=== PATIENT | female | born 1955 | race Caucasian/White ===

== ENCOUNTER 2017-02-24 13:19 | Outpatient (CLI) | payer BC | END 2017-02-24 13:20 | disposition home or self-care (01) | DX: Z12.31 Encounter for screening mammogram for malignant neoplasm of breast (principal); Z85.3 Personal history of malignant neoplasm of breast ==

== ENCOUNTER 2017-06-13 11:44 | Outpatient (CLI) | payer BC ==
--- NOTE | 2017-06-14 08:04 | XRAY Report ---
CHEST, PA AND LATERAL: 06/13/2017 CLINICAL HISTORY: Chronic cough with history of smoking. FINDINGS: Bony thorax shows absence of a small section of the left posterolateral 7th rib. Heart and great vessels are normal. Mediastinum is not widened. Pulmonary parenchyma demonstrates s ignificant elevation of the left hemidiaphragm. This suggests left diaphragmatic paralysis or old pa rtial resection of the left lung. Recommend clinical correlation. Mild atelectasis is noted in the left lower lung field. This most likely is secondary to the elevated left hemidiaphragm. Right lung shows a very slight increased parenchymal disease in the right lower lobe. Findings in th e right lower lobe are minimally progressive since preceding exam dated 05/27/2016. They are nonspec ific. The findings may be a result of mild atelectasis versus minimal pneumonia. Surgical clips are seen superimposed over the right hemithorax. These surgical clips reside in patie nt's right breast. IMPRESSION: 1. PARTIAL RESECTION OF THE POSTEROLATERAL ASPECT OF THE LEFT 7TH RIB. THIS IS EITHER RESULT OF A P RIOR THORACOTOMY OR OLD TRAUMA. 2. ELEVATED LEFT HEMIDIAPHRAGM IS NOTED. THIS MAY BE RESULT OF LEFT DIAPHRAGMATIC PARALYSIS VERSUS A PAST HISTORY OF A THORACOTOMY WITH PARTIAL LEFT LUNG RESECTION. RECOMMEND CLINICAL CORRELATION. 3. MILD INTERSTITIAL PARENCHYMAL DISEASE IS SEEN IN THE RIGHT LOWER LOBE. FINDINGS ARE MILDLY PROGR ESSIVE COMPARED TO 05/27/2016. THEY ARE NONSPECIFIC. ETIOLOGICAL CONSIDERATIONS INCLUDE A MILD P NEUMONIA VERSUS ATELECTASIS. JOB #: [id number] EXT JOB #:[id number]
== END 2017-06-13 11:45 | disposition home or self-care (01) ==
LOC: DI 11:44
PROVIDERS: ATTEND Internal Medicine
DX: J98.4 Other disorders of lung (principal); J98.6 Disorders of diaphragm
CPT/HCPCS: 71020

== ENCOUNTER 2017-07-14 13:04 | Outpatient (CLI) | payer BC ==
--- NOTE | 2017-07-14 16:59 | XRAY Report ---
TWO VIEW CHEST: 07/14/2017 CLINICAL INDICATION: Followup abnormal chest x-ray. COMPARISON: 06/13/2017 Frontal and lateral views of the chest demonstrate stable postoperative changes in the left chest. R ight basilar opacity has improved. No effusion or pneumothorax is seen. IMPRESSION: STABLE POSTOPERATIVE CHANGES IN THE LEFT CHEST. JOB #: [id number] EXT JOB #:[id number]
== END 2017-07-14 13:05 | disposition home or self-care (01) ==
LOC: DI 13:04
PROVIDERS: ATTEND Internal Medicine
DX: R91.8 Other nonspecific abnormal finding of lung field (principal)
CPT/HCPCS: 71020

== ENCOUNTER 2017-08-26 10:51 | Outpatient (CLI) | payer BC ==
--- NOTE | 2017-08-30 11:54 | DEXA Report ---
DEXA SCAN: 08/26/2017 CLINICAL INDICATION: Postmenopausal screening. TECHNIQUE: Dual energy x-ray absorptiometry (DXA) was performed on a Exabre system. Regions measured are the AP spine, femoral neck, and, if needed, forearm. COMPARISON: None. In accordance with the International Society for Clinical Densitometry (ISCD) guidelines, data from previous exams may be reanalyzed using current recommendations and techniques. This is done to allow a more accurate basis for comparison with the current study. FINDINGS The data for the lumbar spine is as follows: REGION BMD (g/cm/cm) T-SCORE Z-SCORE L1 1.166 0.3 1.4 L2 1.507 2.6 3.7 L3 1.568 3.1 4.2 L4 1.577 3.1 4.3 TOTAL 1.468 2.4 3.5 NOTE: All evaluable vertebrae are used for classification. The data for the hip is as follows: REGION BMD (g/cm/cm) T-SCORE Z-SCORE Neck 0.918 -0.9 0.3 TOTAL 0.941 -0.5 0.4 NOTE: The femoral neck or total proximal femur, whichever is lowest, is used for classification. IMPRESSION: THE WHO CLASSIFICATION BASED ON THE INTERNATIONAL REFERENCE STANDARD IS NORMAL. THE FRACTURE RISK IS NOT INCREASED. RECOMMENDATION: Patients with diagnosis of osteoporosis or osteopenia should have regular bone mineral density assessment. For those eligible for Medicare, routine testing is allowed once every 2 years. Testing frequency can be increased for patients who have rapidly progressing disease or for those who are receiving medical therapy to restore bone mass. COMMENT: World Health Organization (WHO) definitions for osteoporosis and osteopenia: NORMAL BMD: T-score at -1.0 or higher, fracture risk is low. OSTEOPENIA BMD: T-score between -1.0 and -2.5, fracture risk is increased. OSTEOPOROSIS BMD: T-score at -2.5 or lower, fracture risk high. National Osteoporosis Foundation recommends: 1. Obtain adequate dietary calcium (at least 1200 mg per day) and vitamin D (400 -800 international units per day). 2. Participate, as appropriate, in regular weightbearing and muscle- strengthening exercise. 3. Avoid tobacco use and reduce alcohol and caffeine intake. 4. For more detailed information see the website at www.NOF.org. MTDD
== END 2017-08-26 10:52 | disposition home or self-care (01) ==
LOC: DI 10:51
PROVIDERS: ATTEND Internal Medicine
DX: Z13.820 Encounter for screening for osteoporosis (principal)
CPT/HCPCS: 77080

== ENCOUNTER 2018-01-31 10:52 | Outpatient (CLI) | payer BC ==
--- NOTE | 2018-01-31 16:45 | CT Report ---
CT OF CHEST WITHOUT CONTRAST FOR LUNG CANCER SCREENIN01/31/2018 INDICATION: A 62-year-old asymptomatic patient with [id number] history of smoking, quit within the last 15 years. TECHNIQUE: Axial CT images of the chest were obtained without intravenous contrast, using low dose screening technique. COMPARISON: Previous chest CT 05/27/2016, previous chest x-ray 07/14/2017. FINDINGS: The heart and great vessels demonstrate mild atherosclerotic calcifications. No hilar or mediastinal lymphadenopathy is present. There are infiltrates in the right middle lobe, lingula, and left lower lobe. Previously seen loculated left pleural effusion has resolved. No suspicious pulmonary nodule or mass lesion is appreciated in the aerated portions of the lungs. No effusion or pneumothorax is present. Limited evaluation of upper abdominal structures demonstrates normal adrenal glands. Osseous structures demonstrate degenerative and postsurgical changes. IMPRESSION: 1. NO SUSPICIOUS PULMONARY NODULE OR MASS LESION IN THE AERATED PORTIONS OF THE LUNGS. 2. RIGHT MIDDLE LOBE, LINGULA, AND LEFT LOWER LOBE INFILTRATES. IF THE PATIENT 'S PRESENTATION IS COMPATIBLE WITH PNEUMONIA, CONSIDER REPEAT SCANNING FOLLOWING APPROPRIATE ANTIBIOTIC THERAPY. IF THE PATIENT IS TRULY ASYMPTOMATIC, BRONCHOSCOPY WOULD BE RECOMMENDED FOR FURTHER EVALUATION. LUNG RADS category 5, potentially clinically significant findings likely not representing lung cancer. Please see above recommendations. cc: Richard Grullon MD TD: 01/31/2018 15:50 cc: Richard Grullon MD MTDD
== END 2018-01-31 10:53 | disposition home or self-care (01) ==
LOC: DI 10:52
PROVIDERS: ATTEND Internal Medicine
DX: Z12.2 Encounter for screening for malignant neoplasm of respiratory organs (principal); R91.8 Other nonspecific abnormal finding of lung field; Z87.891 Personal history of nicotine dependence

== ENCOUNTER 2018-03-06 12:55 | Outpatient (CLI) | payer BC ==
--- NOTE | 2018-03-07 10:42 | Mammography Report ---
DIGITAL SCREENING MAMMOGRAM: 03/06/2018 CLINICAL INDICATION: A 62-year-old with personal history of right breast cancer, status post lumpectomy and radiation therapy, history of late childbearing for screening. COMPARISON: 01/2017, 01/2016, 03/2015, 03/2014, 09/2013, 12/2012, 06/2012, 12/2011, 12/2010, 06/2010. TECHNIQUE: Routine CC and MLO projections were obtained of the breasts. FINDINGS: The breasts again demonstrate heterogeneously dense fibroglandular parenchyma bilaterally. Postoperative and post-treatment changes in the right breast are stable. Coarse, typically benign calcifications are present. No suspicious masses, clustered microcalcifications, or regions of architectural distortion are identified. IMPRESSION: BENIGN FINDINGS. RECOMMENDATION: Routine annual screening unless otherwise clinically indicated. BIRADS CATEGORY 2 - BENIGN FINDINGS. STANDARD QUALIFYING STATEMENTS: 1. This examination was reviewed with the aid of Computer-Aided Detection (CAD). 2. A negative or benign imaging report should not delay biopsy if clinically suspicious findings are present. Consider surgical consultation if warranted. More than 5% of cancers are not identified by imaging. 3. Dense breasts may obscure an underlying neoplasm. TD: 03/07/2018 10:41
== END 2018-03-06 12:56 | disposition home or self-care (01) ==
LOC: DI 12:55
PROVIDERS: ATTEND Internal Medicine
DX: Z12.31 Encounter for screening mammogram for malignant neoplasm of breast (principal); Z85.3 Personal history of malignant neoplasm of breast
CPT/HCPCS: 77067

== ENCOUNTER 2018-07-04 08:00 | Outpatient (CLI) | payer BC | END 2018-07-04 08:01 | LOC: LAB.R 08:00 | PROVIDERS: ATTEND Podiatrist | DX: L03.031 Cellulitis of right toe (principal) | CPT/HCPCS: 87070; 87181; 87205 ==

== ENCOUNTER 2019-03-07 13:14 | Outpatient (CLI) | payer BC ==
--- NOTE | 2019-03-08 08:25 | Mammography Report ---
Reason: ANNUAL SCREENING Procedure Date: 03/07/2019 Accession Number: [id number] / [id number] Procedure: [facility] - Screening Mammo Dig Bilat CPT Code: FULL RESULT: EXAM: Screening Mammo Dig Bilat DATE: 03/07/2019 2:15 PM CLINICAL HISTORY: Screening encounter. Personal history of right breast cancer and late childbearing. TECHNIQUE: (B) - Bilateral CC, laterally exaggerated CC, MLO views were obtained. COMPARISON: 03/06/2018 through 10/08/2013. PARENCHYMAL PATTERN: (D) - The breast(s) demonstrate(s) heterogeneously dense fibroglandular parenchyma. FINDINGS: Postsurgical changes in the right breast are stable. Typically benign coarse calcifications are noted. There are no suspicious masses, calcifications, or areas of distortion. IMPRESSION: Benign findings. BI-RADS category 2. RECOMMENDATION: (ANNUAL) - Recommend routine annual screening mammography. BI-RADS CATEGORY: (2) - Benign Findings. STANDARD QUALIFYING STATEMENTS: 1. This examination was not reviewed with the aid of Computer-Aided Detection (CAD). 2. A negative or benign imaging report should not preclude biopsy if clinically suspicious findings are present. 3. Dense breasts may obscure an underlying neoplasm. 4. This examination was reviewed without the aid of 3D breast imaging (tomosynthesis).
== END 2019-03-07 13:15 | disposition home or self-care (01) ==
LOC: DI 13:14
PROVIDERS: ATTEND Internal Medicine
DX: Z12.31 Encounter for screening mammogram for malignant neoplasm of breast (principal); Z85.3 Personal history of malignant neoplasm of breast
CPT/HCPCS: 77067

== ENCOUNTER 2019-10-04 10:52 | Outpatient (CLI) | payer BC ==
--- NOTE | 2019-10-05 08:19 | XRAY Report ---
Reason: CHRONIC OBSTRUCTIVE LUNG DISEASE Procedure Date: 10/04/2019 Accession Number: [id number] / [id number] Procedure: XRS - Chest 2 View X-Ray CPT Code: 16206 Final Report FULL RESULT: EXAM: CHEST RADIOGRAPHY VIEWS EXAM DATE: 10/04/2019. CLINICAL HISTORY: Chronic obstructive lung disease. Cough and wheezing for 1 month. COMPARISON: PA and lateral chest done 07/14/2017. TECHNIQUE: PA and lateral views. FINDINGS: Lungs/Pleura: Normal vasculature. Left lower lung consolidation and volume loss similar to the prior examination. Right lower lung scarring is unchanged. Chronic left diaphragmatic elevation. No pleural effusion visible. No pneumothorax. Mediastinum: Normal cardiac and mediastinal contours. Bones: Part of the lateral left seventh rib has been resected. Other: Multiple surgical clips in the right breast. IMPRESSION: Consolidation and volume loss of the left lower lung, appears unchanged from 07/14/2017. Findings could be secondary to recurrent pneumonia, or chronic consolidation and volume loss from previous inflammatory disease, or endobronchial obstruction. Further evaluation could be obtained with chest CT. Other findings as described above. RADIA
== END 2019-10-04 10:53 | disposition home or self-care (01) ==
LOC: DI.S 10:52
PROVIDERS: ATTEND Internal Medicine
DX: J44.9 Chronic obstructive pulmonary disease, unspecified (principal); R91.8 Other nonspecific abnormal finding of lung field
CPT/HCPCS: 71046

== ENCOUNTER 2019-11-08 13:11 | Outpatient (CLI) | payer BC | END 2019-11-08 13:12 | disposition short-term general hospital (02) | LOC: EMS 13:11 | PROVIDERS: ATTEND Surgery | DX: R53.1 Weakness (principal); R06.02 Shortness of breath; R53.83 Other fatigue; R09.89 Other specified symptoms and signs involving the circulatory and respiratory systems; R05 Cough; R26.2 Difficulty in walking, not elsewhere classified | CPT/HCPCS: A0425; A0427 ==

== ENCOUNTER 2020-07-15 10:50 | Outpatient (CLI) | payer BC ==
--- NOTE | 2020-07-16 08:18 | Mammography Report ---
BILATERAL DIGITAL SCREENING MAMMOGRAM: 07/15/2020 CLINICAL: Routine screening. Personal history of right breast cancer. Comparison is made to exams dated: 03/07/2019 mammogram, 03/06/2018 mammogram, 02/24/2017 mammogram, 01/28 mammogram, and 04/04/2015 mammogram - [facility]. The tissue of both breasts is heterogeneously dense. This may lower the sensitivity of mammography. There are benign post operative findings in the right breast. No significant masses, calcifications, or other findings are seen in either breast. There has been no significant interval change. IMPRESSION: BENIGN There is no mammographic evidence of malignancy. A 1 year screening mammogram is recommended. This exam was interpreted at Station ID: [id number]. NOTE: For mammograms, a report in lay terms will be sent to the patient. Approximately 15% of breast malignancies will not be visualized mammographically. In the management of a palpable breast mass, a negative mammogram must not discourage biopsy of a clinically suspicious lesion. Electronically Signed By: Thom vasquez/johnny:07/15/2020 15:45:19 ACR BI-RADS Category 2: Benign Finding(s) 3342F PARENCHYMAL PATTERN: (D) - The breast(s) demonstrate(s) heterogeneously dense fibroglandular chris blackburn. BI-RADS CATEGORY: (2) - 2 RECOMMENDATION: (ANNUAL) - Recommend routine annual screening mammography. [id number] 1 year screening LATERALITY: (B)
== END 2020-07-15 10:51 | disposition home or self-care (01) ==
LOC: DI 10:50
PROVIDERS: ATTEND Internal Medicine
DX: Z12.31 Encounter for screening mammogram for malignant neoplasm of breast (principal)
CPT/HCPCS: 77067

== ENCOUNTER 2020-11-15 17:54 | Outpatient (CLI) | payer BC | END 2020-11-15 17:55 | disposition short-term general hospital (02) | LOC: EMS 17:54 | PROVIDERS: ATTEND Surgery | DX: R06.02 Shortness of breath (principal); R11.2 Nausea with vomiting, unspecified; R53.1 Weakness; R68.83 Chills (without fever) | CPT/HCPCS: A0425; A0427 ==

== ENCOUNTER 2020-12-20 14:27 | Outpatient (CLI) | payer BC ==
--- NOTE | 2020-12-20 17:12 | XRAY Report ---
PROCEDURE: Chest 2 View X-Ray INDICATIONS: pneumonia TECHNIQUE: 2 view(s) of the chest. COMPARISON: 07/14/2017 and 10/05/2019 FINDINGS: Exam is limited given patient positioning. Surgical changes and devices: Surgical changes overlying the right chest wall. Lungs and pleura: Stable elevation of the right hemidiaphragm. Left basilar opacities are also nonspe cific and unchanged from prior exam. Mediastinum: Mediastinal contours are unchanged. Bones and chest wall: No suspicious bony abnormalities. Soft tissues appear unremarkable. IMPRESSION: Stable elevation of the left hemidiaphragm and left basilar opacity. Reviewed by: Julio Cesar Saavedra DO on 12/20/2020 4:11 PM [facility] Approved by: Julio Cesar Saavedra DO on 12/20/2020 4:11 PM [facility] Station ID: [id number]
[2020-12-20 18:43] LABS: ALBUMIN 3.4 g/dL (3.2-5.5); ALBUMIN/GLOBULIN RATIO 0.9 (1.0-2.2); BILIRUBIN,TOTAL 0.8 mg/dL (0.2-1.0); CREATININE 0.8 mg/dL (0.4-1.0); TOTAL PROTEIN 7.2 g/dL (6.7-8.2)
== END 2020-12-20 14:28 | disposition home or self-care (01) ==
LOC: DI.S 14:27
PROVIDERS: ATTEND Nurse Practitioner Family
DX: J69.0 Pneumonitis due to inhalation of food and vomit (principal); E87.6 Hypokalemia
CPT/HCPCS: 36415; 80053

== ENCOUNTER 2020-12-20 19:18 | Outpatient (CLI) | payer BC | END 2020-12-20 19:19 | disposition critical access hospital (66) | LOC: EMS 19:18 | PROVIDERS: ATTEND Surgery | DX: R56.9 Unspecified convulsions (principal) | CPT/HCPCS: A0425; A0427 ==

== ENCOUNTER 2020-12-20 19:58 | Inpatient (IN) | payer BC ==
--- NOTE | 2020-12-20 20:05 | ED Physician Documentation ---
PD HPI SEIZURE - Stated complaint Stated Complaint: SEIZURE - History obtained from History obtained from: Patient, EMS - Additional information Additional information: She had a remote traumatic brain injury with craniotomy. Subsequent to that has right-sided deficits. Per her report she was hospitalized in [place] from about the through 25 November for pneumonia. On discharge she was started on Lasix. She is never had a seizure. Today she had outpatient labs done which were notable for a sodium of 122, it looks like her baseline sodium is pretty much normal, potassium of 2.4, chloride of 65, and a CO2 of 40. Subsequent to that she had a 1 minute tonic-clonic seizure. She feels fine now. She was postictal for the paramedics. 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 - Present Medications Home Medications: Ambulatory Orders Medication Instructions Recorded Confirmed Albuterol [Proventil Hfa] 1 puffs INH .FREQ 07/24/13 05/27/16 Baclofen 20 mg PO TID 07/24/13 05/27/16 Calcium Carbonate [Calcium] 0 mg PO DAILY 07/24/13 05/27/16 Cholecalciferol (Vitamin D3) 1,000 unit PO DAILY 07/24/13 05/27/16 [Vitamin D3] Folic Acid 1 mg PO DAILY 07/24/13 05/27/16 Hydroxyzine HCl 25 mg PO BID 07/24/13 05/27/16 Ipratropium/Albuterol Inhaler 0 puffs INH .FREQ 07/24/13 05/27/16 [Combivent Inhaler] Lovastatin [Mevacor] 40 mg PO HS 07/24/13 05/27/16 Multivitamin [Multivitamins] 1 each PO DAILY 07/24/13 05/27/16 Sallis-3 Fatty Acids [Fish Oil] 0 mg PO DAILY 07/24/13 05/27/16 Sennosides [Senna] 0 mg PO DAILY 07/24/13 05/27/16 diphenhydrAMINE [Benadryl] 0 mg PO HS 07/24/13 05/27/16 B Vitamin 0 PO DAILY 08/21/13 08/21/13 Aspirin [Tracey Chewable Aspirin] 1 tab PO DAILY 05/27/16 05/27/16 Biotin 1 tab PO DAILY 05/27/16 05/27/16 Morphine ER 1 tab PO BID 05/27/16 05/27/16 lisinopriL [Lisinopril] 1 tab PO DAILY 05/27/16 05/27/16 oxyCODONE [Roxicodone] 10 mg PO Q6HR PRN 05/27/16 05/27/16 - Allergies Allergies/Adverse Reactions: Allergies Allergy/AdvReac Type Severity Reaction Status Date / Time Environmental Allergy Intermediate Respiratory Uncoded 12/20/20 20:06 - Social History Does the pt smoke?: No Smoking Status: Former smoker Does the pt drink ETOH?: No Does the pt have substance abuse?: No - Immunizations Immunizations are current?: No Immunizations: TDAP >10years/unknown PD ED PE NORMAL - Vitals Vital signs reviewed: Yes - General General: Alert and oriented X 3, Other (Well-appearing woman with chronic right- sided deficits laying in bed in no distress) - Neck Neck: Supple, no meningeal sign, No bony TTP - Cardiac Cardiac: RRR, No murmur - Respiratory Respiratory: No respiratory distress, Clear bilaterally - Abdomen Abdomen: Non tender - Back Back: No CVA TTP, No spinal TTP - Derm Derm: Normal color, Warm and dry - Neuro Neuro: Alert and oriented X 3, Other (She has basically no mobility of the right upper extremity and minimal mobility of the right lower extremity.) Eye Opening: Spontaneous Motor: Obeys Commands Verbal: Oriented GCS Score: 15 - Psych Psych: Normal mood, Normal affect Results - Vitals Vitals: Vital Signs - 24 hr 12/20/20 12/20/20 12/20/20 20:06 20:39 21:09 Temperature 36.9 C Heart Rate 76 88 91 Respiratory 19 18 18 Rate Blood Pressure 154/84 H 157/80 H 131/82 H O2 Saturation 89 L 99 99 12/20/20 21:30 Temperature Heart Rate 96 Respiratory 18 Rate Blood Pressure 146/88 H O2 Saturation 100 Oxygen O2 Source Nasal cannula - EKG (time done) 2006 Rate: Rate (enter#) (83) Rhythm: NSR (w pvcs), LAE [place]: Normal QRS: LVH Ischemia: Normal ST segments - Labs Labs: Laboratory Tests 12/20/20 12/20/20 12/20/20 20:34 20:36 21:36 WBC 13.6 H RBC 5.04 Hgb 14.9 Hct 42.9 MCV 85.1 MCH 29.6 MCHC 34.7 RDW 11.9 L Plt Count 280 MPV 9.3 Neut # (Auto) 10.5 H Lymph # (Auto) 2.0 Barron # (Auto) 0.9 Eos # (Auto) 0.1 Baso # (Auto) 0.1 Absolute Nucleated RBC 0.00 Nucleated RBC % 0.0 Sodium 124 L Potassium 2.4 L* Chloride 67 L* Carbon Dioxide 40 H* Anion Gap 17.0 H BUN 5 L Creatinine 0.6 Estimated GFR (MDRD) 101 Glucose 115 H Calcium 8.9 Magnesium 1.5 L Total Bilirubin 1.0 AST 34 ALT 23 Alkaline Phosphatase 68 Total Protein 7.0 Albumin 3.6 Globulin 3.4 Albumin/Globulin Ratio 1.1 Nasal Adenovirus (PCR) NOT DETECTED Nasal B. parapertussis DNA (PCR) NOT DETECTED Nasal Coronavir 229E PCR NOT DETECTED Nasal Coronavir HKU1 PCR NOT DETECTED Nasal Coronavir NL63 PCR NOT DETECTED Nasal Coronavir OC43 PCR NOT DETECTED Nasal Enterovir/Rhinovir PCR NOT DETECTED Nasal Influenza B PCR NOT DETECTED Nasal Influenza A PCR NOT DETECTED Nasal Parainfluen 1 PCR NOT DETECTED Nasal Parainfluen 2 PCR NOT DETECTED Nasal Parainfluen 3 PCR NOT DETECTED Nasal Parainfluen 4 PCR NOT DETECTED Nasal RSV (PCR) NOT DETECTED Nasal B.pertussis DNA PCR NOT DETECTED Nasal C.pneumoniae (PCR) NOT DETECTED Lon Human Metapneumo PCR NOT DETECTED Nasal M.pneumoniae (PCR) NOT DETECTED Nasal SARS-CoV-2 (PCR) NOT DETECTED - Rads (name of study) CT Head Radiology: EMP read contemporaneously (Old post) PD MEDICAL DECISION MAKING - ED course ED course: She had a chest x-ray done outpatient earlier in the day, 2 view chest which I looked at. It shows stable elevation of the left hemidiaphragm and stable left basilar opacities. [employer] respiratory panel ordered to rapidly test specifically for COVID-19 in this patient who is expected to be hospitalized 65-year-old woman with history of remote traumatic brain injury presents with a seizure today. Note made that she had outpatient labs done today with sodium of 122, potassium 2.5, bicarb 40 and chloride of 65. I suspect her new onset seizure Was probably caused by a combination of prior traumatic brain injury as well as profound electrolyte abnormalities, the electrolyte abnormalities are likely due to her being on furosemide since she left the hospital a few weeks ago. Given the profundity of her electrolyte abnormalities and new onset seizure she was given 100ml of 3% hypertonic saline here as well as both oral and potassium supplementation. She is not currently encephalopathic. I updated her by phone who was appreciative and spoke with Dr. Mendoza for admission at 9:40 PM. Departure - Departure Disposition: [facility] DC/Xfer Clinical Impression: Seizure, Hyponatremia, Hypokalemia, Hypochloremia, Alkalosis Condition: Serious Discharge Date/Time: 12/20/20 22:30
[2020-12-20] MEDS ORDERED: SODIUM CHLORIDE 0.9% 1,000 ML IV STA ×2 (20:32→21:07)
[2020-12-20] MEDS ORDERED: POTASSIUM CHLOR 10 MEQ/100 ML 10 MEQ/100 ML BAG IV STA (20:32)
[2020-12-20] MEDS ORDERED: POTASSIUM CHLORIDE 20 MEQ TABLET PO STA (20:32)
[2020-12-20 20:46] LABS: BASOPHILS # (AUTO) 0.1 10^3/uL (0.0-0.1); BASOPHILS % (AUTO) 0.4 %; EOSINOPHILS # (AUTO) 0.1 10^3/uL (0.0-0.7); EOSINOPHILS % (AUTO) 0.4 %; HGB - HEMOGLOBIN 14.9 g/dL (12.0-16.0); LYMPHOCYTES % (AUTO) 14.9 %; MEAN CORPUSCULAR HEMOGLOBIN 29.6 pg (27.0-31.0); MEAN CORPUSCULAR HGB CONC 34.7 g/dL (32.0-36.0); MEAN CORPUSCULAR VOLUME 85.1 fL (81.0-99.0); MEAN PLATELET VOLUME 9.3 fL (7.9-10.8); MONOCYTES # (AUTO) 0.9 10^3/uL (0.0-1.0); MONOCYTES % (AUTO) 6.3 %; NEUTROPHILS # (AUTO) 10.5 10^3/uL (1.5-6.6); NEUTROPHILS % (AUTO) 77.5 %; PLT - PLATELET COUNT 280 10^3/uL (130-450); RED BLOOD COUNT 5.04 10^6/uL (4.20-5.40); RED CELL DISTRIBUTION WIDTH 11.9 % (12.0-15.0); WHITE BLOOD COUNT 13.6 x10^3/uL (4.8-10.8)
[2020-12-20] MEDS ORDERED: SODIUM CHLORIDE 3% HYPERTONIC 500 ML IV SCH ×2 (21:00)
--- NOTE | 2020-12-20 21:32 | CT Report ---
PROCEDURE: HEAD WO INDICATIONS: seziure TECHNIQUE: Noncontrast 4.5 mm thick angled axial sections acquired from the foramen magnum to the vertex. For r adiation dose reduction, the following was used: automated exposure control, adjustment of mA and/or kV according to patient size. COMPARISON: None. FINDINGS: Image quality: There is mild motion artifact limiting evaluation. Evaluation is also limited by subop timal positioning. CSF spaces: Basal cisterns are patent. No extra-axial fluid collections. There is mild right predo minant cerebral volume loss with prominence of the ventricles and sulci. Brain: No definite intracranial hemorrhage, mass, or mass effect. There are subcortical and perivent ricular white matter hypodensities compatible with mild chronic small vessel ischemic changes. Skull and face: Calvarium and visualized facial bones demonstrate no acute fractures. There are post surgical changes consistent with prior partial right temporal craniectomy as well as right frontal pa rietal temporal craniotomy. Sinuses: Visualized sinuses and mastoids are clear. IMPRESSION: 1. No definite acute intracranial abnormality. 2. Right-sided postsurgical changes of the calvarium as described. 3. Right-sided predominant mild cerebral volume loss may reflect sequelae of prior surgery or trauma. 4. Mild chronic white matter small vessel ischemic changes. Reviewed by: Dre Reyes MD on 12/20/2020 9:30 PM [facility] Approved by: Dre Reyes MD on 12/20/2020 9:30 PM PST Station ID: [id number]
[2020-12-20] MEDS ORDERED: oxyCODONE 5 MG TABLET PO PRN (21:44)
[2020-12-20] MEDS ORDERED: SODIUM CHLORIDE FLUSH 0.9% 10 ML SYRINGE IVP PRN (21:44)
[2020-12-20] MEDS ORDERED: ACETAMINOPHEN 325 MG TABLET PO PRN (21:44)
[2020-12-20] MEDS ORDERED: ONDANSETRON ODT 4 MG TABLET TL PRN (21:44)
[2020-12-20 21:56] LABS: ALBUMIN 3.6 g/dL (3.2-5.5); ALBUMIN/GLOBULIN RATIO 1.1 (1.0-2.2); CALCIUM 8.9 mg/dL (8.5-10.3); CREATININE 0.6 mg/dL (0.4-1.0); MAGNESIUM 1.5 mg/dL (1.7-2.8)
[2020-12-20] MEDS ORDERED: SODIUM CHLORIDE 3% HYPERTONIC 100 ML IV SCH (22:00)
[2020-12-20 22:05] LABS: C. PNEUMONIAE- RESP PCR PANEL NOT DETECTED
--- NOTE | 2020-12-20 23:10 | HISTORY & PHYSICAL EXAMINATION ---
Chief Complaint - Chief Complaint Chief Complaint: Seizure History of Present Illness - Admitted From Admitted From:: ED - History Obtained From Records Reviewed: 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 She was postictal when the paramedics brought her in. The only memory she has of the regarding the event is being unable to get out of bed afterward. She has never had a seizure before and reports feeling better. She was hospitalized in [place] at the end of October for a pneumonia. She was discharged New Year's Day and started on Lasix and azithromycin (she says she only started taking the azithromycin today because "it was in my closet and I forgot about it"). She had outpatient labs done today which were notable for a sodium of 122 (it looks like her baseline sodium is pretty much normal), potassium of 2.4, chloride of 65, and a CO2 of 40. In the ED, her sodium was 124, potassium 2.4, chloride 67, CO2 40. She was given 100 mL of 3% hypertonic saline and oral potassium supplementation. She is being admitted for her electrolyte abnormalities in the context of new onset seizure. History - Past Medical History Cardiovascular: reports: High cholesterol, Deep vein thrombosis Respiratory: reports: Asthma, COPD Neuro: reports: Other (TBI in 2002. She says it had something to do with "oxygen deprivation" but doesn't remember any other specifics.) GI: reports: Colon polyps : reports: Frequency Psych: reports: Anxiety Musculoskeletal: reports: Chronic back pain, Other MRSA Hx?: No - Past Surgical History General: reports: Colonoscopy /VAT CLEANER: reports: Dilation and currettage Neuro: reports: Craniotomy (2002) - Family & Social History Family History: Mother: (Mom aged 68, unknown cause. Dad aged 70.), Father: , Cancer, Sister: Alive and Well, Brother: Alive and Well Family History Comment/Other: Sisters: Kofi (70, healthy, [place], [place]), Shelby (67, healthy, [place], [place]), Olena (66, DM on dialysis, lives w/ Guillermina). Brother: Leighton (Not sure of age but younger, healthy) Living arrangement: At home Living Situation: With spouse/s.o. - Substance History Use: Uses substance without health or social issues: Tobacco (Smoked 2-3 ppd for 20 year. Quit 6 years ago.), Alcohol (Used to drink heavily. A fifth of vodka a day. Quit 6 years ago.) Dependence: Experiences withdrawal or developed tolerances: Tobacco Tobacco Details: Cigarettes - POLST POLST Status: (She states that she doesn't want any interventions but doesn't have any documentation.) Meds/Allgy - Home Medications Home Medications: Ambulatory Orders Medication Instructions Recorded Confirmed Albuterol [Proventil Hfa] 1 puffs INH .FREQ 07/24/13 05/27/16 Baclofen 20 mg PO TID 07/24/13 05/27/16 Calcium Carbonate [Calcium] 0 mg PO DAILY 07/24/13 05/27/16 Cholecalciferol (Vitamin D3) 1,000 unit PO DAILY 07/24/13 05/27/16 [Vitamin D3] Folic Acid 1 mg PO DAILY 07/24/13 05/27/16 Hydroxyzine HCl 25 mg PO BID 07/24/13 05/27/16 Ipratropium/Albuterol Inhaler 0 puffs INH .FREQ 07/24/13 05/27/16 [Combivent Inhaler] Lovastatin [Mevacor] 40 mg PO HS 07/24/13 05/27/16 Multivitamin [Multivitamins] 1 each PO DAILY 07/24/13 05/27/16 [place]-3 Fatty Acids [Fish Oil] 0 mg PO DAILY 07/24/13 05/27/16 Sennosides [Senna] 0 mg PO DAILY 07/24/13 05/27/16 diphenhydrAMINE [Benadryl] 0 mg PO HS 07/24/13 05/27/16 B Vitamin 0 PO DAILY 08/21/13 08/21/13 Aspirin [Tracey Chewable Aspirin] 1 tab PO DAILY 05/27/16 05/27/16 Biotin 1 tab PO DAILY 05/27/16 05/27/16 Morphine ER 1 tab PO BID 05/27/16 05/27/16 lisinopriL [Lisinopril] 1 tab PO DAILY 05/27/16 05/27/16 oxyCODONE [Roxicodone] 10 mg PO Q6HR PRN 05/27/16 05/27/16 - Allergies Allergies/Adverse Reactions: Allergies Allergy/AdvReac Type Severity Reaction Status Date / Time Environmental Allergy Intermediate Respiratory Uncoded 12/20/20 20:06 Review of Systems - Constitutional Constitutional: denies: Fatigue, Fever, Chills, Weakness - Eyes Eyes: denies: Pain - Ears, Nose & Throat Ears, Nose & Throat: denies: Ear pain, Hearing loss, Tinnitus, Nasal discharge, Nasal congestion, Sore throat - Cardiovascular Cariovascular: denies: Palpitations, Chest pain, Edema, Lightheadedness - Respiratory Respiratory: denies: Cough, Hemoptysis, SOB at rest - Gastrointestinal Gastrointestinal: denies: Abdominal pain, Constipation, Diarrhea, Nausea, Vomiting - Genitourinary Genitourinary: denies: Dysuria, Hematuria - Musculoskeletal Musculoskeletal: denies: Muscle pain, Muscle aches - Integumentary Integumentary: denies: Rash - Neurological Neurological: reports: Pre-existing deficit (right side), Seizures. denies: Headache, Dizziness, Numbness - Psychiatric Psychiatric: denies: Depression - Endocrine Endocrine: denies: Polyuria - Hematologic/Lymphatic Hematologic/Lymphatic: denies: Bruising Prior Level of Functionality: Has limited mobility of her right side but states that she is able to walk, dress, and feed herself. Exam - Vital Signs Reviewed Vital Signs: Yes Vital Signs: Vital Signs x48h Temp Pulse Resp BP Pulse Ox 12/20/20 21:30 96 18 146/88 H 100 12/20/20 21:09 91 18 131/82 H 99 12/20/20 20:39 88 18 157/80 H 99 12/20/20 20:06 36.9 C 76 19 154/84 H 89 L - Physical Exam General Appearance: positive: No acute distress, Alert Eyes Bilateral: positive: PERRL, Conjunctivae nml, No scleral icterus, Other (right eye exotropia) ENT: positive: Other (white plaque on tongue). negative: Purulent nasal drainage, Pharyngeal erythema Neck: positive: No JVD, Other (Mild submandibular/anterior cervical lymph node tenderness). negative: Lymphadenopathy (R), Lymphadenopathy (L) Respiratory: positive: Chest non-tender, No respiratory distress, Other (a little diminished). negative: Wheezes, Rales, Rhonchi Cardiovascular: positive: Regular rate & rhythm, No murmur, No gallop. negative: Tachycardia, Bradycardia Abdomen: positive: Non-tender, Nml bowel sounds, No distention. negative: Guarding, Rebound Skin: positive: Color nml, No rash, Warm, Dry. negative: Cyanosis, Diaphoresis, Pallor Extremities: positive: No pedal edema, Calf tenderness (right leg) Neurologic/Psychiatric: positive: Oriented x3, Mood/affect nml, Other (right- sided deficits subsequent to TBI in 2002) Conclusion/Plan - Problem List (1) Electrolyte abnormality Conclusion/Plan: Potentially caused by recently starting Lasix. In the ED, her sodium was 124, potassium 2.4, chloride 67, CO2 40. She was given 100 mL of 3% hypertonic saline and oral potassium supplementation. She is currently asymptomatic. Plan: Fluid maintenance. Will give hypertonic saline (will not increase sodium by more than 6 points per day) and potassium chloride. (2) New onset seizure Conclusion/Plan: Possibly due to a combination of hyponatremia and a lowered seizure threshold after having a TBI in 2002. She has never had a seizure before today. She quit drinking 6 years ago. Plan: Seizure pads on bed. Will treat electrolyte abnormality and continue to monitor. (3) Asthma Conclusion/Plan: She uses it 3-4 times throughout the day. No current exacerbation. Plan: She has an inhaler that she can use as needed. Qualifiers: Asthma severity: moderate Asthma persistence: persistent Asthma complication type: uncomplicated Qualified Code(s): J45.40 - Moderate persistent asthma, uncomplicated (4) COPD (chronic obstructive pulmonary disease) Conclusion/Plan: She smoked 2-3 ppd for 20 years. Quit 6 years ago. She's on 4L O2 NC at home. Her O2 sats at home are normally between 94-96%. Not in acute exacerbation. Plan: O2 via NC to maintain level above 94%. She has an inhaler to use as needed. Qualifiers: COPD type: COPD with acute exacerbation Qualified Code(s): J44.1 - Chronic obstructive pulmonary disease with (acute) exacerbation (5) Right calf pain Conclusion/Plan: She says she has had right calf pain since her last hospitalization. The calf isn't erythematous or swollen and is equal in size to the other calf. She has a history of DVT. Plan: Venous US and DVT prophylaxis with compression stockings. - Lab Results Lab results reviewed: Yes Fish Bones: 12/20/20 20:36 12/20/20 23:50 - EKG Results EKG Interpreted Independently: Yes Core Measures - Anticipated LOS I expect patient to be DC'd or transferred within 96 hours.: Yes - DVT/VTE - Prophylaxis VTE/DVT Device ordered at admit?: Yes
[2020-12-20] MEDS: SODIUM CHLORIDE 0.9% 1,000 ML IV SCH (23:46)
[2020-12-20] MEDS: SODIUM CHLORIDE FLUSH 0.9% 10 ML SYRINGE IVP SCH (23:47)
[2020-12-21 00:08] LABS: CALCIUM 8.6 mg/dL (8.5-10.3); CREATININE 0.7 mg/dL (0.4-1.0)
[2020-12-21] MEDS ORDERED: SODIUM CHLORIDE 3% HYPERTONIC 500 ML IV SCH (01:00)
[2020-12-21] MEDS: oxyCODONE 5 MG TABLET PO PRN ×2 (01:06→16:57)
[2020-12-21] MEDS: POTASSIUM CHLORIDE 20 MEQ TABLET PO SCH ×3 (01:06→20:57)
[2020-12-21] MEDS ORDERED: MIN OIL/DIMETHICON/COCONUT OIL 92 GM TUBE TOP PRN (01:45)
[2020-12-21] MEDS: NYSTATIN CREAM 15 GM TUBE TOP SCH ×3 (02:01→21:01)
[2020-12-21 05:30] LABS: BASOPHILS # (AUTO) 0.1 10^3/uL (0.0-0.1); BASOPHILS % (AUTO) 0.4 %; EOSINOPHILS % (AUTO) 0.2 %; HGB - HEMOGLOBIN 14.4 g/dL (12.0-16.0); LYMPHOCYTES # (AUTO) 2.5 10^3/uL (1.5-3.5); LYMPHOCYTES % (AUTO) 17.6 %; MEAN CORPUSCULAR HEMOGLOBIN 29.7 pg (27.0-31.0); MEAN CORPUSCULAR HGB CONC 33.8 g/dL (32.0-36.0); MEAN CORPUSCULAR VOLUME 87.8 fL (81.0-99.0); MEAN PLATELET VOLUME 9.6 fL (7.9-10.8); MONOCYTES # (AUTO) 1.2 10^3/uL (0.0-1.0); MONOCYTES % (AUTO) 8.8 %; NEUTROPHILS # (AUTO) 10.2 10^3/uL (1.5-6.6); NEUTROPHILS % (AUTO) 72.4 %; PLT - PLATELET COUNT 230 10^3/uL (130-450); RED BLOOD COUNT 4.85 10^6/uL (4.20-5.40); RED CELL DISTRIBUTION WIDTH 12.1 % (12.0-15.0); WHITE BLOOD COUNT 14.1 x10^3/uL (4.8-10.8)
[2020-12-21 06:57] LABS: BUN - BLOOD UREA NITROGEN < 5 mg/dL (6-20); CALCIUM 8.3 mg/dL (8.5-10.3); CREATININE 0.6 mg/dL (0.4-1.0); GLUCOSE 103 mg/dL (70-100)
[2020-12-21 06:58] LABS: CARBON DIOXIDE - CO2 39 mmol/L (21-32); CHLORIDE 80 mmol/L (101-111)
--- NOTE | 2020-12-21 06:58 | PROVIDER PROGRESS NOTE ---
Subjective - Prog Note Date Prog Note Date: 12/21/20 Prog Note Time: 06:55 - Subjective Pt reports feeling: No change Subjective: No changes overnight. She is lethargic, but awakens to voice easily. No seizures have recurred. Current Medications - Current Medications Current Medications: Active Medications Acetaminophen (Acetaminophen 325 Mg Tablet) 650 mg PO Q4HR PRN PRN Reason: Pain 1 to 4 Guaifenesin (Guaifenesin 600 Mg Tablet) 600 mg PO BID [facility] Sodium Chloride (Normal Saline 0.9%) 1,000 mls @ 83.333 mls/hr IV .Q12H [facility] Last Admin: 12/20/20 23:46 Dose: 83.333 mls/hr Documented by: Mineral Oil (Min Oil/Dimethicon/Coconut Oil 92 Gm Tube) 1 applic TOP PRN PRN PRN Reason: Skin Care Last Admin: 12/21/20 02:01 Dose: 1 applic Documented by: Nystatin (Nystatin Cream 15 Gm Tube) 1 applic TOP BID [facility] Last Admin: 12/21/20 02:01 Dose: 1 appful Documented by: Nystatin (Nystatin [id number] Units/5 Ml Udc) 5 ml PO QID [facility] Ondansetron HCl (Ondansetron Odt 4 Mg Tablet) 4 mg TL Q6HR PRN PRN Reason: Nausea / Vomiting Oxycodone HCl (Oxycodone 5 Mg Tablet) 10 mg PO Q4HR PRN PRN Reason: PAIN Last Admin: 12/21/20 01:06 Dose: 10 mg Documented by: Potassium Chloride (Potassium Chloride 20 Meq Tablet) 40 meq PO BID [facility] Stop: 12/21/20 21:01 Last Admin: 12/21/20 01:06 Dose: 40 meq Documented by: Sodium Chloride (Sodium Chloride Flush 0.9% 10 Ml Syringe) 10 ml IVP PRN PRN PRN Reason: NEEDED PER PROVIDER ORDERS Sodium Chloride (Sodium Chloride Flush 0.9% 10 Ml Syringe) 10 ml IVP 0100,0900,1700 [facility] Last Admin: 12/20/20 23:47 Dose: 10 ml Documented by: Albuterol [Proventil Hfa] 1 puffs INH .FREQ 07/24/13 Baclofen 20 mg PO TID 07/24/13 Calcium Carbonate [Calcium] 0 mg PO DAILY 07/24/13 Cholecalciferol (Vitamin D3) [Vitamin D3] 1,000 unit PO DAILY 07/24/13 Folic Acid 1 mg PO DAILY 07/24/13 Hydroxyzine HCl 25 mg PO BID 07/24/13 Ipratropium/Albuterol Inhaler [Combivent Inhaler] 0 puffs INH .FREQ 07/24/13 Lovastatin [Mevacor] 40 mg PO HS 07/24/13 Multivitamin [Multivitamins] 1 each PO DAILY 07/24/13 [place]-3 Fatty Acids [Fish Oil] 0 mg PO DAILY 07/24/13 Sennosides [Senna] 0 mg PO DAILY 07/24/13 diphenhydrAMINE [Benadryl] 0 mg PO HS 07/24/13 B Vitamin 0 PO DAILY 08/21/13 Aspirin [Tracey Chewable Aspirin] 1 tab PO DAILY 05/27/16 Biotin 1 tab PO DAILY 05/27/16 Morphine ER 1 tab PO BID 05/27/16 lisinopriL [Lisinopril] 1 tab PO DAILY 05/27/16 oxyCODONE [Roxicodone] 10 mg PO Q6HR PRN 05/27/16 Objective - Vital Signs/Intake & Output Reviewed Vital Signs: Yes Vital Signs: Vital Signs x48h Temp Pulse Resp BP Pulse Ox 12/21/20 03:39 36.9 C 99 22 117/76 95 12/21/20 00:14 78 16 126/75 97 12/20/20 23:16 37.1 C 86 20 139/85 H 98 Intake & Output: Intake & Output 12/18/20 12/19/20 12/20/20 12/21/20 23:59 23:59 23:59 23:59 Intake Total 206.25 100 Balance 206.25 100 - Objective General Appearance: positive: Lethargic Eyes Bilateral: positive: PERRL ENT: positive: Dry mucous membranes Neck: positive: No JVD. negative: Stiff neck Respiratory: positive: No respiratory distress. negative: Wheezes, Rales, Rhonchi Cardiovascular: positive: Regular rate & rhythm, Systolic murmur. negative: Gallop/S4, Friction rub Abdomen: positive: Non-tender, No organomegaly, Nml bowel sounds, No distention Skin: positive: Warm, Dry, Pallor Extremities: positive: No pedal edema, Other (Contracture of right limbs due to her history of traumatic brain injury and residual deficits) Neurologic/Psychiatric: positive: Disoriented to time (But oriented to place and person.), Facial droop (Slight right facial droop), Other (Contracted extremities on the right due to her hemiplegia. No change in status.). negative: Motor nml (Right arm and right leg weakness as well as contracture) - Lab Results Fish Bones: 12/21/20 04:08 12/21/20 06:42 Other Labs: Lab Results x24hrs 12/21/20 12/20/20 12/20/20 Range/Units 04:08 23:50 21:36 WBC 14.1 H (4.8-10.8) x10^3/uL RBC 4.85 (4.20-5.40) 10^6/uL Hgb 14.4 (12.0-16.0) g/dL Hct 42.6 (37.0-47.0) % MCV 87.8 (81.0-99.0) fL MCH 29.7 (27.0-31.0) pg MCHC 33.8 (32.0-36.0) g/dL RDW 12.1 (12.0-15.0) % Plt Count 230 (130-450) 10^3/uL MPV 9.6 (7.9-10.8) fL Neut # (Auto) 10.2 H (1.5-6.6) 10^3/uL Lymph # (Auto) 2.5 (1.5-3.5) 10^3/uL [place] # (Auto) 1.2 H (0.0-1.0) 10^3/uL Eos # (Auto) 0.0 (0.0-0.7) 10^3/uL Baso # (Auto) 0.1 (0.0-0.1) 10^3/uL Absolute Nucleated RBC 0.00 x10^3/uL Nucleated RBC % 0.0 /100WBC Sodium 122 L 124 L (135-145) mmol/L Potassium 2.6 L 2.4 L* (3.5-5.0) mmol/L Chloride 69 L* 67 L* (101-111) mmol/L Carbon Dioxide 39 H* 40 H* (21-32) mmol/L Anion Gap 14.0 H 17.0 H (6-13) BUN 5 L 5 L (6-20) mg/dL Creatinine 0.7 0.6 (0.4-1.0) mg/dL Estimated GFR (MDRD) 85 L 101 (>89) Glucose 119 H 115 H (70-100) mg/dL Calcium 8.6 8.9 (8.5-10.3) mg/dL Magnesium 1.5 L (1.7-2.8) mg/dL Total Bilirubin 1.0 (0.2-1.0) mg/dL AST 34 (10-42) IU/L ALT 23 (10-60) IU/L Alkaline Phosphatase 68 (42-121) IU/L Total Protein 7.0 (6.7-8.2) g/dL Albumin 3.6 (3.2-5.5) g/dL Globulin 3.4 (2.1-4.2) g/dL Albumin/Globulin Ratio 1.1 (1.0-2.2) Nasal Adenovirus (PCR) Nasal B. parapertussis DNA (PCR) Nasal Coronavir 229E PCR Nasal Coronavir HKU1 PCR Nasal Coronavir NL63 PCR Nasal Coronavir OC43 PCR Nasal Enterovir/Rhinovir PCR Nasal Influenza B PCR Nasal Influenza A PCR Nasal Parainfluen 1 PCR Nasal Parainfluen 2 PCR Nasal Parainfluen 3 PCR Nasal Parainfluen 4 PCR Nasal RSV (PCR) Nasal B.pertussis DNA PCR Nasal C.pneumoniae (PCR) Lon Human Metapneumo PCR Nasal M.pneumoniae (PCR) Nasal SARS-CoV-2 (PCR) 12/20/20 12/20/20 Range/Units 20:36 20:34 WBC 13.6 H (4.8-10.8) x10^3/uL RBC 5.04 (4.20-5.40) 10^6/uL Hgb 14.9 (12.0-16.0) g/dL Hct 42.9 (37.0-47.0) % MCV 85.1 (81.0-99.0) fL MCH 29.6 (27.0-31.0) pg MCHC 34.7 (32.0-36.0) g/dL RDW 11.9 L (12.0-15.0) % Plt Count 280 (130-450) 10^3/uL MPV 9.3 (7.9-10.8) fL Neut # (Auto) 10.5 H (1.5-6.6) 10^3/uL Lymph # (Auto) 2.0 (1.5-3.5) 10^3/uL [place] # (Auto) 0.9 (0.0-1.0) 10^3/uL Eos # (Auto) 0.1 (0.0-0.7) 10^3/uL Baso # (Auto) 0.1 (0.0-0.1) 10^3/uL Absolute Nucleated RBC 0.00 x10^3/uL Nucleated RBC % 0.0 /100WBC Sodium (135-145) mmol/L Potassium (3.5-5.0) mmol/L Chloride (101-111) mmol/L Carbon Dioxide (21-32) mmol/L Anion Gap (6-13) BUN (6-20) mg/dL Creatinine (0.4-1.0) mg/dL Estimated GFR (MDRD) (>89) Glucose (70-100) mg/dL Calcium (8.5-10.3) mg/dL Magnesium (1.7-2.8) mg/dL Total Bilirubin (0.2-1.0) mg/dL AST (10-42) IU/L ALT (10-60) IU/L Alkaline Phosphatase (42-121) IU/L Total Protein (6.7-8.2) g/dL Albumin (3.2-5.5) g/dL Globulin (2.1-4.2) g/dL Albumin/Globulin Ratio (1.0-2.2) Nasal Adenovirus (PCR) NOT DETECTED Nasal B. parapertussis DNA (PCR) NOT DETECTED Nasal Coronavir 229E PCR NOT DETECTED Nasal Coronavir HKU1 PCR NOT DETECTED Nasal Coronavir NL63 PCR NOT DETECTED Nasal Coronavir OC43 PCR NOT DETECTED Nasal Enterovir/Rhinovir PCR NOT DETECTED Nasal Influenza B PCR NOT DETECTED Nasal Influenza A PCR NOT DETECTED Nasal Parainfluen 1 PCR NOT DETECTED Nasal Parainfluen 2 PCR NOT DETECTED Nasal Parainfluen 3 PCR NOT DETECTED Nasal Parainfluen 4 PCR NOT DETECTED Nasal RSV (PCR) NOT DETECTED Nasal B.pertussis DNA PCR NOT DETECTED Nasal C.pneumoniae (PCR) NOT DETECTED Lon Human Metapneumo PCR NOT DETECTED Nasal M.pneumoniae (PCR) NOT DETECTED Nasal SARS-CoV-2 (PCR) NOT DETECTED ABX Reporting Has patient been on IV antibiotics over the past 48 hours?: No Assessment/Plan - Problem List (1) Hyponatremia Impression: with diffuse electrolyte abnormality. Potentially caused by recently starting Lasix. In the ED, her sodium was 124, potassium 2.4, chloride 67, CO2 40. She was given 100 mL of 3% hypertonic saline and oral potassium supplementation. She is currently asymptomatic after suffering a seizure at home. She received 100 cc of hypertonic saline. Repeat labs showed sodium to be 122, potassium 2.6, chloride 69, carbon dioxide 39, anion gap 14, BUN 5. She received another 150 cc of 3% hypertonic saline. She has also received p.o. potassium. This morning's labs Sodium 130, potassium 3.0, chloride 80, carbon dioxide 39. So improved. Plan, continue to monitor. No further hypertonic saline. Restrict fluids 1 000cc a day. She is to continue get potassium 40 twice daily for total of 3 doses. Recheck potassium tomorrow. (2) New onset seizure present on admission. Conclusion/Plan: Possibly due to a combination of hyponatremia and a lowered seizure threshold after having a TBI in 2002. She has never had a seizure before today. She quit drinking 6 years ago. She has not had recurrence of her seizure since coming in on the evening of December 20.CT is without acute intracranial abnormality. Right-sided postsurgical changes of craniotomy. Right-sided mild cerebral volume loss. Mild chronic white matter disease. No new acute changes. Plan: Seizure pads on bed. Will treat electrolyte abnormality and continue to monitor. (3) Asthma stable. Conclusion/Plan: She uses Metered-dose inhaler 3-4 times throughout the day. No current exacerbation. Plan: She has an inhaler that she can use as needed. Qualifiers: Asthma severity: moderate Asthma persistence: persistent Asthma complication type: uncomplicated Qualified Code(s): J45.40 - Moderate persistent asthma, uncomplicated (4) COPD (chronic obstructive pulmonary disease) without exacerbation Conclusion/Plan: She smoked 2-3 ppd for 20 years. Quit 6 years ago. She's on 4L O2 NC at home. Her O2 sats at home are normally between 94-96%. Not in acute exacerbation. Plan: continue O2 via NC to maintain level above 94%. She has an inhaler to use as needed. Qualifiers: COPD type: COPD with acute exacerbation Qualified Code(s): J44.1 - Chronic obstructive pulmonary disease with (acute) exacerbation (5) Right calf pain Conclusion/Plan: She says she has had right calf pain since her last hospitalization. The calf isn't erythematous or swollen and is equal in size to the other calf. She has a history of DVT. Plan: Venous US and DVT prophylaxis with compression stockings.Venous Dopplers were not done overnight. She will get that this morning and we will review.
[2020-12-21] MEDS: guaiFENesin 600 MG TABLET PO SCH ×2 (08:35→21:01)
[2020-12-21] MEDS: NYSTATIN 500000 UNITS/5 ML UDC PO SCH ×4 (08:35→21:01)
[2020-12-21] MEDS: SODIUM CHLORIDE FLUSH 0.9% 10 ML SYRINGE IVP SCH ×2 (08:36→16:58)
--- NOTE | 2020-12-21 09:53 | XRAY Report ---
PROCEDURE: Chest 1 View X-Ray INDICATIONS: Hypoxia. Seizure. TECHNIQUE: One view of the chest was acquired. COMPARISON: Chest radiographs dated 10/05/2019 and 12/20/2019 FINDINGS: Surgical changes and devices: Stable surgical changes of the right breast.. Lungs and pleura: Stable elevation of the left hemidiaphragm. Left basilar opacity is again noted and similar to slightly worsened from prior exam. No new consolidation, pneumothorax, or large volume pl eural effusion. Mediastinum: Change appearance of the mediastinum. Bones and chest wall: Remote posttraumatic changes of the left clavicle with degenerative changes of the shoulders and spine. No acute osseous abnormality. IMPRESSION: Stable elevation of the left hemidiaphragm. Left basilar opacity is similar to slightly worsened from prior examination. Reviewed by: Julio Cesar Saavedra DO on 12/21/2020 8:51 AM [facility] Approved by: Julio Cesar Saavedra DO on 12/21/2020 8:51 AM [facility] Station ID: [id number]
[2020-12-21 10:38] LABS: BUN - BLOOD UREA NITROGEN < 5 mg/dL (6-20); CALCIUM 7.9 mg/dL (8.5-10.3); CARBON DIOXIDE - CO2 34 mmol/L (21-32); CHLORIDE 87 mmol/L (101-111); CREATININE 0.7 mg/dL (0.4-1.0); GLUCOSE 131 mg/dL (70-100)
--- NOTE | 2020-12-21 11:50 | PHARMACY PROGRESS NOTE ---
- Best Possible Medication History Admit Date and Time: 12/20/20 2144 Processed by: Pharmacy Medication History completed: Yes Patient Interview: Completed Secondary Source(s): Pharmacy records, Insurance records As the person ultimately responsible for medication therapy, providers are able to order a medication from an existing home medication list in [facility] via the "Reconcile Routine" prior to Confirmation of that medication by technical support manager. Such practice is discouraged except when the physician, in their clinical judgment, deems that a medical need exists for a medication without regard to previous use.
[2020-12-21] MEDS: SODIUM CHLORIDE 0.9% 1,000 ML IV SCH (12:39)
[2020-12-21 12:52] LABS: CALCIUM 8.2 mg/dL (8.5-10.3); CREATININE 0.7 mg/dL (0.4-1.0)
[2020-12-21] MEDS ORDERED: cefTRIAXone 2 GM in SODIUM CHLORIDE 0.9% MINIBAG 100 ML IV SCH (13:00)
--- NOTE | 2020-12-21 13:33 | Ultrasound Report ---
PROCEDURE: Duplex Ext Veins Right INDICATIONS: right leg pain and swelling p hospitalization TECHNIQUE: Real-time imaging, as well as color and pulse Doppler interrogation, were performed of the lower extr emity deep veins from the inguinal ligament to the popliteal fossa. COMPARISON: None. FINDINGS: The deep veins are normally compressible, and free of intraluminal thrombus. Color and pu lse Doppler demonstrate normal phasic intraluminal flow. There is normal augmentation response to di stal compression maneuver. IMPRESSION: No evidence of right lower extremity DVT. Reviewed by: Julio Cesar Saavedra DO on 12/21/2020 12:32 PM [facility] Approved by: Julio Cesar Saavedra DO on 12/21/2020 12:32 PM [facility] Station ID: [id number]
[2020-12-21] MEDS: cefTRIAXone 2 GM in SODIUM CHLORIDE 0.9% MINIBAG 100 ML IV SCH (14:07)
[2020-12-21] MEDS: AZITHROMYCIN INJ 500 MG in SODIUM CHLORIDE 0.9% 250 ML IV SCH (14:38)
[2020-12-21] MEDS: BACLOFEN 10 MG TABLET PO SCH ×2 (16:58→20:57)
[2020-12-21 18:33] LABS: BUN - BLOOD UREA NITROGEN < 5 mg/dL (6-20); CALCIUM 8.5 mg/dL (8.5-10.3); CARBON DIOXIDE - CO2 32 mmol/L (21-32); CHLORIDE 90 mmol/L (101-111); CREATININE 0.8 mg/dL (0.4-1.0); GLUCOSE 167 mg/dL (70-100)
[2020-12-21 19:37] LABS: BILIRUBIN,URINE NEGATIVE (NEGATIVE); GLUCOSE, URINE (UA) NEGATIVE (NEGATIVE); KETONES,URINE (UA) NEGATIVE (NEGATIVE); LEUKOCYTE ESTERASE, URINE TRACE (NEGATIVE); NITRITE,URINE NEGATIVE (NEGATIVE); OCCULT BLOOD,URINE NEGATIVE (NEGATIVE); PROTEIN,URINE NEGATIVE (NEGATIVE); UROBILINOGEN,URINE 0.2 (NORMAL) E.U./dL (NORMAL)
[2020-12-21 19:40] LABS: CLARITY,URINE HAZY (CLEAR)
[2020-12-21 19:54] LABS: BACTERIA,URINE Rare /HPF (None Seen); RBC,URINE 0-5 /HPF (0-5); SQUAMOUS EPITHELIAL CELL,UR NONE SEEN (<= Few)
[2020-12-21 19:55] LABS: YEAST,URINE PRESENT
[2020-12-21] MEDS: DEXTROSE 5% 1,000 ML IV SCH (20:56)
[2020-12-21] MEDS: ATORVASTATIN 40 MG TABLET PO SCH (20:57)
[2020-12-21 23:42] LABS: BUN - BLOOD UREA NITROGEN < 5 mg/dL (6-20); CALCIUM 8.5 mg/dL (8.5-10.3); CARBON DIOXIDE - CO2 32 mmol/L (21-32); CHLORIDE 91 mmol/L (101-111); CREATININE 0.6 mg/dL (0.4-1.0); GLUCOSE 137 mg/dL (70-100)
[2020-12-22] MEDS: SODIUM CHLORIDE FLUSH 0.9% 10 ML SYRINGE IVP SCH ×3 (00:01→17:22)
[2020-12-22 05:54] LABS: BASOPHILS # (AUTO) 0.1 10^3/uL (0.0-0.1); BASOPHILS % (AUTO) 0.6 %; EOSINOPHILS # (AUTO) 0.1 10^3/uL (0.0-0.7); EOSINOPHILS % (AUTO) 1.2 %; HGB - HEMOGLOBIN 11.4 g/dL (12.0-16.0); LYMPHOCYTES # (AUTO) 3.7 10^3/uL (1.5-3.5); LYMPHOCYTES % (AUTO) 34.1 %; MEAN CORPUSCULAR HEMOGLOBIN 29.5 pg (27.0-31.0); MEAN CORPUSCULAR HGB CONC 32.7 g/dL (32.0-36.0); MEAN CORPUSCULAR VOLUME 90.4 fL (81.0-99.0); MEAN PLATELET VOLUME 9.5 fL (7.9-10.8); MONOCYTES # (AUTO) 1.1 10^3/uL (0.0-1.0); MONOCYTES % (AUTO) 9.8 %; NEUTROPHILS # (AUTO) 5.8 10^3/uL (1.5-6.6); NEUTROPHILS % (AUTO) 53.9 %; PLT - PLATELET COUNT 232 10^3/uL (130-450); RED BLOOD COUNT 3.86 10^6/uL (4.20-5.40); RED CELL DISTRIBUTION WIDTH 12.9 % (12.0-15.0); WHITE BLOOD COUNT 10.7 x10^3/uL (4.8-10.8)
[2020-12-22 06:09] LABS: BUN - BLOOD UREA NITROGEN < 5 mg/dL (6-20); CALCIUM 8.4 mg/dL (8.5-10.3); CARBON DIOXIDE - CO2 31 mmol/L (21-32); CHLORIDE 94 mmol/L (101-111); CREATININE 0.5 mg/dL (0.4-1.0); GLUCOSE 111 mg/dL (70-100)
[2020-12-22] MEDS: oxyCODONE 5 MG TABLET PO PRN ×4 (06:41→23:58)
[2020-12-22] MEDS: DEXTROSE 5% 1,000 ML IV SCH (06:42)
[2020-12-22] MEDS: guaiFENesin 600 MG TABLET PO SCH ×2 (09:10→20:36)
[2020-12-22] MEDS: BACLOFEN 10 MG TABLET PO SCH ×4 (09:10→20:36)
[2020-12-22] MEDS: ASPIRIN CHEW 81 MG TABLET PO SCH (09:10)
[2020-12-22] MEDS: CHOLECALCIFEROL 25 MCG TABLET PO SCH (09:10)
[2020-12-22] MEDS: NYSTATIN CREAM 15 GM TUBE TOP SCH ×2 (09:11→20:37)
[2020-12-22] MEDS: cefTRIAXone 2 GM in SODIUM CHLORIDE 0.9% MINIBAG 100 ML IV SCH (09:11)
[2020-12-22] MEDS: NYSTATIN 500000 UNITS/5 ML UDC PO SCH ×4 (09:23→20:37)
[2020-12-22] MEDS: AZITHROMYCIN INJ 500 MG in SODIUM CHLORIDE 0.9% 250 ML IV SCH (10:06)
[2020-12-22 12:28] LABS: BUN - BLOOD UREA NITROGEN < 5 mg/dL (6-20); CALCIUM 8.4 mg/dL (8.5-10.3); CARBON DIOXIDE - CO2 30 mmol/L (21-32); CHLORIDE 93 mmol/L (101-111); CREATININE 0.5 mg/dL (0.4-1.0); GLUCOSE 90 mg/dL (70-100)
--- NOTE | 2020-12-22 13:39 | PROVIDER PROGRESS NOTE ---
Subjective - Prog Note Date Prog Note Date: 12/22/20 - Subjective Subjective: She feels well. Denies any shortness of breath or cough. No more episodes of seizures. She would like to go home as soon as possible. Current Medications - Current Medications Current Medications: Active Medications Acetaminophen (Acetaminophen 325 Mg Tablet) 650 mg PO Q4HR PRN PRN Reason: Pain 1 to 4 Aspirin (Aspirin Chew 81 Mg Tablet) 81 mg PO DAILY [facility] Last Admin: 12/22/20 09:10 Dose: 81 mg Documented by: Atorvastatin Calcium (Atorvastatin 40 Mg Tablet) 40 mg PO QPM [facility] Last Admin: 12/21/20 20:57 Dose: 40 mg Documented by: Baclofen (Baclofen 10 Mg Tablet) 20 mg PO QID [facility] Last Admin: 12/22/20 09:10 Dose: 20 mg Documented by: Cholecalciferol (Cholecalciferol 25 Mcg Tablet) 25 mcg PO DAILY [facility] Last Admin: 12/22/20 09:10 Dose: 25 mcg Documented by: Guaifenesin (Guaifenesin 600 Mg Tablet) 600 mg PO BID [facility] Last Admin: 12/22/20 09:10 Dose: 600 mg Documented by: Azithromycin 500 mg/ Sodium (Chloride) 250 mls @ 250 mls/hr IV DAILY [facility] Stop: 12/23/20 09:59 Last Infusion: 12/22/20 11:24 Dose: Infused Documented by: Ceftriaxone Sodium 2 gm/ (Sodium Chloride) 100 mls @ 200 mls/hr IV DAILY [facility] Stop: 12/25/20 09:29 Last Infusion: 12/22/20 10:11 Dose: Infused Documented by: Sodium Chloride (Normal Saline 0.9%) 1,000 mls @ 100 mls/hr IV .Q10H [facility] Mineral Oil (Min Oil/Dimethicon/Coconut Oil 92 Gm Tube) 1 applic TOP PRN PRN PRN Reason: Skin Care Last Admin: 12/21/20 02:01 Dose: 1 applic Documented by: Nystatin (Nystatin Cream 15 Gm Tube) 1 applic TOP BID [facility] Last Admin: 12/22/20 09:11 Dose: 1 appful Documented by: Nystatin (Nystatin 188291 Units/5 Ml Udc) 5 ml PO QID [facility] Last Admin: 12/22/20 09:23 Dose: 5 ml Documented by: Ondansetron HCl (Ondansetron Odt 4 Mg Tablet) 4 mg TL Q6HR PRN PRN Reason: Nausea / Vomiting Oxycodone HCl (Oxycodone 5 Mg Tablet) 10 mg PO Q4HR PRN PRN Reason: PAIN Last Admin: 12/22/20 06:41 Dose: 10 mg Documented by: Sodium Chloride (Sodium Chloride Flush 0.9% 10 Ml Syringe) 10 ml IVP PRN PRN PRN Reason: NEEDED PER PROVIDER ORDERS Sodium Chloride (Sodium Chloride Flush 0.9% 10 Ml Syringe) 10 ml IVP 0100,0900,1700 N[facility] Last Admin: 12/22/20 09:11 Dose: 10 ml Documented by: Albuterol [Proventil Hfa] 2 puffs INH BID 07/24/13 Baclofen 20 mg PO QID 07/24/13 Cholecalciferol (Vitamin D3) [Vitamin D3] 1,000 unit PO DAILY 07/24/13 Folic Acid 1 mg PO DAILY 07/24/13 Ipratropium/Albuterol Inhaler [Combivent Inhaler] 1 puffs INH BID 07/24/13 Multivitamin [Multivitamins] 1 each PO DAILY 07/24/13 Sennosides [Senna] 51.6 mg PO DAILY 07/24/13 Aspirin [Tracey Chewable Aspirin] 81 mg PO DAILY 05/27/16 Morphine ER 60 mg PO BID 05/27/16 Atorvastatin Calcium 40 mg PO QPM 12/21/20 Diazepam [Valium] 5 - 10 mg PO QPM PRN 12/21/20 [place]-3 Fatty Acids/Fish Oil [[place]-3 Fish Oil 1,000 mg Sfgl] 1,000 mg PO DAILY 12/21/20 hydrOXYzine HCL [Hydroxyzine HCl] 25 mg PO BID 12/21/20 oxyCODONE [Roxicodone] 15 mg PO Q6H PRN 12/21/20 Objective - Vital Signs/Intake & Output Reviewed Vital Signs: Yes Vital Signs: Vital Signs x48h Temp Pulse Resp BP Pulse Ox 12/22/20 11:29 36.8 C 79 18 97/65 95 12/22/20 09:00 36.8 C 75 16 102/62 93 Intake & Output: Intake & Output 12/19/20 12/20/20 12/21/20 12/22/20 23:59 23:59 23:59 23:59 Intake Total 206.25 8198.333 1603.333 Output Total 2075 375 Balance 206.25 013.082 3647.333 - Objective General Appearance: positive: No acute distress, Alert, Mild distress Eyes Bilateral: positive: Conjunctivae nml ENT: positive: ENT inspection nml Neck: positive: Other (Neck is contracted to the left.) Respiratory: positive: No respiratory distress. negative: Wheezes, Rales Cardiovascular: positive: Regular rate & rhythm. negative: Tachycardia Abdomen: positive: Non-tender, No distention. negative: Tenderness Skin: positive: Warm, Dry Neurologic/Psychiatric: positive: Other (She has minimal strength in her right upper and lower extremities which is her baseline.) - Lab Results Fish Bones: 12/22/20 05:05 12/22/20 12:09 Other Labs: Lab Results x24hrs 12/22/20 12/22/20 12/22/20 Range/Units 12:09 05:05 05:05 WBC 10.7 (4.8-10.8) x10^3/uL RBC 3.86 L (4.20-5.40) 10^6/uL Hgb 11.4 L (12.0-16.0) g/dL Hct 34.9 L (37.0-47.0) % MCV 90.4 (81.0-99.0) fL MCH 29.5 (27.0-31.0) pg MCHC 32.7 (32.0-36.0) g/dL RDW 12.9 (12.0-15.0) % Plt Count 232 (130-450) 10^3/uL MPV 9.5 (7.9-10.8) fL Neut # (Auto) 5.8 (1.5-6.6) 10^3/uL Lymph # (Auto) 3.7 H (1.5-3.5) 10^3/uL [place] # (Auto) 1.1 H (0.0-1.0) 10^3/uL Eos # (Auto) 0.1 (0.0-0.7) 10^3/uL Baso # (Auto) 0.1 (0.0-0.1) 10^3/uL Absolute Nucleated RBC 0.00 x10^3/uL Nucleated RBC % 0.0 /100WBC Sodium 129 L 132 L (135-145) mmol/L Potassium 4.0 3.8 (3.5-5.0) mmol/L Chloride 93 L 94 L (101-111) mmol/L Carbon Dioxide 30 31 (21-32) mmol/L Anion Gap 6.0 7.0 (6-13) BUN < 5 L < 5 L (6-20) mg/dL Creatinine 0.5 0.5 (0.4-1.0) mg/dL Estimated GFR (MDRD) 125 125 (>89) Glucose 90 111 H (70-100) mg/dL Calcium 8.4 L 8.4 L (8.5-10.3) mg/dL Urine Color Urine Clarity (CLEAR) Urine pH (5.0-7.5) PH Ur Specific [place] (1.002-1.030) Urine Protein (NEGATIVE) mg/dL Urine Glucose (UA) (NEGATIVE) mg/dL Urine Ketones (NEGATIVE) mg/dL Urine Occult Blood (NEGATIVE) Urine Nitrite (NEGATIVE) Urine Bilirubin (NEGATIVE) Urine Urobilinogen (NORMAL) E.U./dL Ur Leukocyte Esterase (NEGATIVE) Urine RBC (0-5) /HPF Urine WBC (0-5) /HPF Ur Squamous Epith Cells (<= Few) Urine Bacteria (None Seen) /HPF Urine Yeast 12/21/20 12/21/20 12/21/20 Range/Units 23:15 17:58 14:20 WBC (4.8-10.8) x10^3/uL RBC (4.20-5.40) 10^6/uL Hgb (12.0-16.0) g/dL Hct (37.0-47.0) % MCV (81.0-99.0) fL MCH (27.0-31.0) pg MCHC (32.0-36.0) g/dL RDW (12.0-15.0) % Plt Count (130-450) 10^3/uL MPV (7.9-10.8) fL Neut # (Auto) (1.5-6.6) 10^3/uL Lymph # (Auto) (1.5-3.5) 10^3/uL [place] # (Auto) (0.0-1.0) 10^3/uL Eos # (Auto) (0.0-0.7) 10^3/uL Baso # (Auto) (0.0-0.1) 10^3/uL Absolute Nucleated RBC x10^3/uL Nucleated RBC % /100WBC Sodium 133 L 136 (135-145) mmol/L Potassium 3.8 3.5 (3.5-5.0) mmol/L Chloride 91 L 90 L (101-111) mmol/L Carbon Dioxide 32 32 (21-32) mmol/L Anion Gap 10.0 14.0 H (6-13) BUN < 5 L < 5 L (6-20) mg/dL Creatinine 0.6 0.8 (0.4-1.0) mg/dL Estimated GFR (MDRD) 101 72 L (>89) Glucose 137 H 167 H (70-100) mg/dL Calcium 8.5 8.5 (8.5-10.3) mg/dL Urine Color YELLOW Urine Clarity HAZY (CLEAR) Urine pH 7.0 (5.0-7.5) PH Ur Specific [place] 1.010 (1.002-1.030) Urine Protein NEGATIVE (NEGATIVE) mg/dL Urine Glucose (UA) NEGATIVE (NEGATIVE) mg/dL Urine Ketones NEGATIVE (NEGATIVE) mg/dL Urine Occult Blood NEGATIVE (NEGATIVE) Urine Nitrite NEGATIVE (NEGATIVE) Urine Bilirubin NEGATIVE (NEGATIVE) Urine Urobilinogen 0.2 (NORMAL) (NORMAL) E.U./dL Ur Leukocyte Esterase TRACE H (NEGATIVE) Urine RBC 0-5 (0-5) /HPF Urine WBC 0-3 (0-5) /HPF Ur Squamous Epith Cells NONE SEEN (<= Few) Urine Bacteria Rare (None Seen) /HPF Urine Yeast PRESENT ABX Reporting Has patient been on IV antibiotics over the past 48 hours?: Yes Assessment/Plan - Problem List (1) Hyponatremia Impression: This is hypovolemic hyponatremia. She responded well to IV fluids. She initially given hypertonic saline given the seizure. The plan was to discharge her home today but after discontinuing fluids, a repeat BMP was checked at around noon and her sodium began to decrease again and was at 129. Therefore we will keep her hospitalized and restart her on IV fluids. If her sodium is stable tomorrow I suspect she should be able to be discharged home. (2) Community acquired pneumonia Impression: He was recently treated for community-acquired pneumonia [place]. She did not take the antibiotics on discharge. X-ray on admission shows a worsening left-sided infiltrate and she does have a mild leukocytosis. We have treated her empirically azithromycin and ceftriaxone. We will switch her to oral Ceftin tomorrow and she will complete the 3 days of azithromycin tomorrow. (3) New onset seizure Impression: This was secondary to the hyponatremia. She was treated with hypertonic saline. She has not had any fevers or seizures since correction of her electrolytes. (4) History of stroke with residual deficit Impression: Stable. We will continue her aspirin and statin. I have asked PT to evaluate the patient as reports she has not been very ambulatory at home since discharge from [place] earlier this month. (5) Hypokalemia Impression: This has resolved. This is likely secondary to the use of diuretics and her metabolic alkalosis. (6) Metabolic alkalosis Impression: This has resolved.
[2020-12-22] MEDS: SODIUM CHLORIDE 0.9% 1,000 ML IV SCH ×2 (14:09→23:55)
[2020-12-22] MEDS ORDERED: diazePAM 5 MG TABLET PO PRN (18:50)
[2020-12-22 20:34] LABS: CALCIUM 8.5 mg/dL (8.5-10.3); CREATININE 0.6 mg/dL (0.4-1.0)
[2020-12-22] MEDS: ATORVASTATIN 40 MG TABLET PO SCH (20:36)
[2020-12-23] MEDS: SODIUM CHLORIDE FLUSH 0.9% 10 ML SYRINGE IVP SCH ×2 (00:55→09:09)
[2020-12-23] MEDS: oxyCODONE 5 MG TABLET PO PRN ×3 (04:03→13:22)
[2020-12-23 05:45] LABS: BASOPHILS # (AUTO) 0.1 10^3/uL (0.0-0.1); BASOPHILS % (AUTO) 0.8 %; EOSINOPHILS # (AUTO) 0.2 10^3/uL (0.0-0.7); EOSINOPHILS % (AUTO) 2.4 %; HGB - HEMOGLOBIN 11.4 g/dL (12.0-16.0); LYMPHOCYTES # (AUTO) 3.2 10^3/uL (1.5-3.5); LYMPHOCYTES % (AUTO) 36.4 %; MEAN CORPUSCULAR HEMOGLOBIN 29.5 pg (27.0-31.0); MEAN CORPUSCULAR HGB CONC 32.7 g/dL (32.0-36.0); MEAN CORPUSCULAR VOLUME 90.2 fL (81.0-99.0); MEAN PLATELET VOLUME 9.4 fL (7.9-10.8); MONOCYTES # (AUTO) 0.8 10^3/uL (0.0-1.0); MONOCYTES % (AUTO) 9.3 %; NEUTROPHILS # (AUTO) 4.5 10^3/uL (1.5-6.6); NEUTROPHILS % (AUTO) 50.9 %; PLT - PLATELET COUNT 232 10^3/uL (130-450); RED BLOOD COUNT 3.87 10^6/uL (4.20-5.40); WHITE BLOOD COUNT 8.9 x10^3/uL (4.8-10.8)
[2020-12-23 06:02] LABS: BUN - BLOOD UREA NITROGEN < 5 mg/dL (6-20); CALCIUM 8.3 mg/dL (8.5-10.3); CARBON DIOXIDE - CO2 26 mmol/L (21-32); CHLORIDE 99 mmol/L (101-111); CREATININE 0.6 mg/dL (0.4-1.0); GLUCOSE 91 mg/dL (70-100)
[2020-12-23] MEDS: BACLOFEN 10 MG TABLET PO SCH ×2 (08:59→13:18)
[2020-12-23] MEDS: CHOLECALCIFEROL 25 MCG TABLET PO SCH (08:59)
[2020-12-23] MEDS: guaiFENesin 600 MG TABLET PO SCH (08:59)
[2020-12-23] MEDS: ASPIRIN CHEW 81 MG TABLET PO SCH (08:59)
[2020-12-23] MEDS: AZITHROMYCIN INJ 500 MG in SODIUM CHLORIDE 0.9% 250 ML IV SCH (09:00)
[2020-12-23] MEDS: NYSTATIN 500000 UNITS/5 ML UDC PO SCH ×2 (09:00→13:18)
[2020-12-23] MEDS: SODIUM CHLORIDE 0.9% 1,000 ML IV SCH (09:09)
[2020-12-23] MEDS: NYSTATIN CREAM 15 GM TUBE TOP SCH (10:23)
--- NOTE | 2020-12-23 12:53 | Discharge Plan ---
Discharge Plan Problem Reviewed?: Yes Disposition: Home Health Service Condition: Stable Prescriptions: cefUROXime axetiL [Ceftin] 500 mg PO BID #20 tablet Diet: Regular Activity Restrictions: Activity as Tolerated Shower Restrictions: No (fall precaution) Instruction Topics: Cefuroxime tablets, Epilepsy Self Care, Epilepsy Safety During Seizure, Pneumonia, Hyponatremia Dc Health Concerns: pneumonia, dehydration/hyponatremia, seizure, weakness Plan of Treatment: you were found to have pneumonia, your Covid 19 was negative, you are prescribed antibiotic to finish the treatment course. Your sodium is close to normal, you has no seizure in the hospital. your lower sodium is likely caused for your seizure, you may keep hydration and regular diet with regular sodium intake, followup with your PCP for lab monitor and neurologist as out-pt. you may resume your home health care as the schedule Care Goals: stabilization and improvement of your medical conditions Assessment: discussed the care plan with you, answered your questions, you understood, and you really want to be d/c to home today. Additional Instructions or Follow Up instructions: You may followup with your PCP on one week, have lab test BMP monitor your sodium level, followup with neurologist as out-pt. Should your symptoms return or worsen, you may present ER or call 911 for help. Follow-Up Care: Home Health - PT, Home Health - OT No Smoking: If you smoke, Please STOP! Call for help. Follow-up with: Richard Grullon MD [Primary Care Provider] -
[2020-12-23 13:04] VITALS: BP 125/70
--- NOTE | 2020-12-23 13:11 | DISCHARGE SUMMARY ---
Discharge Summary Admit Date: 12/20/20 Discharge Date: 12/23/20 Discharging Provider: Darci Bell Primary Care Provider: Dr. Richard Grullon Condition at Discharge: Stable Discharge Disposition: Home Health Service Discharge Facility Name: home - DIAGNOSES Discharge Diagnoses with Status of Each Condition: (1) Hyponatremia stable/close to normal arrange. Patient has sodium 132 today. She had 133 sodium as her baseline. pt may keep hydration and regular diet with regular sodium intake, followup with your PCP for lab monitor (2) Community acquired pneumonia stable/improved. Patient had 95% O2 sats on 2 L oxygen. Patient usually take 4 L oxygen at home as her baseline. Patient's WBC become normal Arrange. Patient has no respiratory distress, patient is prescribed antibiotics for finishing of treatment course (3) New onset seizure Resolved. pt has no seizure at hospital after she was treated in the hospital. This was likely secondary to severe hyponatremia, hypokalemia, hypochloremia electrolyte Disturbance. Advised patient may follow-up with neurologist as outpatient, pt has hx of TBI and craniotomy. 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 Stable. Home health PT and OT was arranged for patient (5) Hypokalemia This has resolved. (6) Metabolic alkalosis resolved. 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 - HPI History of Present Illness: This is a 65 y/o F w/ a history of TBI and craniotomy in 2002 with chronic right-sided deficits who presented to the ED via EMS after having witnessed 1 minute tonic-clonic seizure. She was postictal when the paramedics brought her in. The only memory she has of the regarding the event is being unable to get out of bed afterward. She has never had a seizure before and reports feeling better. She was hospitalized in [place] at the end of October for a pneumonia. She was discharged New Year's Day and started on Lasix and azithromycin (she says she only started taking the azithromycin today because "it was in my closet and I forgot about it"). She had outpatient labs done today which were notable for a sodium of 122 (it looks like her baseline sodium is pretty much normal), potassium of 2.4, chloride of 65, and a CO2 of 40. In the ED, her sodium was 124, potassium 2.4, chloride 67, CO2 40. She was given 100 mL of 3% hypertonic saline and oral potassium supplementation. She is being admitted for her electrolyte abnormalities in the context of new onset seizure. - HOSPITAL COURSE Hospital Course: Patient was admitted for evaluation and treatment of new onset seizure. Patient has a history of TBI and craniotomy. Patient was found sodium of 122, potassium of 2.4, chloride of 65, and a CO2 of 40. after Patient electrolytes was corrected, patient has no seizure in hospital. Patient's new onset of seizure is likely secondary to patient severe electrolytes disturbance, And the patient is likely to have low threshold seizures, and pt has hx of TBI and Craniotomy. Patient was advised to follow-up with neurologist as out- patient. Patient was arranged for home health of PT and OT. Patient was really wanted to discharge home today, pt declined to be d/c to SNF. Patient was discharged as hemodynamic condition - MEDICATIONS Home Medications: Ambulatory Orders Medication Instructions Recorded Confirmed Albuterol [Proventil Hfa] 2 puffs INH BID 07/24/13 12/21/20 Baclofen 20 mg PO QID 07/24/13 12/21/20 Cholecalciferol (Vitamin D3) 1,000 unit PO DAILY 07/24/13 12/21/20 [Vitamin D3] Folic Acid 1 mg PO DAILY 07/24/13 12/21/20 Ipratropium/Albuterol Inhaler 1 puffs INH BID 07/24/13 12/21/20 [Combivent Inhaler] Multivitamin [Multivitamins] 1 each PO DAILY 07/24/13 12/21/20 Sennosides [Senna] 51.6 mg PO DAILY 07/24/13 12/21/20 Aspirin [Tracey Chewable Aspirin] 81 mg PO DAILY 05/27/16 12/21/20 Morphine ER 60 mg PO BID 05/27/16 12/21/20 Atorvastatin Calcium 40 mg PO QPM 12/21/20 12/21/20 Diazepam [Valium] 5 - 10 mg PO QPM PRN 12/21/20 12/21/20 [place]-3 Fatty Acids/Fish Oil 1,000 mg PO DAILY 12/21/20 12/21/20 [[place]-3 Fish Oil 1,000 mg Sfgl] hydrOXYzine HCL [Hydroxyzine HCl] 25 mg PO BID 12/21/20 12/21/20 oxyCODONE [Roxicodone] 15 mg PO Q6H PRN 12/21/20 12/21/20 cefUROXime axetiL [Ceftin] 500 mg PO BID #20 tablet 12/23/20 - PHYSICAL EXAM AT DISCHARGE General Appearance: positive: No acute distress, Alert. negative: Lethargic Eyes Bilateral: positive: Normal inspection, PERRL, No lid inflammation ENT: positive: ENT inspection nml, No signs of dehydration. negative: Purulent nasal drainage Neck: positive: Nml inspection, Trachea midline. negative: Thyromegaly, Tracheal deviation Respiratory: positive: Chest non-tender, No respiratory distress, Breath sounds nml. negative: Wheezes, Rales Cardiovascular: positive: Regular rate & rhythm, No murmur. negative: Tachycardia, Bradycardia, Systolic murmur, Diastolic murmur Peripheral Pulses: positive: 2+ Abdomen: positive: Non-tender, Nml bowel sounds, No distention. negative: Tenderness, Guarding, Rebound Back: positive: Nml inspection Skin: positive: Color nml, Warm, Dry. negative: Cyanosis, Diaphoresis, Pallor Extremities: positive: Non-tender, Nml appearance. negative: Calf tenderness Neurologic/Psychiatric: positive: Oriented x3, Sensation nml, Mood/affect nml. negative: Weakness, Sensory loss, Facial droop, Slurred/abnml speech, Depressed mood/affect - LABS Result Diagrams: 12/23/20 05:13 12/23/20 05:13 - FOLLOW UP Follow Up: you were found to have pneumonia, your Covid 19 was negative, you are prescribed antibiotic to finish the treatment course. Your sodium is close to normal, you has no seizure in the hospital. your seizure is likely caused by your Severe electrolytes disturbances Including hyponatremia and hypokalemia, you may keep hydration and regular diet with regular sodium intake, followup with your PCP for lab monitor and neurologist as out-pt. you may resume your home health care as the schedule You may followup with your PCP on one week, have lab test BMP monitor your sodi um level, followup with neurologist as out-pt. Should your symptoms return or worsen, you may present ER or call 911 for help. - TIME SPENT Time Spent in Discharge (Minutes): 30
== END 2020-12-23 14:30 | disposition home health service (06) | DRG 100 ==
LOC: EDBD → EDUNIT# → ED 19:58 → MS2 21:44
PROVIDERS: ADMIT Specialist; ATTEND Internal Medicine Hematology & Oncology
DX: R56.9 Unspecified convulsions (principal); J18.9 Pneumonia, unspecified organism; E87.1 Hypo-osmolality and hyponatremia; J44.0 Chronic obstructive pulmonary disease with (acute) lower respiratory infection; E87.3 Alkalosis; E87.6 Hypokalemia; E87.8 Other disorders of electrolyte and fluid balance, not elsewhere classified; S06.9X9S Unspecified intracranial injury with loss of consciousness of unspecified duration, sequela; R29.818 Other symptoms and signs involving the nervous system; E78.00 Pure hypercholesterolemia, unspecified; R35.0 Frequency of micturition; F41.9 Anxiety disorder, unspecified; G89.29 Other chronic pain; M54.9 Dorsalgia, unspecified; M79.661 Pain in right lower leg; T36.3X6A Underdosing of macrolides, initial encounter; Y92.009 Unspecified place in unspecified non-institutional (private) residence as the place of occurrence of the external cause; Z20.822 Contact with and (suspected) exposure to COVID-19; Z99.81 Dependence on supplemental oxygen; Z79.51 Long term (current) use of inhaled steroids; Z79.82 Long term (current) use of aspirin; Z79.891 Long term (current) use of opiate analgesic; Z79.899 Other long term (current) drug therapy; Z86.718 Personal history of other venous thrombosis and embolism; Z87.891 Personal history of nicotine dependence
CPT/HCPCS: 0202U; 36415; 70450; 71045; 71046; 80048; 80053; 81001; 83735; 84300; 85025; 93005; 93971; 96365; 97162; 99285; A6250; A9270; 87040

== ENCOUNTER 2021-01-05 18:51 | Outpatient (CLI) | payer BC | END 2021-01-05 18:52 | disposition critical access hospital (66) | LOC: EMS 18:51 | PROVIDERS: ATTEND Emergency Medicine | DX: R46.4 Slowness and poor responsiveness (principal); R53.1 Weakness; R06.00 Dyspnea, unspecified | CPT/HCPCS: A0425; A0429 ==

== ENCOUNTER 2021-01-05 19:30 | Inpatient (IN) | payer BC ==
[2021-01-05] MEDS ORDERED: SODIUM CHLORIDE 0.9% 1,000 ML IV STA ×2 (19:35→21:18)
[2021-01-05 19:58] LABS: BASOPHILS # (AUTO) 0.1 10^3/uL (0.0-0.1); BASOPHILS % (AUTO) 0.6 %; EOSINOPHILS % (AUTO) 0.2 %; HGB - HEMOGLOBIN 11.9 g/dL (12.0-16.0); LYMPHOCYTES # (AUTO) 1.5 10^3/uL (1.5-3.5); MEAN CORPUSCULAR HEMOGLOBIN 29.8 pg (27.0-31.0); MEAN CORPUSCULAR HGB CONC 32.1 g/dL (32.0-36.0); MEAN PLATELET VOLUME 9.1 fL (7.9-10.8); MONOCYTES # (AUTO) 1.1 10^3/uL (0.0-1.0); MONOCYTES % (AUTO) 10.2 %; NEUTROPHILS # (AUTO) 7.9 10^3/uL (1.5-6.6); NEUTROPHILS % (AUTO) 74.7 %; PLT - PLATELET COUNT 357 10^3/uL (130-450); RED BLOOD COUNT 3.99 10^6/uL (4.20-5.40); RED CELL DISTRIBUTION WIDTH 13.5 % (12.0-15.0); WHITE BLOOD COUNT 10.5 x10^3/uL (4.8-10.8)
[2021-01-05 20:09] LABS: ALBUMIN 2.9 g/dL (3.2-5.5); ALBUMIN/GLOBULIN RATIO 0.7 (1.0-2.2); ALKALINE PHOSPHATASE 75 IU/L (42-121); ALT ALANINE AMINOTRANSFERASE 30 IU/L (10-60); AST ASPARTATE AMINOTRANSFERASE 29 IU/L (10-42); BILIRUBIN,TOTAL 0.5 mg/dL (0.2-1.0); BUN - BLOOD UREA NITROGEN < 5 mg/dL (6-20); CALCIUM 8.8 mg/dL (8.5-10.3); CARBON DIOXIDE - CO2 31 mmol/L (21-32); CHLORIDE 92 mmol/L (101-111); CREATININE 0.6 mg/dL (0.4-1.0); GLUCOSE 159 mg/dL (70-100); MAGNESIUM 1.7 mg/dL (1.7-2.8); PHOSPHORUS 3.5 mg/dL (2.5-4.6); TOTAL PROTEIN 6.8 g/dL (6.7-8.2)
[2021-01-05] MEDS ORDERED: ALBUTEROL NEB 2.5 MG/3 ML INH STA (22:17)
[2021-01-05 22:24] LABS: BILIRUBIN,URINE NEGATIVE (NEGATIVE); GLUCOSE, URINE (UA) NEGATIVE (NEGATIVE); KETONES,URINE (UA) NEGATIVE (NEGATIVE); LEUKOCYTE ESTERASE, URINE NEGATIVE (NEGATIVE); NITRITE,URINE NEGATIVE (NEGATIVE); OCCULT BLOOD,URINE NEGATIVE (NEGATIVE); PROTEIN,URINE NEGATIVE (NEGATIVE); UROBILINOGEN,URINE 0.2 (NORMAL) E.U./dL (NORMAL)
[2021-01-05 22:25] LABS: CLARITY,URINE CLEAR (CLEAR)
[2021-01-05 23:05] LABS: C. PNEUMONIAE- RESP PCR PANEL NOT DETECTED
[2021-01-06] MEDS ORDERED: SODIUM CHLORIDE 0.9% 500 ML IV STA (00:29)
[2021-01-06] MEDS ORDERED: AZITHROMYCIN INJ 500 MG in SODIUM CHLORIDE 0.9% 250 ML IV STA (00:33)
[2021-01-06] MEDS ORDERED: cefTRIAXone 1 GM VIAL IVP STA (00:33)
--- NOTE | 2021-01-06 00:36 | ED Physician Documentation ---
PD HPI ALTERED MENTAL STATUS - Stated complaint Stated Complaint: WEAKNESS - Chief complaint Chief Complaint: General - History obtained from History obtained from: Patient, EMS (EMS called for reported weakness and confusion. Patient told EMS she was just "unable to pee". Recent hospitalization for AMS with low sodium couple weeks ago. Was at [facility] October for TIA, reportedly. No reported change in med/doses.) - History of Present Illness Timing - onset: Today Timing - duration: Days Timing - details: Gradual onset, Still present Quality / character: Confused, Other (general weakness (in addition to her right weakness from prior TBI).) Associated symptoms: Dyspnea, Urinary sx (difficulty urinating, per patient.). No: Fever, Headache, NVD Contributing factors: No: New medication, Recent med change Basline status: Home. No: assisted facility Similar symptoms before: Diagnosis (recent admission for similar due to hyponatremia.) Recently seen: Emergency Dept, Admitted (2 weeks ago) Review of Systems Unable to obtain: Confused (somewhat sluggish with answers and some repetitiveness, but is awake/easily rousable. She asks me "did I just wake up or did you wake me up?" She says she does not want to go to [place], wants to be in "[place]".) Constitutional: denies: Fever Cardiac: denies: Chest pain / pressure Respiratory: reports: Dyspnea. denies: Cough GI: denies: Abdominal Pain, Vomiting, Diarrhea Musculoskeletal: denies: Neck pain, Back pain Neurologic: reports: Generalized weakness. denies: Near syncope, Headache PD PAST MEDICAL HISTORY - Past Medical History Cardiovascular: High cholesterol, Deep vein thrombosis Respiratory: Asthma, COPD Neuro: Other GI: Colon polyps EXCEPTIONAL STUDENT EDUCATION TEACHER: None : Frequency Psych: Anxiety Musculoskeletal: Chronic back pain, Other - Past Surgical History General: Colonoscopy /EXCEPTIONAL STUDENT EDUCATION TEACHER: Dilation and currettage Neuro: Craniotomy - Present Medications Home Medications: Ambulatory Orders Medication Instructions Recorded Confirmed Albuterol [Proventil Hfa] 2 puffs INH BID 07/24/13 01/05/21 Baclofen 20 mg PO QID 07/24/13 01/05/21 Folic Acid 1 mg PO DAILY 07/24/13 01/05/21 Ipratropium/Albuterol Inhaler 1 puffs INH BID 07/24/13 01/05/21 [Combivent Inhaler] Multivitamin [Multivitamins] 1 each PO DAILY 07/24/13 01/05/21 Aspirin [Tracey Chewable Aspirin] 81 mg PO DAILY 05/27/16 01/05/21 Morphine ER 60 mg PO BID 05/27/16 01/05/21 Atorvastatin Calcium 40 mg PO QPM 12/21/20 01/05/21 [place]-3 Fatty Acids/Fish Oil 1,000 mg PO DAILY 12/21/20 01/05/21 [[place]-3 Fish Oil 1,000 mg Sfgl] hydrOXYzine HCL [Hydroxyzine HCl] 25 mg PO BID 12/21/20 01/05/21 - Allergies Allergies/Adverse Reactions: Allergies Allergy/AdvReac Type Severity Reaction Status Date / Time No Known Drug Allergies Allergy Verified 01/05/21 19:48 - Social History Does the pt smoke?: No Smoking Status: Former smoker Does the pt drink ETOH?: No Does the pt have substance abuse?: No - Immunizations Immunizations are current?: No Immunizations: TDAP >10years/unknown - POLST POLST Status: DNR PD ED PE NORMAL - Vitals Vital signs reviewed: Yes - General General: No acute distress, Well developed/nourished. No: Alert and oriented X 3 (Sleeping but rouses to just verbal and is then interactive. Somewhat re petitive in answers, but still clear. ) - HEENT HEENT: Atraumatic, Pharynx benign - Neck Neck: Supple, no meningeal sign, No adenopathy - Cardiac Cardiac: No murmur. No: RRR (tachycardic but regular) - Respiratory Respiratory: No: Clear bilaterally (some congested sounds with exp wheezing noted right upper lung field. No fine crackles heard. No accessory muscle use. ) - Abdomen Abdomen: Soft, Non tender - Female Female : Deferred - Rectal Rectal: Deferred - Back Back: No CVA TTP - Derm Derm: Normal color - Extremities Extremities: Normal ROM s pain, No edema, No calf tenderness / cord - Neuro Neuro: Normal speech, Other (weakness of right arm and leg, baseline per prior records. ). No: Alert and oriented X 3 (oriented to person and place, not sure of time. Sleeping initially but rouses easily.) Eye Opening: To Voice Motor: Obeys Commands Verbal: Confused GCS Score: 13 Results - Vitals Vitals: Vital Signs - 24 hr 01/05/21 01/05/21 01/05/21 19:42 22:00 22:02 Temperature 36.0 C L Heart Rate 111 H 78 99 Respiratory 14 12 9 L Rate Blood Pressure 160/123 H 139/80 H 139/80 H O2 Saturation 96 98 94 01/05/21 01/06/21 01/06/21 22:57 00:10 00:20 Temperature Heart Rate 75 82 Respiratory 10 L 8 L Rate Blood Pressure 89/60 L O2 Saturation 95 88 L 01/06/21 00:22 Temperature Heart Rate Respiratory Rate Blood Pressure O2 Saturation 94 Oxygen O2 Source Nasal cannula Oxygen Flow Rate 4 - Labs Labs: Laboratory Tests 01/05/21 01/05/21 01/05/21 19:44 19:44 19:44 WBC 10.5 RBC 3.99 L Hgb 11.9 L Hct 37.1 MCV 93.0 MCH 29.8 MCHC 32.1 RDW 13.5 Plt Count 357 MPV 9.1 Neut # (Auto) 7.9 H Lymph # (Auto) 1.5 [place] # (Auto) 1.1 H Eos # (Auto) 0.0 Baso # (Auto) 0.1 Absolute Nucleated RBC 0.00 Nucleated RBC % 0.0 Sodium 132 L Potassium 3.9 Chloride 92 L Carbon Dioxide 31 Anion Gap 9.0 BUN < 5 L Creatinine 0.6 Estimated GFR (MDRD) 101 Glucose 159 H Lactic Acid Calcium 8.8 Phosphorus 3.5 Magnesium 1.7 Total Bilirubin 0.5 AST 29 ALT 30 Alkaline Phosphatase 75 B-Natriuretic Peptide 49 Total Protein 6.8 Albumin 2.9 L Globulin 3.9 Albumin/Globulin Ratio 0.7 L Urine Color Urine Clarity Urine pH Ur Specific [place] Urine Protein Urine Glucose (UA) Urine Ketones Urine Occult Blood Urine Nitrite Urine Bilirubin Urine Urobilinogen Ur Leukocyte Esterase Ur Microscopic Review Urine Culture Comments Nasal Adenovirus (PCR) Nasal B. parapertussis DNA (PCR) Nasal Coronavir 229E PCR Nasal Coronavir HKU1 PCR Nasal Coronavir NL63 PCR Nasal Coronavir OC43 PCR Nasal Enterovir/Rhinovir PCR Nasal Influenza B PCR Nasal Influenza A PCR Nasal Parainfluen 1 PCR Nasal Parainfluen 2 PCR Nasal Parainfluen 3 PCR Nasal Parainfluen 4 PCR Nasal RSV (PCR) Nasal B.pertussis DNA PCR Nasal C.pneumoniae (PCR) Lon Human Metapneumo PCR Nasal M.pneumoniae (PCR) Nasal SARS-CoV-2 (PCR) Urine Opiates Screen Ur Oxycodone Screen Urine Methadone Screen Ur Propoxyphene Screen Ur Barbiturates Screen Ur Tricyclics Screen Ur Phencyclidine Scrn Ur Amphetamine Screen U Methamphetamines Scrn U Benzodiazepines Scrn Urine Cocaine Screen U Cannabinoids Screen 01/05/21 01/05/21 01/05/21 21:36 22:00 22:00 WBC RBC Hgb Hct MCV MCH MCHC RDW Plt Count MPV Neut # (Auto) Lymph # (Auto) [place] # (Auto) Eos # (Auto) Baso # (Auto) Absolute Nucleated RBC Nucleated RBC % Sodium Potassium Chloride Carbon Dioxide Anion Gap BUN Creatinine Estimated GFR (MDRD) Glucose Lactic Acid 1.4 Calcium Phosphorus Magnesium Total Bilirubin AST ALT Alkaline Phosphatase B-Natriuretic Peptide Total Protein Albumin Globulin Albumin/Globulin Ratio Urine Color YELLOW Urine Clarity CLEAR Urine pH 6.0 Ur Specific [place] 1.010 Urine Protein NEGATIVE Urine Glucose (UA) NEGATIVE Urine Ketones NEGATIVE Urine Occult Blood NEGATIVE Urine Nitrite NEGATIVE Urine Bilirubin NEGATIVE Urine Urobilinogen 0.2 (NORMAL) Ur Leukocyte Esterase NEGATIVE Ur Microscopic Review NOT INDICATED Urine Culture Comments NOT INDICATED Nasal Adenovirus (PCR) Nasal B. parapertussis DNA (PCR) Nasal Coronavir 229E PCR Nasal Coronavir HKU1 PCR Nasal Coronavir NL63 PCR Nasal Coronavir OC43 PCR Nasal Enterovir/Rhinovir PCR Nasal Influenza B PCR Nasal Influenza A PCR Nasal Parainfluen 1 PCR Nasal Parainfluen 2 PCR Nasal Parainfluen 3 PCR Nasal Parainfluen 4 PCR Nasal RSV (PCR) Nasal B.pertussis DNA PCR Nasal C.pneumoniae (PCR) Lon Human Metapneumo PCR Nasal M.pneumoniae (PCR) Nasal SARS-CoV-2 (PCR) Urine Opiates Screen POSITIVE H Ur Oxycodone Screen POSITIVE H Urine Methadone Screen NEGATIVE Ur Propoxyphene Screen NEGATIVE Ur Barbiturates Screen NEGATIVE Ur Tricyclics Screen NEGATIVE Ur Phencyclidine Scrn NEGATIVE Ur Amphetamine Screen NEGATIVE U Methamphetamines Scrn NEGATIVE U Benzodiazepines Scrn POSITIVE H Urine Cocaine Screen NEGATIVE U Cannabinoids Screen NEGATIVE 01/05/21 22:10 WBC RBC Hgb Hct MCV MCH MCHC RDW Plt Count MPV Neut # (Auto) Lymph # (Auto) [place] # (Auto) Eos # (Auto) Baso # (Auto) Absolute Nucleated RBC Nucleated RBC % Sodium Potassium Chloride Carbon Dioxide Anion Gap BUN Creatinine Estimated GFR (MDRD) Glucose Lactic Acid Calcium Phosphorus Magnesium Total Bilirubin AST ALT Alkaline Phosphatase B-Natriuretic Peptide Total Protein Albumin Globulin Albumin/Globulin Ratio Urine Color Urine Clarity Urine pH Ur Specific [place] Urine Protein Urine Glucose (UA) Urine Ketones Urine Occult Blood Urine Nitrite Urine Bilirubin Urine Urobilinogen Ur Leukocyte Esterase Ur Microscopic Review Urine Culture Comments Nasal Adenovirus (PCR) NOT DETECTED Nasal B. parapertussis DNA (PCR) NOT DETECTED Nasal Coronavir 229E PCR NOT DETECTED Nasal Coronavir HKU1 PCR NOT DETECTED Nasal Coronavir NL63 PCR NOT DETECTED Nasal Coronavir OC43 PCR NOT DETECTED Nasal Enterovir/Rhinovir PCR NOT DETECTED Nasal Influenza B PCR NOT DETECTED Nasal Influenza A PCR NOT DETECTED Nasal Parainfluen 1 PCR NOT DETECTED Nasal Parainfluen 2 PCR NOT DETECTED Nasal Parainfluen 3 PCR NOT DETECTED Nasal Parainfluen 4 PCR NOT DETECTED Nasal RSV (PCR) NOT DETECTED Nasal B.pertussis DNA PCR NOT DETECTED Nasal C.pneumoniae (PCR) NOT DETECTED Lon Human Metapneumo PCR NOT DETECTED Nasal M.pneumoniae (PCR) NOT DETECTED Nasal SARS-CoV-2 (PCR) NOT DETECTED Urine Opiates Screen Ur Oxycodone Screen Urine Methadone Screen Ur Propoxyphene Screen Ur Barbiturates Screen Ur Tricyclics Screen Ur Phencyclidine Scrn Ur Amphetamine Screen U Methamphetamines Scrn U Benzodiazepines Scrn Urine Cocaine Screen U Cannabinoids Screen - Rads (name of study) chest xray Radiology: Prelim report reviewed (new infiltrate right side c/w pneumonia. ), See rad report head CT Radiology: Prelim report reviewed (prior chronic changes; no acute process. ), See rad report PD MEDICAL DECISION MAKING - ED course Complexity details: reviewed old records, reviewed results (chest xray with infiltrate, apparent pneumonia on the right. Head CT without acute changes. ), re-evaluated patient (More difficult to rouse as she has been here over few hours. Trying to get sense if she is worsening or not, so watched in ER. Seems to be having decreased sats and alertness. Not appearing septic. Unclear if meds, illness, pneumonia, etc. ), considered differential, d/w patient ED course: Has been here in the ER, she is actually showing decreasing alertness. Not really sure if she had medicated prior to coming. She has not received any sed ating medicines here. She is arousable to tactile and verbal but seems confused and oriented only to person. She is having some coarse sounds on the right with some mild wheezing. No respiratory distress. She is oxygenating at 88% on her usual 2 L nasal cannula with report of better than that baseline at home. On arrival the medics had reported satting 88 to 90% on oxygen at home. She had be en 94% or better on initial arrival here. Given some decrease in alertness along with low lower saturations and a soft blood pressure, I am concerned that she is evolving some effect from pneumonia p ossibly. At this point I do not feel she is stable for discharge and so I talked with the hospitalist. Departure - Departure Disposition: ED Place in Observation Clinical Impression: Hypoxia, General weakness Altered mental status Qualifiers: Altered mental status type: somnolence Qualified Code(s): R40.0 - Somnolence Pneumonia Qualifiers: Pneumonia type: due to unspecified organism Laterality: right Lung location: upper lobe of lung Qualified Code(s): J18.9 - Pneumonia, unspecified organism Condition: Stable Record reviewed to determine appropriate education?: Yes Discharge Date/Time: 01/06/21 01:45
[2021-01-06] MEDS ORDERED: ONDANSETRON ODT 4 MG TABLET TL PRN (00:44)
[2021-01-06] MEDS ORDERED: NALOXONE 0.4 MG/ML VIAL IVP STA (00:44)
--- NOTE | 2021-01-06 00:51 | HISTORY & PHYSICAL EXAMINATION ---
Chief Complaint - Chief Complaint Chief Complaint: Weakness History of Present Illness - Admitted From Admitted From:: Home - History Obtained From Records Reviewed: Yes History obtained from: ER Physician, EMR Exam Limitations: Patient is somnolent and unable to provide a history. - History of Present Illness HPI Comment/Other: This is a 65-year-old female with a past medical history significant for stroke with residual right-sided weakness, TBI, COPD on 2 L of oxygen, chronic pain who presented to the emergency department today reportedly complaining of difficulty urinating and weakness. History is obtained from the ER physician and the EMR as the patient is somnolent and unable to provide a history. Patient was hospitalized here just couple weeks ago for metabolic alkalosis and new seizure which was attributed to hyponatremia. Is also been treated for pneumonia during that hospitalization and was also treated for pneumonia prior to admission when she was at [facility] at the end of October. She had told the emergency department provider that she had general weakness and difficulty urinating. She was initially sleepy but easily arousable. Throughout her stay in the emergency department, she became more lethargic. Her labs were unremarkable including a normal white count, renal function, and lactic acid. Her sodium was slightly decreased at 132 but stable compared to her prior hospi talization. Urinalysis was unremarkable. Chest x-ray did reveal consolidation in the right lung. Her CT the head showed no acute abnormalities. She was given ceftriaxone and azithromycin in the emergency department. Given her progressive lethargy and somnolence, medicine was consulted for admission. I could not discuss goals of care with the patient due to her mental status. Review of prior hospitalization revealed that she was a full code during that admission and so we will make her a full code for the time being. 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 Dad aged 70.), Father: , Cancer, Sister: Alive and Well, Brother: Alive and Well Family History Comment/Other: I am unable to obtain family history. Review of records reveals she has a sister with diabetes who is on dialysis. Her mother at 68 of unknown cause. Her father had cancer and at 70. Living arrangement: At home Living Situation: With spouse/s.o. Social History Notes: I am unable to obtain a new social history. Review of records reveal that she smoked 2 to 3 packs a day for about 20 years and quit ov er 5 years ago. She is to have a history of alcohol abuse as well drinking 1/5 of vodka a day. She also quit alcohol over 5 years ago. - POLST POLST Status: DNR Meds/Allgy - Home Medications Home Medications: Ambulatory Orders Medication Instructions Recorded Confirmed Albuterol [Proventil Hfa] 2 puffs INH BID 07/24/13 01/05/21 Baclofen 20 mg PO QID 07/24/13 01/05/21 Folic Acid 1 mg PO DAILY 07/24/13 01/05/21 Ipratropium/Albuterol Inhaler 1 puffs INH BID 07/24/13 01/05/21 [Combivent Inhaler] Multivitamin [Multivitamins] 1 each PO DAILY 07/24/13 01/05/21 Aspirin [Tracey Chewable Aspirin] 81 mg PO DAILY 05/27/16 01/05/21 Morphine ER 60 mg PO BID 05/27/16 01/05/21 Atorvastatin Calcium 40 mg PO QPM 12/21/20 01/05/21 [place]-3 Fatty Acids/Fish Oil 1,000 mg PO DAILY 12/21/20 01/05/21 [[place]-3 Fish Oil 1,000 mg Sfgl] hydrOXYzine HCL [Hydroxyzine HCl] 25 mg PO BID 12/21/20 01/05/21 - Allergies Allergies/Adverse Reactions: Allergies Allergy/AdvReac Type Severity Reaction Status Date / Time No Known Drug Allergies Allergy Verified 01/05/21 19:48 Review of Systems - All Other Systems All Other Systems: reports: Other (Unable to obtain review of systems as patient is somnolent and not participating in conversation.) Prior Level of Functionality: Has a prior history of stroke with residual right-sided weakness. She ambulates with a walker at baseline. Exam - Vital Signs Reviewed Vital Signs: Yes Vital Signs: Vital Signs x48h Temp Pulse Resp BP Pulse Ox 01/06/21 00:22 94 01/06/21 00:20 88 L 01/06/21 00:10 82 8 L 89/60 L 95 01/05/21 22:57 75 10 L 01/05/21 22:02 99 9 L 139/80 H 94 01/05/21 22:00 78 12 139/80 H 98 01/05/21 19:42 36.0 C L 111 H 14 160/123 H 96 - Physical Exam General Appearance: positive: Lethargic, Other (She will move around to painful stimuli but is quite lethargic and somnolent. She does not converse.) Eyes Bilateral: positive: Normal inspection, Conjunctivae nml, Other (Left pupil is 1 mm in diameter. Right pupil is about 2 mm in diameter.) ENT: positive: ENT inspection nml, Other (Nasal cannula in place) Respiratory: positive: No respiratory distress, Rhonchi. negative: Wheezes, Rales Cardiovascular: positive: Regular rate & rhythm, No murmur. negative: Tachycardia, Bradycardia, Systolic murmur Abdomen: positive: Non-tender, No distention. negative: Tenderness Skin: positive: Warm, Dry Extremities: positive: Pedal edema (+2 pitting edema in the bilateral lower ext remities.) Neurologic/Psychiatric: positive: Other (Unable to obtain neuro exam as she was quite somnolent and would not participate in exam.) Conclusion/Plan - Problem List (1) Altered mental status Conclusion/Plan: She has been progressively somnolent since her arrival to the emergency depart ment. She does move to painful stimuli but will not participate in conversation. CT of the head showed no acute abnormalities. Her labs are unremarkable. She is on morphine at home for chronic pain and I do wonder if this may be playing a part in her presentation. We will give her a dose of Charles can right now and reassess. Check a urine toxicology screen. We will start her on antibiotics for pneumonia as her mentation may potentially be related to infection given the chest x-ray findings. Hold all sedatives. Will check ABG as well. Qualifiers: Altered mental status type: somnolence Qualified Code(s): R40.0 - Somnolence (2) Community acquired pneumonia Conclusion/Plan: She has been treated in the past for left lower lobe pneumonia twice in the past month. She has evidence of a right sided consolidation on x-ray. She has no white count and she is on her baseline 2 L of oxygen. We will start her on IV Levaquin given she was recently on ceftriaxone and azithromycin. We will also add Flagyl as a could be a component of aspiration given it is a right-sided consolidation. We will check blood cultures. We will continue her on IV fluids given her blood pressure is soft. Qualifiers: Laterality: right (3) Chronic respiratory failure with hypoxia Conclusion/Plan: This is secondary to COPD. She remains on her 2 L of oxygen. We will start on antibiotics as mentioned above for pneumonia. (4) Chronic pain Conclusion/Plan: She is on morphine for chronic pain and I am concerned this may be playing a part in her presentation given she is also on baclofen and hydroxyzine. We will give her a dose of Narcan now check a urine toxicology screen. Hold morphine. (5) COPD (chronic obstructive pulmonary disease) Conclusion/Plan: Stable. She is only on Combivent and albuterol at home which she will continue. Continue with her baseline 2 L of oxygen. Qualifiers: COPD type: COPD with acute exacerbation Qualified Code(s): J44.1 - Chronic obstructive pulmonary disease with (acute) exacerbation (6) History of stroke with residual deficit Conclusion/Plan: She is a history of stroke with residual right-sided deficits. CT of the head today showed no acute abnormalities. We will continue her home aspirin and statin once she is taking p.o. - Lab Results Lab results reviewed: Yes Fish Bones: 01/05/21 19:44 01/05/21 19:44 - Diagnostic Imaging Results Diagnostic Imaging Results: positive: Final report reviewed
[2021-01-06] MEDS ORDERED: LACTATED RINGERS 1,000 ML IV SCH (01:00)
[2021-01-06 01:29] LABS: MUDS CUTOFF CONCENTRATIONS CUTOFF CONC BELOW:
[2021-01-06 01:39] LABS: AMPHETAMINE SCREEN,URINE NEGATIVE (NEGATIVE); BENZODIAZEPINES SCREEN, URINE POSITIVE (NEGATIVE); COCAINE SCREEN URINE NEGATIVE (NEGATIVE); METHADONE SCREEN, URINE NEGATIVE (NEGATIVE); METHAMPHETAMINES SCREEN, URINE NEGATIVE (NEGATIVE); OPIATE SCREEN, URINE POSITIVE (NEGATIVE); OXYCODONE SCREEN, URINE POSITIVE (NEGATIVE); PROPOXYPHENE SCREEN, URINE NEGATIVE (NEGATIVE); TRICYCLIC ANTIDEPRESSANT,URINE NEGATIVE (NEGATIVE)
[2021-01-06] MEDS ORDERED: NALOXONE 0.4 MG/ML VIAL IVP ONE (02:10)
[2021-01-06] MEDS: SODIUM CHLORIDE FLUSH 0.9% 10 ML SYRINGE IVP SCH ×3 (02:28→16:09)
[2021-01-06] MEDS ORDERED: LACTATED RINGERS 500 ML IV ONE ×2 (02:33→08:01)
[2021-01-06] MEDS: levoFLOXacin 750 MG/150 ML 750 MG/150 ML BAG IV SCH (02:40)
[2021-01-06 03:01] LABS: ABG PCO2 45 mmHg (34-45); ABG PH 7.36 (7.35-7.45)
[2021-01-06 03:02] LABS: ABG BASE EXCESS -1.1 mmol/L (-2.0-3.0); ABG FRACTION OF INSPIRED O2 0.28; ABG HCO3 24.6 mmol/L (22.0-26.0); ABG OXYGEN SATURATION 92 % (94-98); ABG PO2 65 mmHg (80-100); ABG TCO2 25.9 MMOL/L (21.0-29.0); ALLEN TEST POSITIVE
[2021-01-06] MEDS: metroNIDAZOLE 500 MG/100 ML 500 MG/100 ML BAG IV SCH ×3 (04:39→17:41)
[2021-01-06 05:49] LABS: BASOPHILS % (AUTO) 0.5 %; EOSINOPHILS % (AUTO) 0.3 %; HGB - HEMOGLOBIN 10.3 g/dL (12.0-16.0); LYMPHOCYTES # (AUTO) 1.6 10^3/uL (1.5-3.5); LYMPHOCYTES % (AUTO) 20.1 %; MEAN CORPUSCULAR HEMOGLOBIN 29.4 pg (27.0-31.0); MEAN CORPUSCULAR HGB CONC 30.7 g/dL (32.0-36.0); MEAN PLATELET VOLUME 9.1 fL (7.9-10.8); MONOCYTES # (AUTO) 0.6 10^3/uL (0.0-1.0); MONOCYTES % (AUTO) 7.5 %; NEUTROPHILS # (AUTO) 5.7 10^3/uL (1.5-6.6); NEUTROPHILS % (AUTO) 71.3 %; PLT - PLATELET COUNT 330 10^3/uL (130-450); RED CELL DISTRIBUTION WIDTH 13.6 % (12.0-15.0)
[2021-01-06 05:54] LABS: BUN - BLOOD UREA NITROGEN < 5 mg/dL (6-20); CARBON DIOXIDE - CO2 29 mmol/L (21-32); CHLORIDE 99 mmol/L (101-111); CREATININE 0.5 mg/dL (0.4-1.0); GLUCOSE 129 mg/dL (70-100)
--- NOTE | 2021-01-06 07:12 | PROVIDER PROGRESS NOTE ---
Hospitalist Cross-cover Note - Cross-Cover Note Cross-Cover Note: Patient was admitted earlier this morning with altered mental status and difficulty urinating. Patient was seen this morning. Though awake she is not able to carry out a meaningful conversation. She does not acknowledge her name and cannot tell where she is or why she is here. She was tachycardic with a heart rate as high as 120s and her systolic blood pressure was in the 90s. She is on Levaquin and Flagyl for a possible pneumonia. She is also receiving IV hydration. Her pain medications which include MS Contin currently being held due to her altered mental status upon presentation. Bladder scan indicated over a liter of urine. She had a Machado catheter placed with instantly more than 1 L of fluid out. We will continue to evaluate patient and treat accordingly. The patient's Wilberto Carias was updated on patient's clinical status. We will switch patient to inpatient.
--- NOTE | 2021-01-06 07:27 | CT Report ---
PROCEDURE: HEAD WO INDICATIONS: confused; prior CVA past few months TECHNIQUE: Noncontrast 4.5 mm thick angled axial sections acquired from the foramen magnum to the vertex. For r adiation dose reduction, the following was used: automated exposure control, adjustment of mA and/or kV according to patient size. COMPARISON: 12/20/2020.. FINDINGS: Image quality: Excellent. CSF spaces: Basal cisterns are patent. Small right zrahrab-cbbtxdsy-xzsjdyty low-density extra-axial fluid collection adjacent to the craniotomy site is stable. Ventricles are normal in size and shape. Brain: No midline shift. No intracranial masses or hemorrhage. Luna-white matter interface is norm al. Skull and face: Postsurgical changes compatible with prior right xsbpypz-hmpxoaxl-kbsktrtx craniotomy stable compared to the prior exam. Visualized facial bones are intact, without suspicious lesions. Sinuses: Visualized sinuses and mastoids are clear. IMPRESSION: Stable examination compared to 12/20/2020 with no acute intracranial disease process. Reviewed by: Nina Daniels MD, PhD on 01/06/2021 7:25 AM PST Approved by: Nina Daniels MD, PhD on 01/06/2021 7:25 AM PST Station ID: [id number]
[2021-01-06] MEDS: IPRATROPIUM/ALBUTEROL 3 ML NEB INH SCH ×2 (07:51→07:56)
--- NOTE | 2021-01-06 08:51 | XRAY Report ---
PROCEDURE: Chest 1 View X-Ray INDICATIONS: chest pain TECHNIQUE: One view of the chest was acquired. COMPARISON: Chest x-ray 12/21/2020, 12/20/2020, 10/04/2019, chest CT 01/31/2018. FINDINGS: Surgical changes and devices: None. Lungs and pleura: There is persistent elevation of the left hemidiaphragm with associated pleural thi ckening laterally in the costophrenic angle. Increased pulmonary edema is present as well as has incr eased confluent right perihilar opacities. No definite pleural effusions or pneumothorax. Mediastinum: There is mild rightward shift of the mediastinum likely due to patient rotation. Heart s ize is enlarged. Bones and chest wall: There are healed left rib fractures redemonstrated. Overlying soft tissues kesha ear unremarkable. IMPRESSION: 1. Increased pulmonary edema. 2. Increased confluent right perihilar opacities are nonspecific and the differential includes pneumo oxana, inflammatory processes, or asymmetric edema. Reviewed by: Dre Reyes MD on 01/06/2021 8:50 AM PST Approved by: Dre Reyes MD on 01/06/2021 8:50 AM PST Station ID: [id number]
[2021-01-06] MEDS ORDERED: ALBUTEROL 6.7 GM INHALER INH SCH (09:00)
[2021-01-06] MEDS ORDERED: SODIUM CHLORIDE 0.9% 1,000 ML IV SCH (09:00)
[2021-01-06] MEDS: ENOXAPARIN 40 MG/0.4 ML SYRINGE SUBQ SCH (09:03)
[2021-01-06] MEDS ORDERED: DEXTROSE 5%-0.45% NACL 1,000 ML IV SCH (11:00)
[2021-01-06] MEDS: OMEGA-3 ACID ETHYL ESTERS 1 GM CAPSULE PO SCH (11:06)
[2021-01-06] MEDS: MULTIVITAMIN TABLET PO SCH (11:06)
[2021-01-06] MEDS: FOLIC ACID 1 MG TABLET PO SCH (11:06)
[2021-01-06] MEDS: ASPIRIN CHEW 81 MG TABLET PO SCH (11:06)
[2021-01-06] MEDS ORDERED: LABETALOL 20 MG/4 ML SYRINGE IVP STA (15:47)
[2021-01-06] MEDS ORDERED: FUROSEMIDE 20 MG/2 ML VIAL IVP STA (18:59)
[2021-01-06] MEDS: TAMSULOSIN 0.4 MG CAPSULE PO SCH (19:24)
[2021-01-06] MEDS: ATORVASTATIN 40 MG TABLET PO SCH (20:04)
[2021-01-07] MEDS: metroNIDAZOLE 500 MG/100 ML 500 MG/100 ML BAG IV SCH ×3 (00:37→17:14)
[2021-01-07] MEDS: SODIUM CHLORIDE FLUSH 0.9% 10 ML SYRINGE IVP SCH ×4 (00:42→23:31)
[2021-01-07] MEDS ORDERED: MORPHINE ER 15 MG TABLET PO SCH (01:00)
[2021-01-07] MEDS: BACLOFEN 10 MG TABLET PO SCH ×5 (01:03→22:06)
[2021-01-07] MEDS: levoFLOXacin 750 MG/150 ML 750 MG/150 ML BAG IV SCH (01:21)
[2021-01-07] MEDS: PHENAZOPYRIDINE 100 MG TABLET PO SCH ×3 (02:20→22:04)
[2021-01-07] MEDS: METOPROLOL 5 MG/5 ML VIAL IVP SCH ×3 (02:20→18:26)
[2021-01-07] MEDS: SODIUM CHLORIDE FLUSH 0.9% 10 ML SYRINGE IVP PRN ×2 (02:21→09:18)
[2021-01-07 04:44] LABS: BASOPHILS # (AUTO) 0.1 10^3/uL (0.0-0.1); BASOPHILS % (AUTO) 0.6 %; EOSINOPHILS # (AUTO) 0.1 10^3/uL (0.0-0.7); EOSINOPHILS % (AUTO) 0.8 %; HGB - HEMOGLOBIN 11.8 g/dL (12.0-16.0); LYMPHOCYTES # (AUTO) 2.6 10^3/uL (1.5-3.5); LYMPHOCYTES % (AUTO) 25.2 %; MEAN CORPUSCULAR HEMOGLOBIN 30.3 pg (27.0-31.0); MEAN CORPUSCULAR HGB CONC 32.9 g/dL (32.0-36.0); MEAN CORPUSCULAR VOLUME 92.1 fL (81.0-99.0); MONOCYTES # (AUTO) 1.1 10^3/uL (0.0-1.0); MONOCYTES % (AUTO) 10.7 %; NEUTROPHILS # (AUTO) 6.5 10^3/uL (1.5-6.6); NEUTROPHILS % (AUTO) 62.5 %; PLT - PLATELET COUNT 380 10^3/uL (130-450); RED CELL DISTRIBUTION WIDTH 13.5 % (12.0-15.0); WHITE BLOOD COUNT 10.4 x10^3/uL (4.8-10.8)
[2021-01-07 04:50] LABS: BUN - BLOOD UREA NITROGEN < 5 mg/dL (6-20); CALCIUM 8.3 mg/dL (8.5-10.3); CARBON DIOXIDE - CO2 28 mmol/L (21-32); CHLORIDE 93 mmol/L (101-111); CREATININE 0.5 mg/dL (0.4-1.0); GLUCOSE 165 mg/dL (70-100)
[2021-01-07] MEDS ORDERED: PHENAZOPYRIDINE 100 MG TABLET PO SCH (06:00)
[2021-01-07] MEDS ORDERED: POTASSIUM CHLORIDE 20 MEQ TABLET PO ONE (07:38)
[2021-01-07] MEDS ORDERED: FUROSEMIDE 20 MG/2 ML VIAL IVP STA (07:39)
--- NOTE | 2021-01-07 07:41 | PROVIDER PROGRESS NOTE ---
Assessment/Plan - Problem List (1) Pneumonia Qualifiers: Pneumonia type: due to unspecified organism Laterality: right Lung location: upper lobe of lung Qualified Code(s): J18.9 - Pneumonia, unspecified organism Assessment/Plan: community-acquired pneumonia. However aspiration suspected as well. The patient was seen by speech therapy yesterday who recommended dysphagia diet with nectar thick liquids. The patient is on Flagyl and Levaquin (2) Pulmonary edema Assessment/Plan: Possibly iatrogenic Presented with low blood pressure requiring IV hydration. IV fluids have been discontinued. Patient was given Lasix 20 mg IV yesterday. Another dose of Lasix 20 mg IV was given today. Chest x-ray done this morning showed that pulmonary edema persisted. We will continue to evaluate and treat accordingly. 2D echocardiogram pending. (3) Acute and chronic respiratory failure Assessment/Plan: Likely multifactorial. Patient has underlying condition of COPD though not currently in exacerbation. Patient has pneumonia suspected to be secondary to community-acquired versus aspiration. She is on Levaquin and Flagyl. She also had pulmonary edema. Fluids have been discontinued patient received 2 doses of Lasix 20 mg IV. 2D echocardiogram pending. Patient received breathing treatment. Respiratory therapy following. There has been improvement in her respiratory status. O2 sats is 94%. Her oxygen requirement has been decreased to 2 L nasal cannula which is her home days. (4) Sinus tachycardia Assessment/Plan: This could be due to withdrawal from having her opiate held for a day. It could also be due to pulmonary edema and or pneumonia. The patient's MS Contin 60 mg p.o. twice daily and baclofen 4 times daily was resumed last night. IV fluids have been discontinued and Lasix was given. We will continue to evaluate and treat accordingly. (5) Altered mental status Qualifiers: Altered mental status type: somnolence Qualified Code(s): R40.0 - Somnolence Assessment/Plan: This was initially thought to be due to patient's opiate medications. The patient is on MS Contin 60mg twice daily and baclofen 4 times daily This was held for about 24 hours and patient's mentation improved significantly. They were then resumed yesterday for concern of possible withdrawal. Patient's mentation could also possibly have been affected by infection: Pneumonia. She is on IV antibiotics. (6) Urinary retention Assessment/Plan: Etiology undetermined. Patient has a Machado catheter in place. Tamsulosin was initiated yesterday. Plan would be to discontinue tamsulosin and possibly Machado later today and reevaluate with bladder scans. Patient's urine analysis was unremarkable (7) COPD (chronic obstructive pulmonary disease) Qualifiers: COPD type: COPD with acute exacerbation Qualified Code(s): J44.1 - Chronic obstructive pulmonary disease with (acute) exacerbation Assessment/Plan: Not in exacerbation. Xopenex every 4 hours as needed (8) History of stroke with residual deficit Assessment/Plan: Patient has right-sided residual deficit. When medically stable or improved we will have PT OT evaluate and treat. Social work to help facilitate disposition plans/placement - Current Meds Current Meds: Current Medications Generic Name Dose Route Start Last Admin Trade Name Freq PRN Reason Stop Dose Admin Aspirin 81 mg 01/06/21 09:00 01/06/21 11:06 Aspirin Chew 81 Mg Tablet PO Not Given DAILY NALDO Atorvastatin Calcium 40 mg 01/06/21 21:00 01/06/21 20:04 Atorvastatin 40 Mg Tablet PO 40 mg QPM NALDO Administration Baclofen 20 mg 01/07/21 00:37 01/07/21 01:03 Baclofen 10 Mg Tablet PO 20 mg QID NALDO Administration Enoxaparin Sodium 40 mg 01/06/21 09:00 01/06/21 09:03 Enoxaparin 40 Mg/0.4 Ml Syringe SUBQ 40 mg DAILY NALDO Administration Folic Acid 1 mg 01/06/21 09:00 01/06/21 11:06 Folic Acid 1 Mg Tablet PO Not Given DAILY NALDO Levofloxacin 750 mg in 150 mls @ 100 mls/hr 01/06/21 01:00 01/07/21 02:59 Levaquin 750 Mg/150 Ml IV 01/10/21 02:29 Infused Q24H NALDO Infusion Metronidazole 500 mg in 100 mls @ 100 mls/hr 01/06/21 01:00 01/07/21 01:45 Flagyl 500 Mg/100 Ml IV 01/10/21 17:59 Infused Q8H NALDO Infusion Metoprolol Tartrate 5 mg 01/07/21 02:14 01/07/21 02:20 Metoprolol 5 Mg/5 Ml Vial IVP 5 mg Q8H NALDO Administration Multivitamins 1 tab 01/06/21 09:00 01/06/21 11:06 Multivitamin Tablet PO Not Given DAILY NALDO [id number] Ethyl Esters 1 gm 01/06/21 09:00 01/06/21 11:06 [place]-3 Acid Ethyl Esters 1 Gm Capsule PO Not Given DAILY NALDO Phenazopyridine HCl 100 mg 01/07/21 02:15 01/07/21 02:20 Phenazopyridine 100 Mg Tablet PO 100 mg TID NALDO Administration Sodium Chloride 10 ml 01/06/21 00:44 01/07/21 02:21 Sodium Chloride Flush 0.9% 10 Ml Syringe IVP 10 ml PRN PRN Administration NEEDED PER PROVIDER ORDERS Sodium Chloride 10 ml 01/06/21 01:00 01/07/21 00:42 Sodium Chloride Flush 0.9% 10 Ml Syringe IVP 10 ml 0100,0900,1700 NALDO Administration Tamsulosin HCl 0.4 mg 01/06/21 19:09 01/06/21 19:24 Tamsulosin 0.4 Mg Capsule PO 0.4 mg DAILY NALDO Administration - Lab Result Fish Bone Diagrams: 01/07/21 04:35 01/07/21 04:35 - Additional Planning My Orders: My Active Orders 01/06/21 07:52 Nebulizer [Nebulizer/MDI Tx.] [RC] .QID 01/06/21 07:55 Levalbuterol [Xopenex] 1.25 mg INH Q4H PRN 01/06/21 07:56 Nebulizer/MDI Tx. [RC] .qid Resp Teach Nebulizer/MDI [RC] .ONCE 01/06/21 08:30 Machado Insertion [RC] QSHIFT 01/06/21 Dinner Dysphagia Puree Diet [DIET] 01/06/21 19:09 Tamsulosin [Flomax] 0.4 mg PO DAILY 01/07/21 07:38 Potassium Chloride [K-Dur] 40 meq PO ONCE ONE 01/07/21 07:39 FUROSEMIDE INJ 20mg VIAL [LASIX INJ 20mg VIAL] 20 mg IVP ONCE STA 01/07/21 08:00 Potassium Chloride/Water 10 mEq/100 mL q1h (Enter # of bags) Potassium Chlor 10 Meq/100 ml [Potassium Chloride] 10 meq in 100 ml IV Q1H Subjective - Subjective Patient Reports: Other (Patient is awake and more alert today. She is able to answer to her name and tell where she is. She denies any increased work of breathing however she physically appears to be dyspneic. She is fixated on urinating despite having a Machado in place) Objective Vital Signs: Vital Signs - 24 hr 01/06/21 01/06/21 01/06/21 08:00 08:05 10:34 Temperature 36.7 C Heart Rate [ 121 H 112 H Brachial] Respiratory 16 Rate Blood Pressure Blood Pressure 168/62 H 154/92 H 148/88 H [Left Brachial artery] Blood Pressure [Right Brachial artery] O2 Saturation 95 01/06/21 01/06/21 01/06/21 11:30 11:33 11:56 Temperature 36.8 C Heart Rate [ 75 72 112 H Brachial] Respiratory 14 Rate Blood Pressure Blood Pressure 72/42 L 79/38 L 130/95 H [Left Brachial artery] Blood Pressure [Right Brachial artery] O2 Saturation 94 01/06/21 01/06/21 01/06/21 15:55 16:08 16:17 Temperature 38.0 C H Heart Rate [ 144 H 135 H 103 H Brachial] Respiratory 18 Rate Blood Pressure Blood Pressure 139/96 H 152/79 H 143/80 H [Left Brachial artery] Blood Pressure [Right Brachial artery] O2 Saturation 90 L 01/06/21 01/06/21 01/06/21 16:23 19:54 20:41 Temperature 37.2 C Heart Rate [ 105 H 127 H 115 H Brachial] Respiratory 18 Rate Blood Pressure Blood Pressure 143/84 H 162/90 H [Left Brachial artery] Blood Pressure [Right Brachial artery] O2 Saturation 90 L 93 01/06/21 01/06/21 01/06/21 21:35 21:41 23:44 Temperature 37.2 C Heart Rate [ 120 H 119 H 123 H Brachial] Respiratory 26 H Rate Blood Pressure Blood Pressure 154/86 H 177/104 H [Left Brachial artery] Blood Pressure 159/91 H [Right Brachial artery] O2 Saturation 92 90 L 01/07/21 01/07/21 01/07/21 00:47 02:08 02:20 Temperature 36.9 C Heart Rate [ 166 H Brachial] Respiratory 24 Rate Blood Pressure 143/88 H Blood Pressure [Left Brachial artery] Blood Pressure 143/88 H [Right Brachial artery] O2 Saturation 94 88 L 01/07/21 01/07/21 01/07/21 02:25 02:30 02:35 Temperature Heart Rate [ 107 H 111 H 111 H Brachial] Respiratory Rate Blood Pressure Blood Pressure 155/94 H 155/101 H 153/97 H [Left Brachial artery] Blood Pressure [Right Brachial artery] O2 Saturation 01/07/21 01/07/21 01/07/21 02:50 03:05 03:20 Temperature Heart Rate [ 116 H 121 H 115 H Brachial] Respiratory Rate Blood Pressure Blood Pressure 158/104 H 159/111 H 147/89 H [Left Brachial artery] Blood Pressure [Right Brachial artery] O2 Saturation 93 01/07/21 01/07/21 01/07/21 04:40 05:55 07:30 Temperature 37.1 C 36.8 C Heart Rate [ 109 H 104 H Brachial] Respiratory 24 19 Rate Blood Pressure Blood Pressure 135/87 H 156/92 H [Left Brachial artery] Blood Pressure [Right Brachial artery] O2 Saturation 93 93 92 Oxygen O2 Source Oxymask Oxygen Flow Rate 4 I&O (Last 24 Hrs): Intake and Output Totals x24h 01/05/21 01/06/21 01/07/21 23:59 23:59 23:59 Intake Total 565 4413.16 1080 Output Total 4550 1480 Balance 565 -136.84 -400 General: Alert, Oriented x3, Other (Mild respiratory distress) HEENT: PERRLA, EOMI Neck: Supple, No JVD Neuro: Alert, Other (right-sided Weaknessresidual deficits) Cardiovascular: Normal S1, Normal S2, Other (Mildly tachycardic) Respiratory: Rhonchi, Other (Mild respiratory distress) Extremities: No clubbing, No edema Skin: No rashes - Results Results: Laboratory Results WBC 10.4 x10^3/uL (4.8-10.8) 01/07/21 04:35 RBC 3.90 10^6/uL (4.20-5.40) L 01/07/21 04:35 Hgb 11.8 g/dL (12.0-16.0) L 01/07/21 04:35 Hct 35.9 % (37.0-47.0) L 01/07/21 04:35 MCV 92.1 fL (81.0-99.0) 01/07/21 04:35 MCH 30.3 pg (27.0-31.0) 01/07/21 04:35 MCHC 32.9 g/dL (32.0-36.0) 01/07/21 04:35 RDW 13.5 % (12.0-15.0) 01/07/21 04:35 Plt Count 380 10^3/uL (130-450) 01/07/21 04:35 MPV 9.0 fL (7.9-10.8) 01/07/21 04:35 Neut # (Auto) 6.5 10^3/uL (1.5-6.6) 01/07/21 04:35 Lymph # (Auto) 2.6 10^3/uL (1.5-3.5) 01/07/21 04:35 Bureau # (Auto) 1.1 10^3/uL (0.0-1.0) H 01/07/21 04:35 Eos # (Auto) 0.1 10^3/uL (0.0-0.7) 01/07/21 04:35 Baso # (Auto) 0.1 10^3/uL (0.0-0.1) 01/07/21 04:35 Absolute Nucleated RBC 0.00 x10^3/uL 01/07/21 04:35 Nucleated RBC % 0.0 /100WBC 01/07/21 04:35 Bld Gas Analysis Time 0258 01/06/21 02:50 Sample Site LEFT RADIAL 01/06/21 02:50 ABG pH 7.36 (7.35-7.45) 01/06/21 02:50 ABG pCO2 45 mmHg (34-45) 01/06/21 02:50 ABG pO2 65 mmHg (80-100) L 01/06/21 02:50 ABG HCO3 24.6 mmol/L (22.0-26.0) 01/06/21 02:50 ABG Total CO2 25.9 MMOL/L (21.0-29.0) 01/06/21 02:50 ABG O2 Saturation 92 % (94-98) L 01/06/21 02:50 ABG Base Excess -1.1 mmol/L (-2.0-3.0) 01/06/21 02:50 Hamzah Test POSITIVE 01/06/21 02:50 O2 Delivery Device NASAL CANNULA 01/06/21 02:50 O2 Liters/Min 2.00 LPM 01/06/21 02:50 FiO2 0.28 01/06/21 02:50 Sodium 132 mmol/L (135-145) L 01/07/21 04:35 Potassium 3.4 mmol/L (3.5-5.0) L 01/07/21 04:35 Chloride 93 mmol/L (101-111) L 01/07/21 04:35 Carbon Dioxide 28 mmol/L (21-32) 01/07/21 04:35 Anion Gap 11.0 (6-13) 01/07/21 04:35 BUN < 5 mg/dL (6-20) L 01/07/21 04:35 Creatinine 0.5 mg/dL (0.4-1.0) 01/07/21 04:35 Estimated GFR (MDRD) 125 (>89) 01/07/21 04:35 Glucose 165 mg/dL (70-100) H 01/07/21 04:35 POC Whole Bld Glucose 94 mg/dL (70 - 100) 01/06/21 11:30 Lactic Acid 1.4 mmol/L (0.5-2.2) 01/05/21 21:36 Calcium 8.3 mg/dL (8.5-10.3) L 01/07/21 04:35 Phosphorus 3.5 mg/dL (2.5-4.6) 01/05/21 19:44 Magnesium 1.7 mg/dL (1.7-2.8) 01/05/21 19:44 Total Bilirubin 0.5 mg/dL (0.2-1.0) 01/05/21 19:44 AST 29 IU/L (10-42) 01/05/21 19:44 ALT 30 IU/L (10-60) 01/05/21 19:44 Alkaline Phosphatase 75 IU/L (42-121) 01/05/21 19:44 B-Natriuretic Peptide 222 pg/mL (5-100) H 01/07/21 04:35 Total Protein 6.8 g/dL (6.7-8.2) 01/05/21 19:44 Albumin 2.9 g/dL (3.2-5.5) L 01/05/21 19:44 Globulin 3.9 g/dL (2.1-4.2) 01/05/21 19:44 Albumin/Globulin Ratio 0.7 (1.0-2.2) L 01/05/21 19:44 Urine Color YELLOW 01/05/21 22:00 Urine Clarity CLEAR (CLEAR) 01/05/21 22:00 Urine pH 6.0 PH (5.0-7.5) 01/05/21 22:00 Ur Specific [place] 1.010 (1.002-1.030) 01/05/21 22:00 Urine Protein NEGATIVE mg/dL (NEGATIVE) 01/05/21 22:00 Urine Glucose (UA) NEGATIVE mg/dL (NEGATIVE) 01/05/21 22:00 Urine Ketones NEGATIVE mg/dL (NEGATIVE) 01/05/21 22:00 Urine Occult Blood NEGATIVE (NEGATIVE) 01/05/21 22:00 Urine Nitrite NEGATIVE (NEGATIVE) 01/05/21 22:00 Urine Bilirubin NEGATIVE (NEGATIVE) 01/05/21 22:00 Urine Urobilinogen 0.2 (NORMAL) E.U./dL (NORMAL) 01/05/21 22:00 Ur Leukocyte Esterase NEGATIVE (NEGATIVE) 01/05/21 22:00 Ur Microscopic Review NOT INDICATED 01/05/21 22:00 Urine Culture Comments NOT INDICATED 01/05/21 22:00 Nasal Adenovirus (PCR) NOT DETECTED 01/05/21 22:10 Nasal B. parapertussis DNA (PCR) NOT DETECTED 01/05/21 22:10 Nasal Coronavir 229E PCR NOT DETECTED 01/05/21 22:10 Nasal Coronavir HKU1 PCR NOT DETECTED 01/05/21 22:10 Nasal Coronavir NL63 PCR NOT DETECTED 01/05/21 22:10 Nasal Coronavir OC43 PCR NOT DETECTED 01/05/21 22:10 Nasal Enterovir/Rhinovir PCR NOT DETECTED 01/05/21 22:10 Nasal Influenza B PCR NOT DETECTED 01/05/21 22:10 Nasal Influenza A PCR NOT DETECTED 01/05/21 22:10 Nasal Parainfluen 1 PCR NOT DETECTED 01/05/21 22:10 Nasal Parainfluen 2 PCR NOT DETECTED 01/05/21 22:10 Nasal Parainfluen 3 PCR NOT DETECTED 01/05/21 22:10 Nasal Parainfluen 4 PCR NOT DETECTED 01/05/21 22:10 Nasal RSV (PCR) NOT DETECTED 01/05/21 22:10 Nasal B.pertussis DNA PCR NOT DETECTED 01/05/21 22:10 Nasal C.pneumoniae (PCR) NOT DETECTED 01/05/21 22:10 Lon Human Metapneumo PCR NOT DETECTED 01/05/21 22:10 Nasal M.pneumoniae (PCR) NOT DETECTED 01/05/21 22:10 Nasal SARS-CoV-2 (PCR) NOT DETECTED 01/05/21 22:10 Urine Opiates Screen POSITIVE (NEGATIVE) H 01/05/21 22:00 Ur Oxycodone Screen POSITIVE (NEGATIVE) H 01/05/21 22:00 Urine Methadone Screen NEGATIVE (NEGATIVE) 01/05/21 22:00 Ur Propoxyphene Screen NEGATIVE (NEGATIVE) 01/05/21 22:00 Ur Barbiturates Screen NEGATIVE (NEGATIVE) 01/05/21 22:00 Ur Tricyclics Screen NEGATIVE (NEGATIVE) 01/05/21 22:00 Ur Phencyclidine Scrn NEGATIVE (NEGATIVE) 01/05/21 22:00 Ur Amphetamine Screen NEGATIVE (NEGATIVE) 01/05/21 22:00 U Methamphetamines Scrn NEGATIVE (NEGATIVE) 01/05/21 22:00 U Benzodiazepines Scrn POSITIVE (NEGATIVE) H 01/05/21 22:00 Urine Cocaine Screen NEGATIVE (NEGATIVE) 01/05/21 22:00 U Cannabinoids Screen NEGATIVE (NEGATIVE) 01/05/21 22:00 ABX Reporting Has patient been on IV antibiotics over the past 48 hours?: Yes
--- NOTE | 2021-01-07 08:25 | XRAY Report ---
PROCEDURE: Chest 1 View X-Ray INDICATIONS: Hypoxia TECHNIQUE: One view of the chest was acquired. COMPARISON: 01/05/2021, 12/21/2020. FINDINGS: Surgical changes and devices: None. Lungs and pleura: Elevation of the left hemidiaphragm redemonstrated. There are progressively increa sed confluent right suprahilar airspace opacities consistent with consolidation. Increased left retro cardiac opacities are also demonstrated consistent with atelectasis or consolidation. There is persis tent pulmonary edema. No definite pneumothorax, with the left apex partially secured by the patient's neck soft tissues. There is blunting of the left costophrenic angle again noted likely representing pleural thickening. No definite pleural effusions. Mediastinum: Mediastinal contours appear unchanged. There is suspected cardiomegaly, with the left heart contours are obscured by the elevated left hemidiaphragm. Bones and chest wall: No suspicious bony lesions. Overlying soft tissues appear unremarkable. IMPRESSION: 1. Progressively increased right suprahilar consolidation likely representing pneumonia. 2. Increased left retrocardiac consolidation or atelectasis. 3. Persistent pulmonary edema. Reviewed by: Dre Reyes MD on 01/07/2021 8:24 AM PST Approved by: Dre Reyes MD on 01/07/2021 8:24 AM PST Station ID: [id number]
[2021-01-07] MEDS: ENOXAPARIN 40 MG/0.4 ML SYRINGE SUBQ SCH (09:07)
[2021-01-07] MEDS: MULTIVITAMIN TABLET PO SCH (09:07)
[2021-01-07] MEDS: MORPHINE SULFATE ER 30 MG TABLET PO SCH ×2 (09:08→22:04)
[2021-01-07] MEDS: ASPIRIN CHEW 81 MG TABLET PO SCH (09:09)
[2021-01-07] MEDS: FOLIC ACID 1 MG TABLET PO SCH (09:09)
[2021-01-07] MEDS: OMEGA-3 ACID ETHYL ESTERS 1 GM CAPSULE PO SCH (09:10)
[2021-01-07] MEDS: TAMSULOSIN 0.4 MG CAPSULE PO SCH (09:11)
[2021-01-07] MEDS: POTASSIUM CHLOR 10 MEQ/100 ML 10 MEQ/100 ML BAG IV SCH ×4 (09:22→12:45)
[2021-01-07] MEDS: LEVALBUTEROL 1.25 MG/3 ML NEB INH PRN (09:40)
--- NOTE | 2021-01-07 16:07 | PHARMACY PROGRESS NOTE ---
- Best Possible Medication History Admit Date and Time: 01/06/21 1717 Processed by: Pharmacy Medication History completed: Yes Patient Interview: Pt unable to participate Secondary Source(s): Written medication list, Insurance records Pt unable to answer questions about med list. A list was given to pharmacy. Medication reconciled from list and insurance. As the person ultimately responsible for medication therapy, providers are able to order a medication from an existing home medication list in [facility] via the "Reconcile Routine" prior to Confirmation of that medication by ict support and test engineers. Such practice is discouraged except when the physician, in their clinical judgment, deems that a medical need exists for a medication without regard to previous use.
[2021-01-07] MEDS: ATORVASTATIN 40 MG TABLET PO SCH (22:04)
[2021-01-08] MEDS: metroNIDAZOLE 500 MG/100 ML 500 MG/100 ML BAG IV SCH ×3 (00:35→17:04)
[2021-01-08] MEDS: levoFLOXacin 750 MG/150 ML 750 MG/150 ML BAG IV SCH (00:35)
[2021-01-08] MEDS: METOPROLOL 5 MG/5 ML VIAL IVP SCH (02:13)
[2021-01-08 04:30] LABS: BASOPHILS # (AUTO) 0.1 10^3/uL (0.0-0.1); BASOPHILS % (AUTO) 0.8 %; EOSINOPHILS # (AUTO) 0.2 10^3/uL (0.0-0.7); EOSINOPHILS % (AUTO) 2.3 %; HGB - HEMOGLOBIN 11.5 g/dL (12.0-16.0); LYMPHOCYTES # (AUTO) 3.2 10^3/uL (1.5-3.5); LYMPHOCYTES % (AUTO) 30.6 %; MEAN CORPUSCULAR HEMOGLOBIN 29.6 pg (27.0-31.0); MEAN CORPUSCULAR HGB CONC 31.9 g/dL (32.0-36.0); MEAN CORPUSCULAR VOLUME 92.5 fL (81.0-99.0); MEAN PLATELET VOLUME 9.2 fL (7.9-10.8); MONOCYTES # (AUTO) 1.3 10^3/uL (0.0-1.0); MONOCYTES % (AUTO) 11.9 %; NEUTROPHILS # (AUTO) 5.7 10^3/uL (1.5-6.6); PLT - PLATELET COUNT 363 10^3/uL (130-450); RED BLOOD COUNT 3.89 10^6/uL (4.20-5.40); RED CELL DISTRIBUTION WIDTH 13.8 % (12.0-15.0); WHITE BLOOD COUNT 10.6 x10^3/uL (4.8-10.8)
[2021-01-08 04:45] LABS: CALCIUM 8.1 mg/dL (8.5-10.3); CREATININE 0.5 mg/dL (0.4-1.0)
[2021-01-08] MEDS: PHENAZOPYRIDINE 100 MG TABLET PO SCH ×2 (05:06→13:32)
[2021-01-08] MEDS: LEVALBUTEROL 1.25 MG/3 ML NEB INH PRN (07:40)
[2021-01-08 07:53] LABS: MAGNESIUM 1.6 mg/dL (1.7-2.8); PHOSPHORUS 2.7 mg/dL (2.5-4.6)
[2021-01-08] MEDS: BACLOFEN 10 MG TABLET PO SCH ×4 (08:12→20:13)
[2021-01-08] MEDS: OMEGA-3 ACID ETHYL ESTERS 1 GM CAPSULE PO SCH (08:12)
[2021-01-08] MEDS: FOLIC ACID 1 MG TABLET PO SCH (08:12)
[2021-01-08] MEDS: MORPHINE SULFATE ER 30 MG TABLET PO SCH ×2 (08:12→20:13)
[2021-01-08] MEDS: ASPIRIN CHEW 81 MG TABLET PO SCH (08:12)
[2021-01-08] MEDS: MULTIVITAMIN TABLET PO SCH (08:12)
[2021-01-08] MEDS: ENOXAPARIN 40 MG/0.4 ML SYRINGE SUBQ SCH (08:13)
[2021-01-08] MEDS: TAMSULOSIN 0.4 MG CAPSULE PO SCH (08:13)
[2021-01-08] MEDS: SODIUM CHLORIDE FLUSH 0.9% 10 ML SYRINGE IVP SCH ×3 (08:13→23:28)
--- NOTE | 2021-01-08 08:50 | PROVIDER PROGRESS NOTE ---
Assessment/Plan - Problem List (1) Pneumonia Qualifiers: Pneumonia type: due to unspecified organism Laterality: right Lung location: upper lobe of lung Qualified Code(s): J18.9 - Pneumonia, unspecified organism Assessment/Plan: Overall improving Gel and Levaquin. (2) Pulmonary edema Assessment/Plan: Improved/resolved. Patient is back to her baseline oxygen requirement of 2 L via nasal cannula. (3) Acute and chronic respiratory failure Assessment/Plan: Improving/resolved. Patient is back to her baseline of 2 L oxygen via nasal cannula. We will continue Levaquin and Flagyl. Continue breathing treatment with Xopenex. (4) Sinus tachycardia Assessment/Plan: Resolved. Metoprolol has been discontinued. (5) Altered mental status Qualifiers: Altered mental status type: somnolence Qualified Code(s): R40.0 - Somnolence Assessment/Plan: Patient's mentation is back to baseline. Her MS Contin and baclofen were resumed on the evening of 01/06/2021. Patient is able to communicate/interact with no difficulty. (6) Urinary retention Assessment/Plan: Urinary Machado catheter was removed this morning. Bladder scan 4 hours later showed about 400 mils of urine. Patient continues to her retain urine, will consider discharge tomorrow with a Machado catheter and and to follow-up with urology outpatient. (7) COPD (chronic obstructive pulmonary disease) Qualifiers: COPD type: COPD with acute exacerbation Qualified Code(s): J44.1 - Chronic obstructive pulmonary disease with (acute) exacerbation Assessment/Plan: Not in exacerbation. Xopenex every 4 hours as needed (8) History of stroke with residual deficit Assessment/Plan: Patient has right-sided residual deficit. Plan is for discharge to SNF for rehab tomorrow - Current Meds Current Meds: Current Medications Generic Name Dose Route Start Last Admin Trade Name Freq PRN Reason Stop Dose Admin Aspirin 81 mg 01/06/21 09:00 01/08/21 08:12 Aspirin Chew 81 Mg Tablet PO 81 mg DAILY NALDO Administration Atorvastatin Calcium 40 mg 01/06/21 21:00 01/07/21 22:04 Atorvastatin 40 Mg Tablet PO 40 mg QPM NALDO Administration Baclofen 20 mg 01/07/21 00:37 01/08/21 08:12 Baclofen 10 Mg Tablet PO 20 mg QID NALDO Administration Enoxaparin Sodium 40 mg 01/06/21 09:00 01/08/21 08:13 Enoxaparin 40 Mg/0.4 Ml Syringe SUBQ 40 mg DAILY NALDO Administration Folic Acid 1 mg 01/06/21 09:00 01/08/21 08:12 Folic Acid 1 Mg Tablet PO 1 mg DAILY NALDO Administration Levofloxacin 750 mg in 150 mls @ 100 mls/hr 01/06/21 01:00 01/08/21 02:11 Levaquin 750 Mg/150 Ml IV 01/10/21 02:29 Infused Q24H NALDO Infusion Metronidazole 500 mg in 100 mls @ 100 mls/hr 01/06/21 01:00 01/08/21 08:31 Flagyl 500 Mg/100 Ml IV 01/10/21 17:59 100 mls/hr Q8H NALDO Administration Levalbuterol HCl 1.25 mg 01/06/21 07:55 01/08/21 07:40 Levalbuterol 1.25 Mg/3 Ml Neb INH 1.25 mg Q4H PRN Administration Shortness of Air/Wheezing Morphine Sulfate 60 mg 01/07/21 09:00 01/08/21 08:12 Morphine Sulfate Er 30 Mg Tablet PO 60 mg BID NALDO Administration Multivitamins 1 tab 01/06/21 09:00 01/08/21 08:12 Multivitamin Tablet PO 1 tab DAILY NALDO Administration [id number] Ethyl Esters 1 gm 01/06/21 09:00 01/08/21 08:12 [place]-3 Acid Ethyl Esters 1 Gm Capsule PO 1 gm DAILY NALDO Administration Phenazopyridine HCl 100 mg 01/07/21 02:15 01/08/21 05:06 Phenazopyridine 100 Mg Tablet PO 100 mg TID NALDO Administration Sodium Chloride 10 ml 01/06/21 00:44 01/07/21 09:18 Sodium Chloride Flush 0.9% 10 Ml Syringe IVP 10 ml PRN PRN Administration NEEDED PER PROVIDER ORDERS Sodium Chloride 10 ml 01/06/21 01:00 01/08/21 08:13 Sodium Chloride Flush 0.9% 10 Ml Syringe IVP 10 ml 0100,0900,1700 NALDO Administration Tamsulosin HCl 0.4 mg 01/06/21 19:09 01/08/21 08:13 Tamsulosin 0.4 Mg Capsule PO 0.4 mg DAILY NALDO Administration - Lab Result Fish Bone Diagrams: 01/08/21 04:05 01/08/21 04:05 - Additional Planning My Orders: My Active Orders 01/07/21 09:09 Telemetry- [RC] Q4HR 01/07/21 10:07 Incentive Spirometry - RT [RC] TID PEP Therapy [RC] .QID 01/08/21 07:41 Miscellaenous Nursing Order [RC] QSHIFT 01/08/21 08:49 MAGNESIUM SULFATE 2 GRAMS IV X1 Magnesium Sulfate 2 Gram [Magnesium Sulfate] 2 gm in 50 ml IV ONCE Subjective - Subjective Patient Reports: Other (Patient was more awake and alert today than the previous days since her admission. More interactive today. She also ate most of her food today. However she is still very fixated on urination and constantly request to do so despite having a Machado catheter in place. She denies dyspnea.) Objective Vital Signs: Vital Signs - 24 hr 01/07/21 01/07/21 01/07/21 09:18 09:26 09:40 Temperature Heart Rate 94 Heart Rate [ Brachial] Heart Rate [ Sitting] Heart Rate [ Supine] Respiratory 18 22 Rate Blood Pressure 139/105 H Blood Pressure [Left Brachial artery] Blood Pressure [Right Brachial artery] Blood Pressure [Sitting] Blood Pressure [Supine] O2 Saturation 94 01/07/21 01/07/21 01/07/21 10:03 11:47 12:28 Temperature 36.8 C 36.9 C 36.6 C Heart Rate 94 Heart Rate [ 102 H 103 H Brachial] Heart Rate [ Sitting] Heart Rate [ Supine] Respiratory 24 20 18 Rate Blood Pressure Blood Pressure 128/83 H 134/77 H [Left Brachial artery] Blood Pressure [Right Brachial artery] Blood Pressure [Sitting] Blood Pressure [Supine] O2 Saturation 94 92 93 01/07/21 01/07/21 01/07/21 16:02 16:30 18:26 Temperature 36.5 C Heart Rate Heart Rate [ 108 H 106 H Brachial] Heart Rate [ 101 H Sitting] Heart Rate [ 109 H Supine] Respiratory 18 Rate Blood Pressure 141/88 H Blood Pressure 124/78 141/81 H [Left Brachial artery] Blood Pressure [Right Brachial artery] Blood Pressure 144/103 H [Sitting] Blood Pressure 142/103 H [Supine] O2 Saturation 93 01/07/21 01/07/21 01/07/21 18:31 18:36 18:41 Temperature Heart Rate Heart Rate [ 94 86 89 Brachial] Heart Rate [ Sitting] Heart Rate [ Supine] Respiratory Rate Blood Pressure Blood Pressure 129/86 H 133/83 H 122/86 H [Left Brachial artery] Blood Pressure [Right Brachial artery] Blood Pressure [Sitting] Blood Pressure [Supine] O2 Saturation 01/07/21 01/07/21 01/07/21 18:46 19:01 19:16 Temperature Heart Rate Heart Rate [ 95 98 90 Brachial] Heart Rate [ Sitting] Heart Rate [ Supine] Respiratory Rate Blood Pressure Blood Pressure 133/92 H 146/92 H 129/86 H [Left Brachial artery] Blood Pressure [Right Brachial artery] Blood Pressure [Sitting] Blood Pressure [Supine] O2 Saturation 01/07/21 01/07/21 01/07/21 19:31 21:00 23:28 Temperature 36.6 C Heart Rate Heart Rate [ 94 93 92 Brachial] Heart Rate [ Sitting] Heart Rate [ Supine] Respiratory 18 20 Rate Blood Pressure Blood Pressure 142/94 H 116/72 [Left Brachial artery] Blood Pressure 100/70 [Right Brachial artery] Blood Pressure [Sitting] Blood Pressure [Supine] O2 Saturation 93 92 01/08/21 01/08/21 01/08/21 02:11 02:13 04:16 Temperature 36.4 C L Heart Rate Heart Rate [ 96 71 Brachial] Heart Rate [ Sitting] Heart Rate [ Supine] Respiratory 15 Rate Blood Pressure 117/73 Blood Pressure 117/73 118/54 L [Left Brachial artery] Blood Pressure [Right Brachial artery] Blood Pressure [Sitting] Blood Pressure [Supine] O2 Saturation 95 01/08/21 01/08/21 07:50 07:58 Temperature 36.8 C Heart Rate 100 Heart Rate [ 89 Brachial] Heart Rate [ Sitting] Heart Rate [ Supine] Respiratory 22 18 Rate Blood Pressure Blood Pressure 122/80 [Left Brachial artery] Blood Pressure [Right Brachial artery] Blood Pressure [Sitting] Blood Pressure [Supine] O2 Saturation 92 Oxygen O2 Source Nasal cannula Oxygen Flow Rate 4 I&O (Last 24 Hrs): Intake and Output Totals x24h 01/06/21 01/07/21 01/08/21 23:59 23:59 23:59 Intake Total 4413.16 2876 930 Output Total 4550 4130 900 Balance -136.84 -1254 30 General: Alert, Oriented x3, No acute distress HEENT: PERRLA, EOMI Neck: Supple, No JVD Neuro: Alert, Oriented Times 3, Other (Sided weakness from previous CVA) Cardiovascular: Regular rate, Normal S1, Normal S2 Respiratory: Chest non-tender, No respiratory distress, Other (Coarse breath sounds) Abdomen: Normal bowel sounds, Soft Extremities: No clubbing, No cyanosis Skin: No rashes - Results Results: Laboratory Results WBC 10.6 x10^3/uL (4.8-10.8) 01/08/21 04:05 RBC 3.89 10^6/uL (4.20-5.40) L 01/08/21 04:05 Hgb 11.5 g/dL (12.0-16.0) L 01/08/21 04:05 Hct 36.0 % (37.0-47.0) L 01/08/21 04:05 MCV 92.5 fL (81.0-99.0) 01/08/21 04:05 MCH 29.6 pg (27.0-31.0) 01/08/21 04:05 MCHC 31.9 g/dL (32.0-36.0) L 01/08/21 04:05 RDW 13.8 % (12.0-15.0) 01/08/21 04:05 Plt Count 363 10^3/uL (130-450) 01/08/21 04:05 MPV 9.2 fL (7.9-10.8) 01/08/21 04:05 Neut # (Auto) 5.7 10^3/uL (1.5-6.6) 01/08/21 04:05 Lymph # (Auto) 3.2 10^3/uL (1.5-3.5) 01/08/21 04:05 [place] # (Auto) 1.3 10^3/uL (0.0-1.0) H 01/08/21 04:05 Eos # (Auto) 0.2 10^3/uL (0.0-0.7) 01/08/21 04:05 Baso # (Auto) 0.1 10^3/uL (0.0-0.1) 01/08/21 04:05 Absolute Nucleated RBC 0.00 x10^3/uL 01/08/21 04:05 Nucleated RBC % 0.0 /100WBC 01/08/21 04:05 Bld Gas Analysis Time 0258 01/06/21 02:50 Sample Site LEFT RADIAL 01/06/21 02:50 ABG pH 7.36 (7.35-7.45) 01/06/21 02:50 ABG pCO2 45 mmHg (34-45) 01/06/21 02:50 ABG pO2 65 mmHg (80-100) L 01/06/21 02:50 ABG HCO3 24.6 mmol/L (22.0-26.0) 01/06/21 02:50 ABG Total CO2 25.9 MMOL/L (21.0-29.0) 01/06/21 02:50 ABG O2 Saturation 92 % (94-98) L 01/06/21 02:50 ABG Base Excess -1.1 mmol/L (-2.0-3.0) 01/06/21 02:50 Hamzah Test POSITIVE 01/06/21 02:50 O2 Delivery Device NASAL CANNULA 01/06/21 02:50 O2 Liters/Min 2.00 LPM 01/06/21 02:50 FiO2 0.28 01/06/21 02:50 Sodium 132 mmol/L (135-145) L 01/08/21 04:05 Potassium 4.0 mmol/L (3.5-5.0) 01/08/21 04:05 Chloride 97 mmol/L (101-111) L 01/08/21 04:05 Carbon Dioxide 28 mmol/L (21-32) 01/08/21 04:05 Anion Gap 7.0 (6-13) 01/08/21 04:05 BUN 5 mg/dL (6-20) L 01/08/21 04:05 Creatinine 0.5 mg/dL (0.4-1.0) 01/08/21 04:05 Estimated GFR (MDRD) 125 (>89) 01/08/21 04:05 Glucose 95 mg/dL (70-100) 01/08/21 04:05 POC Whole Bld Glucose 94 mg/dL (70 - 100) 01/06/21 11:30 Lactic Acid 1.4 mmol/L (0.5-2.2) 01/05/21 21:36 Calcium 8.1 mg/dL (8.5-10.3) L 01/08/21 04:05 Phosphorus 2.7 mg/dL (2.5-4.6) 01/08/21 04:05 Magnesium 1.6 mg/dL (1.7-2.8) L 01/08/21 04:05 Total Bilirubin 0.5 mg/dL (0.2-1.0) 01/05/21 19:44 AST 29 IU/L (10-42) 01/05/21 19:44 ALT 30 IU/L (10-60) 01/05/21 19:44 Alkaline Phosphatase 75 IU/L (42-121) 01/05/21 19:44 Troponin I High Sens 9.0 ng/L (2.3-14.8) 01/08/21 04:05 B-Natriuretic Peptide 222 pg/mL (5-100) H 01/07/21 04:35 Total Protein 6.8 g/dL (6.7-8.2) 01/05/21 19:44 Albumin 2.9 g/dL (3.2-5.5) L 01/05/21 19:44 Globulin 3.9 g/dL (2.1-4.2) 01/05/21 19:44 Albumin/Globulin Ratio 0.7 (1.0-2.2) L 01/05/21 19:44 Urine Color YELLOW 01/05/21 22:00 Urine Clarity CLEAR (CLEAR) 01/05/21 22:00 Urine pH 6.0 PH (5.0-7.5) 01/05/21 22:00 Ur Specific [place] 1.010 (1.002-1.030) 01/05/21 22:00 Urine Protein NEGATIVE mg/dL (NEGATIVE) 01/05/21 22:00 Urine Glucose (UA) NEGATIVE mg/dL (NEGATIVE) 01/05/21 22:00 Urine Ketones NEGATIVE mg/dL (NEGATIVE) 01/05/21 22:00 Urine Occult Blood NEGATIVE (NEGATIVE) 01/05/21 22:00 Urine Nitrite NEGATIVE (NEGATIVE) 01/05/21 22:00 Urine Bilirubin NEGATIVE (NEGATIVE) 01/05/21 22:00 Urine Urobilinogen 0.2 (NORMAL) E.U./dL (NORMAL) 01/05/21 22:00 Ur Leukocyte Esterase NEGATIVE (NEGATIVE) 01/05/21 22:00 Ur Microscopic Review NOT INDICATED 01/05/21 22:00 Urine Culture Comments NOT INDICATED 01/05/21 22:00 Nasal Adenovirus (PCR) NOT DETECTED 01/05/21 22:10 Nasal B. parapertussis DNA (PCR) NOT DETECTED 01/05/21 22:10 Nasal Coronavir 229E PCR NOT DETECTED 01/05/21 22:10 Nasal Coronavir HKU1 PCR NOT DETECTED 01/05/21 22:10 Nasal Coronavir NL63 PCR NOT DETECTED 01/05/21 22:10 Nasal Coronavir OC43 PCR NOT DETECTED 01/05/21 22:10 Nasal Enterovir/Rhinovir PCR NOT DETECTED 01/05/21 22:10 Nasal Influenza B PCR NOT DETECTED 01/05/21 22:10 Nasal Influenza A PCR NOT DETECTED 01/05/21 22:10 Nasal Parainfluen 1 PCR NOT DETECTED 01/05/21 22:10 Nasal Parainfluen 2 PCR NOT DETECTED 01/05/21 22:10 Nasal Parainfluen 3 PCR NOT DETECTED 01/05/21 22:10 Nasal Parainfluen 4 PCR NOT DETECTED 01/05/21 22:10 Nasal RSV (PCR) NOT DETECTED 01/05/21 22:10 Nasal B.pertussis DNA PCR NOT DETECTED 01/05/21 22:10 Nasal C.pneumoniae (PCR) NOT DETECTED 01/05/21 22:10 Lon Human Metapneumo PCR NOT DETECTED 01/05/21 22:10 Nasal M.pneumoniae (PCR) NOT DETECTED 01/05/21 22:10 Nasal SARS-CoV-2 (PCR) NOT DETECTED 01/05/21 22:10 Urine Opiates Screen POSITIVE (NEGATIVE) H 01/05/21 22:00 Ur Oxycodone Screen POSITIVE (NEGATIVE) H 01/05/21 22:00 Urine Methadone Screen NEGATIVE (NEGATIVE) 01/05/21 22:00 Ur Propoxyphene Screen NEGATIVE (NEGATIVE) 01/05/21 22:00 Ur Barbiturates Screen NEGATIVE (NEGATIVE) 01/05/21 22:00 Ur Tricyclics Screen NEGATIVE (NEGATIVE) 01/05/21 22:00 Ur Phencyclidine Scrn NEGATIVE (NEGATIVE) 01/05/21 22:00 Ur Amphetamine Screen NEGATIVE (NEGATIVE) 01/05/21 22:00 U Methamphetamines Scrn NEGATIVE (NEGATIVE) 01/05/21 22:00 U Benzodiazepines Scrn POSITIVE (NEGATIVE) H 01/05/21 22:00 Urine Cocaine Screen NEGATIVE (NEGATIVE) 01/05/21 22:00 U Cannabinoids Screen NEGATIVE (NEGATIVE) 01/05/21 22:00 ABX Reporting Has patient been on IV antibiotics over the past 48 hours?: Yes
[2021-01-08] MEDS ORDERED: MAGNESIUM SULFATE 2 GRAM 2 GM/50 ML BAG IV ONE (09:30)
[2021-01-08] MEDS: ACETAMINOPHEN 325 MG TABLET PO PRN ×2 (11:25→23:37)
[2021-01-08] MEDS: ATORVASTATIN 40 MG TABLET PO SCH (20:12)
[2021-01-08] MEDS: diazePAM 5 MG TABLET PO PRN (21:39)
[2021-01-09] MEDS: metroNIDAZOLE 500 MG/100 ML 500 MG/100 ML BAG IV SCH ×3 (01:13→16:57)
[2021-01-09] MEDS: levoFLOXacin 750 MG/150 ML 750 MG/150 ML BAG IV SCH (01:13)
[2021-01-09 07:19] LABS: BASOPHILS # (AUTO) 0.1 10^3/uL (0.0-0.1); BASOPHILS % (AUTO) 0.8 %; EOSINOPHILS # (AUTO) 0.4 10^3/uL (0.0-0.7); EOSINOPHILS % (AUTO) 3.7 %; HGB - HEMOGLOBIN 12.2 g/dL (12.0-16.0); LYMPHOCYTES # (AUTO) 3.2 10^3/uL (1.5-3.5); MEAN CORPUSCULAR HEMOGLOBIN 29.6 pg (27.0-31.0); MEAN CORPUSCULAR HGB CONC 32.4 g/dL (32.0-36.0); MEAN CORPUSCULAR VOLUME 91.5 fL (81.0-99.0); MEAN PLATELET VOLUME 9.5 fL (7.9-10.8); MONOCYTES % (AUTO) 9.6 %; NEUTROPHILS # (AUTO) 5.9 10^3/uL (1.5-6.6); NEUTROPHILS % (AUTO) 55.6 %; PLT - PLATELET COUNT 379 10^3/uL (130-450); RED BLOOD COUNT 4.12 10^6/uL (4.20-5.40); RED CELL DISTRIBUTION WIDTH 13.8 % (12.0-15.0); WHITE BLOOD COUNT 10.5 x10^3/uL (4.8-10.8)
[2021-01-09 07:38] LABS: CALCIUM 8.5 mg/dL (8.5-10.3); CREATININE 0.5 mg/dL (0.4-1.0)
[2021-01-09] MEDS: LEVALBUTEROL 1.25 MG/3 ML NEB INH PRN (08:00)
--- NOTE | 2021-01-09 08:36 | XRAY Report ---
PROCEDURE: Chest 1 View X-Ray INDICATIONS: dyspnea and hypoxia TECHNIQUE: One view of the chest was acquired. COMPARISON: 01/07/2021 FINDINGS: Surgical changes and devices: Surgical clips are again noted in the region of right breast. Lungs and pleura: There is increased left pleural effusion with atelectasis of left upper and lower l obes. Ill-defined opacity opacity in right upper lung field is seen improved compared to previous zeus dy. No gross pneumothorax. Mediastinum: Pulmonary vascular congestion is seen. Heart size is enlarged. Bones and chest wall: No suspicious bony lesions. Overlying soft tissues appear unremarkable. IMPRESSION: Interval increased left-sided pleural effusion with atelectasis of left lung. Interval improved right upper lobe aeration. No gross pneumothorax. Reviewed by: Gerry Foreman MD on 01/09/2021 8:35 AM PST Approved by: Gerry Foreman MD on 01/09/2021 8:35 AM PST Station ID: [id number]
--- NOTE | 2021-01-09 09:28 | PROVIDER PROGRESS NOTE ---
Assessment/Plan - Problem List (1) Pneumonia Qualifiers: Pneumonia type: due to unspecified organism Laterality: right Lung location: upper lobe of lung Qualified Code(s): J18.9 - Pneumonia, unspecified organism Assessment/Plan: Continue Flagyl and Levaquin (2) Pulmonary edema Assessment/Plan: Patient was somewhat hypoxic today with an oxygen saturation of 87% on 2 L of oxygen. Chest x-ray showed increased pleural effusion on the left side While the right side shows significant improvement in aeration. Patient has scoliosis which results in the preference to lay on the left side constantly. This increased left-sided pleural effusion is likely related to patient's position Will encourage repositioning And patient sitting up in chair/ recliner (3) Acute and chronic respiratory failure Assessment/Plan: Patient was somewhat hypoxic today with an oxygen saturation of 87% on 2 L of oxygen. Chest x-ray showed increased pleural effusion on the left side While the right side shows significant improvement in aeration. Patient has scoliosis which results in the preference to lay on the left side constantly. This increased left-sided pleural effusion is likely related to patient's position Will encourage repositioning And patient sitting up in chair/ recliner (4) Sinus tachycardia Assessment/Plan: Resolved. We will continue to monitor (5) Altered mental status Qualifiers: Altered mental status type: somnolence Qualified Code(s): R40.0 - Somnolence Assessment/Plan: Resolved (6) Urinary retention Assessment/Plan: Mach[place] catheter resumed. Plan to discharge patient to care home facility with Machado catheter and ghislaine ledbetter will follow up with urologist outpatient. (7) COPD (chronic obstructive pulmonary disease) Qualifiers: COPD type: COPD with acute exacerbation Qualified Code(s): J44.1 - Chronic obstructive pulmonary disease with (acute) exacerbation Assessment/Plan: Not in exacerbation. Xopenex every 4 hours as needed (8) History of stroke with residual deficit Assessment/Plan: Patient has right-sided residual deficit. Plan is for discharge to SNF for rehab tomorrow - Current Meds Current Meds: Current Medications Generic Name Dose Route Start Last Admin Trade Name Freq PRN Reason Stop Dose Admin Acetaminophen 650 mg 01/06/21 00:44 01/08/21 23:37 Acetaminophen 325 Mg Tablet PO 650 mg Q4HR PRN Administration Pain 1 to 4 Aspirin 81 mg 01/06/21 09:00 01/08/21 08:12 Aspirin Chew 81 Mg Tablet PO 81 mg DAILY NALDO Administration Atorvastatin Calcium 40 mg 01/06/21 21:00 01/08/21 20:12 Atorvastatin 40 Mg Tablet PO 40 mg QPM NALDO Administration Baclofen 20 mg 01/07/21 00:37 01/08/21 20:13 Baclofen 10 Mg Tablet PO 20 mg QID NALDO Administration Diazepam 5 mg 01/08/21 21:21 01/08/21 21:39 Diazepam 5 Mg Tablet PO 5 mg QPM PRN Administration Insomnia Enoxaparin Sodium 40 mg 01/06/21 09:00 01/08/21 08:13 Enoxaparin 40 Mg/0.4 Ml Syringe SUBQ 40 mg DAILY NALDO Administration Folic Acid 1 mg 01/06/21 09:00 01/08/21 08:12 Folic Acid 1 Mg Tablet PO 1 mg DAILY NALDO Administration Levofloxacin 750 mg in 150 mls @ 100 mls/hr 01/06/21 01:00 01/09/21 02:52 Levaquin 750 Mg/150 Ml IV 01/10/21 02:29 Infused Q24H NALDO Infusion Metronidazole 500 mg in 100 mls @ 100 mls/hr 01/06/21 01:00 01/09/21 02:19 Flagyl 500 Mg/100 Ml IV 01/10/21 17:59 Infused Q8H NALDO Infusion Levalbuterol HCl 1.25 mg 01/06/21 07:55 01/09/21 08:00 Levalbuterol 1.25 Mg/3 Ml Neb INH 1.25 mg Q4H PRN Administration Shortness of Air/Wheezing Morphine Sulfate 60 mg 01/07/21 09:00 01/08/21 20:13 Morphine Sulfate Er 30 Mg Tablet PO 60 mg BID NALDO Administration Multivitamins 1 tab 01/06/21 09:00 01/08/21 08:12 Multivitamin Tablet PO 1 tab DAILY NALDO Administration Evkgn-3-Aovr Ethyl Esters 1 gm 01/06/21 09:00 01/08/21 08:12 [place]-3 Acid Ethyl Esters 1 Gm Capsule PO 1 gm DAILY NALDO Administration Sodium Chloride 10 ml 01/06/21 00:44 01/07/21 09:18 Sodium Chloride Flush 0.9% 10 Ml Syringe IVP 10 ml PRN PRN Administration NEEDED PER PROVIDER ORDERS Sodium Chloride 10 ml 01/06/21 01:00 01/08/21 23:28 Sodium Chloride Flush 0.9% 10 Ml Syringe IVP 10 ml 0100,0900,1700 NALDO Administration Tamsulosin HCl 0.4 mg 01/06/21 19:09 01/08/21 08:13 Tamsulosin 0.4 Mg Capsule PO 0.4 mg DAILY NALDO Administration - Lab Result Fish Bone Diagrams: 01/09/21 04:12 01/09/21 04:12 - Additional Planning My Orders: My Active Orders 01/08/21 Lunch Dysphagia Mechanically Altered Diet [DIET] 01/08/21 17:25 [place] Insertion [RC] QSHIFT Subjective - Subjective Patient Reports: Other (Patient awake alert and oriented x3 today. Denies any significant complaints. However she was mildly hypoxic with oxygen saturation dropping to 87% on 2 L. Diminished breath sounds on the left. She fed herself today.) Objective Vital Signs: Vital Signs - 24 hr 01/08/21 01/08/21 01/08/21 11:27 15:51 20:06 Temperature 36.4 C L 36.4 C L 36.5 C Heart Rate Heart Rate [ 97 91 96 Brachial] Respiratory 18 20 20 Rate Blood Pressure 108/67 119/70 121/74 [Left Brachial artery] O2 Saturation 94 92 93 01/08/21 01/08/21 01/08/21 20:29 20:30 22:28 Temperature 36.6 C Heart Rate Heart Rate [ Brachial] Respiratory Rate Blood Pressure [Left Brachial artery] O2 Saturation 90 L 90 L 01/08/21 01/09/21 01/09/21 23:43 01:57 04:19 Temperature 36.7 C 36.4 C L Heart Rate Heart Rate [ 92 88 Brachial] Respiratory 21 18 Rate Blood Pressure 123/72 122/70 [Left Brachial artery] O2 Saturation 90 L 90 L 90 L 01/09/21 01/09/21 08:00 09:00 Temperature 36.3 C L Heart Rate 114 H Heart Rate [ 91 Brachial] Respiratory 28 H 18 Rate Blood Pressure [Left Brachial artery] O2 Saturation 91 L Oxygen O2 Source Nasal cannula Oxygen Flow Rate 4 I&O (Last 24 Hrs): Intake and Output Totals x24h 01/07/21 01/08/21 01/09/21 23:59 23:59 23:59 Intake Total 2876 1660 600 Output Total 9896 1610 350 Balance -1254 -1070 250 General: Alert, Oriented x3, Other (Mild respiratory distress) HEENT: PERRLA, EOMI Neck: Supple, No JVD Neuro: Alert, Focal Deficits (Right sided residual weakness from previous CVA), Oriented Times 3 Cardiovascular: No murmurs, Other (Mildly tachycardic) Respiratory: Chest non-tender, Other (Decrease breath sounds on left side) Abdomen: Normal bowel sounds, Soft, No tenderness Extremities: No clubbing, No cyanosis, No edema Skin: No rashes - Results Results: Laboratory Results WBC 10.5 x10^3/uL (4.8-10.8) 01/09/21 04:12 RBC 4.12 10^6/uL (4.20-5.40) L 01/09/21 04:12 Hgb 12.2 g/dL (12.0-16.0) 01/09/21 04:12 Hct 37.7 % (37.0-47.0) 01/09/21 04:12 MCV 91.5 fL (81.0-99.0) 01/09/21 04:12 MCH 29.6 pg (27.0-31.0) 01/09/21 04:12 MCHC 32.4 g/dL (32.0-36.0) 01/09/21 04:12 RDW 13.8 % (12.0-15.0) 01/09/21 04:12 Plt Count 379 10^3/uL (130-450) 01/09/21 04:12 MPV 9.5 fL (7.9-10.8) 01/09/21 04:12 Neut # (Auto) 5.9 10^3/uL (1.5-6.6) 01/09/21 04:12 Lymph # (Auto) 3.2 10^3/uL (1.5-3.5) 01/09/21 04:12 [place] # (Auto) 1.0 10^3/uL (0.0-1.0) 01/09/21 04:12 Eos # (Auto) 0.4 10^3/uL (0.0-0.7) 01/09/21 04:12 Baso # (Auto) 0.1 10^3/uL (0.0-0.1) 01/09/21 04:12 Absolute Nucleated RBC 0.00 x10^3/uL 01/09/21 04:12 Nucleated RBC % 0.0 /100WBC 01/09/21 04:12 Bld Gas Analysis Time 0258 01/06/21 02:50 Sample Site LEFT RADIAL 01/06/21 02:50 ABG pH 7.36 (7.35-7.45) 01/06/21 02:50 ABG pCO2 45 mmHg (34-45) 01/06/21 02:50 ABG pO2 65 mmHg (80-100) L 01/06/21 02:50 ABG HCO3 24.6 mmol/L (22.0-26.0) 01/06/21 02:50 ABG Total CO2 25.9 MMOL/L (21.0-29.0) 01/06/21 02:50 ABG O2 Saturation 92 % (94-98) L 01/06/21 02:50 ABG Base Excess -1.1 mmol/L (-2.0-3.0) 01/06/21 02:50 Hamzah Test POSITIVE 01/06/21 02:50 O2 Delivery Device NASAL CANNULA 01/06/21 02:50 O2 Liters/Min 2.00 LPM 01/06/21 02:50 FiO2 0.28 01/06/21 02:50 Sodium 136 mmol/L (135-145) 01/09/21 04:12 Potassium 4.1 mmol/L (3.5-5.0) 01/09/21 04:12 Chloride 99 mmol/L (101-111) L 01/09/21 04:12 Carbon Dioxide 26 mmol/L (21-32) 01/09/21 04:12 Anion Gap 11.0 (6-13) 01/09/21 04:12 BUN 5 mg/dL (6-20) L 01/09/21 04:12 Creatinine 0.5 mg/dL (0.4-1.0) 01/09/21 04:12 Estimated GFR (MDRD) 125 (>89) 01/09/21 04:12 Glucose 82 mg/dL (70-100) 01/09/21 04:12 POC Whole Bld Glucose 94 mg/dL (70 - 100) 01/06/21 11:30 Lactic Acid 1.4 mmol/L (0.5-2.2) 01/05/21 21:36 Calcium 8.5 mg/dL (8.5-10.3) 01/09/21 04:12 Phosphorus 2.7 mg/dL (2.5-4.6) 01/08/21 04:05 Magnesium 1.9 mg/dL (1.7-2.8) 01/09/21 04:12 Total Bilirubin 0.5 mg/dL (0.2-1.0) 01/05/21 19:44 AST 29 IU/L (10-42) 01/05/21 19:44 ALT 30 IU/L (10-60) 01/05/21 19:44 Alkaline Phosphatase 75 IU/L (42-121) 01/05/21 19:44 Troponin I High Sens 9.0 ng/L (2.3-14.8) 01/08/21 04:05 B-Natriuretic Peptide 222 pg/mL (5-100) H 01/07/21 04:35 Total Protein 6.8 g/dL (6.7-8.2) 01/05/21 19:44 Albumin 2.9 g/dL (3.2-5.5) L 01/05/21 19:44 Globulin 3.9 g/dL (2.1-4.2) 01/05/21 19:44 Albumin/Globulin Ratio 0.7 (1.0-2.2) L 01/05/21 19:44 Urine Color YELLOW 01/05/21 22:00 Urine Clarity CLEAR (CLEAR) 01/05/21 22:00 Urine pH 6.0 PH (5.0-7.5) 01/05/21 22:00 Ur Specific [place] 1.010 (1.002-1.030) 01/05/21 22:00 Urine Protein NEGATIVE mg/dL (NEGATIVE) 01/05/21 22:00 Urine Glucose (UA) NEGATIVE mg/dL (NEGATIVE) 01/05/21 22:00 Urine Ketones NEGATIVE mg/dL (NEGATIVE) 01/05/21 22:00 Urine Occult Blood NEGATIVE (NEGATIVE) 01/05/21 22:00 Urine Nitrite NEGATIVE (NEGATIVE) 01/05/21 22:00 Urine Bilirubin NEGATIVE (NEGATIVE) 01/05/21 22:00 Urine Urobilinogen 0.2 (NORMAL) E.U./dL (NORMAL) 01/05/21 22:00 Ur Leukocyte Esterase NEGATIVE (NEGATIVE) 01/05/21 22:00 Ur Microscopic Review NOT INDICATED 01/05/21 22:00 Urine Culture Comments NOT INDICATED 01/05/21 22:00 Nasal Adenovirus (PCR) NOT DETECTED 01/05/21 22:10 Nasal B. parapertussis DNA (PCR) NOT DETECTED 01/05/21 22:10 Nasal Coronavir 229E PCR NOT DETECTED 01/05/21 22:10 Nasal Coronavir HKU1 PCR NOT DETECTED 01/05/21 22:10 Nasal Coronavir NL63 PCR NOT DETECTED 01/05/21 22:10 Nasal Coronavir OC43 PCR NOT DETECTED 01/05/21 22:10 Nasal Enterovir/Rhinovir PCR NOT DETECTED 01/05/21 22:10 Nasal Influenza B PCR NOT DETECTED 01/05/21 22:10 Nasal Influenza A PCR NOT DETECTED 01/05/21 22:10 Nasal Parainfluen 1 PCR NOT DETECTED 01/05/21 22:10 Nasal Parainfluen 2 PCR NOT DETECTED 01/05/21 22:10 Nasal Parainfluen 3 PCR NOT DETECTED 01/05/21 22:10 Nasal Parainfluen 4 PCR NOT DETECTED 01/05/21 22:10 Nasal RSV (PCR) NOT DETECTED 01/05/21 22:10 Nasal B.pertussis DNA PCR NOT DETECTED 01/05/21 22:10 Nasal C.pneumoniae (PCR) NOT DETECTED 01/05/21 22:10 Lon Human Metapneumo PCR NOT DETECTED 01/05/21 22:10 Nasal M.pneumoniae (PCR) NOT DETECTED 01/05/21 22:10 Nasal SARS-CoV-2 (PCR) NOT DETECTED 01/05/21 22:10 Urine Opiates Screen POSITIVE (NEGATIVE) H 01/05/21 22:00 Ur Oxycodone Screen POSITIVE (NEGATIVE) H 01/05/21 22:00 Urine Methadone Screen NEGATIVE (NEGATIVE) 01/05/21 22:00 Ur Propoxyphene Screen NEGATIVE (NEGATIVE) 01/05/21 22:00 Ur Barbiturates Screen NEGATIVE (NEGATIVE) 01/05/21 22:00 Ur Tricyclics Screen NEGATIVE (NEGATIVE) 01/05/21 22:00 Ur Phencyclidine Scrn NEGATIVE (NEGATIVE) 01/05/21 22:00 Ur Amphetamine Screen NEGATIVE (NEGATIVE) 01/05/21 22:00 U Methamphetamines Scrn NEGATIVE (NEGATIVE) 01/05/21 22:00 U Benzodiazepines Scrn POSITIVE (NEGATIVE) H 01/05/21 22:00 Urine Cocaine Screen NEGATIVE (NEGATIVE) 01/05/21 22:00 U Cannabinoids Screen NEGATIVE (NEGATIVE) 01/05/21 22:00 ABX Reporting Has patient been on IV antibiotics over the past 48 hours?: Yes
[2021-01-09] MEDS: MORPHINE SULFATE ER 30 MG TABLET PO SCH ×2 (10:25→20:43)
[2021-01-09] MEDS: ASPIRIN CHEW 81 MG TABLET PO SCH (10:25)
[2021-01-09] MEDS: OMEGA-3 ACID ETHYL ESTERS 1 GM CAPSULE PO SCH (10:25)
[2021-01-09] MEDS: FOLIC ACID 1 MG TABLET PO SCH (10:25)
[2021-01-09] MEDS: MULTIVITAMIN TABLET PO SCH (10:26)
[2021-01-09] MEDS: ACETAMINOPHEN 325 MG TABLET PO PRN ×2 (10:26→14:26)
[2021-01-09] MEDS: BACLOFEN 10 MG TABLET PO SCH ×4 (10:26→20:43)
[2021-01-09] MEDS: SENNA 8.6 MG TABLET PO SCH (10:29)
[2021-01-09] MEDS: DOCUSATE SODIUM 250 MG CAPSULE PO SCH (10:30)
[2021-01-09] MEDS: TAMSULOSIN 0.4 MG CAPSULE PO SCH (10:30)
[2021-01-09] MEDS: ENOXAPARIN 40 MG/0.4 ML SYRINGE SUBQ SCH (10:30)
[2021-01-09] MEDS: SODIUM CHLORIDE FLUSH 0.9% 10 ML SYRINGE IVP SCH ×2 (10:31→16:57)
[2021-01-09] MEDS: ATORVASTATIN 40 MG TABLET PO SCH (20:43)
[2021-01-09] MEDS: diazePAM 5 MG TABLET PO PRN (20:49)
[2021-01-10] MEDS: levoFLOXacin 750 MG/150 ML 750 MG/150 ML BAG IV SCH (00:21)
[2021-01-10] MEDS: ACETAMINOPHEN 325 MG TABLET PO PRN (00:21)
[2021-01-10] MEDS: SODIUM CHLORIDE FLUSH 0.9% 10 ML SYRINGE IVP SCH ×3 (00:22→16:57)
[2021-01-10] MEDS: metroNIDAZOLE 500 MG/100 ML 500 MG/100 ML BAG IV SCH ×3 (02:15→16:56)
[2021-01-10 07:56] LABS: BASOPHILS # (AUTO) 0.1 10^3/uL (0.0-0.1); BASOPHILS % (AUTO) 0.7 %; EOSINOPHILS # (AUTO) 0.3 10^3/uL (0.0-0.7); EOSINOPHILS % (AUTO) 3.5 %; HGB - HEMOGLOBIN 12.7 g/dL (12.0-16.0); LYMPHOCYTES # (AUTO) 2.6 10^3/uL (1.5-3.5); LYMPHOCYTES % (AUTO) 26.4 %; MEAN CORPUSCULAR HGB CONC 32.3 g/dL (32.0-36.0); MEAN CORPUSCULAR VOLUME 92.7 fL (81.0-99.0); MONOCYTES # (AUTO) 0.9 10^3/uL (0.0-1.0); MONOCYTES % (AUTO) 9.5 %; NEUTROPHILS # (AUTO) 5.8 10^3/uL (1.5-6.6); NEUTROPHILS % (AUTO) 59.3 %; PLT - PLATELET COUNT 365 10^3/uL (130-450); RED BLOOD COUNT 4.24 10^6/uL (4.20-5.40); WHITE BLOOD COUNT 9.8 x10^3/uL (4.8-10.8)
[2021-01-10 08:04] LABS: CALCIUM 8.8 mg/dL (8.5-10.3); CREATININE 0.5 mg/dL (0.4-1.0)
--- NOTE | 2021-01-10 08:06 | XRAY Report ---
PROCEDURE: Chest 1 View X-Ray INDICATIONS: left pleural effusion. hypoxia TECHNIQUE: One view of the chest was acquired. COMPARISON: Chest radiographs 01/09/2021 FINDINGS: Surgical changes and devices: Surgical clips are seen projecting over the right breast.. Lungs and pleura: A moderate left-sided pleural effusion appears mildly decreased in size when compar ed to the radiographs from 01/09/2021, which may be related to differences in positioning. Small right upper lobe opacity has decreased when compared to the radiographs from 01/09/2021 and 01/07/2021. Mediastinum: Mediastinal contours appear normal. Heart size is normal. 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 Chronic left-gabriel ed rib fractures are not well visualized due to positioning. Overlying soft tissues appear unremarkab le. IMPRESSION: Moderate left-sided pleural effusion has mildly decreased when compared to the radiographs from 2020. Small right upper lobe consolidation also appears decreased in size. Reviewed by: Thom Mazariegos MD on 01/10/2021 8:05 AM PST Approved by: Thom Mazariegos MD on 01/10/2021 8:05 AM PST Station ID: [id number]
[2021-01-10] MEDS: FOLIC ACID 1 MG TABLET PO SCH (08:19)
[2021-01-10] MEDS: MULTIVITAMIN TABLET PO SCH (08:19)
[2021-01-10] MEDS: ASPIRIN CHEW 81 MG TABLET PO SCH (08:19)
[2021-01-10] MEDS: MORPHINE SULFATE ER 30 MG TABLET PO SCH ×2 (08:19→20:36)
[2021-01-10] MEDS: DOCUSATE SODIUM 250 MG CAPSULE PO SCH (08:19)
[2021-01-10] MEDS: OMEGA-3 ACID ETHYL ESTERS 1 GM CAPSULE PO SCH (08:19)
[2021-01-10] MEDS: BACLOFEN 10 MG TABLET PO SCH ×4 (08:19→20:36)
[2021-01-10] MEDS: SENNA 8.6 MG TABLET PO SCH (08:20)
[2021-01-10] MEDS: ENOXAPARIN 40 MG/0.4 ML SYRINGE SUBQ SCH (08:20)
--- NOTE | 2021-01-10 13:15 | PROVIDER PROGRESS NOTE ---
Assessment/Plan - Problem List (1) Pneumonia Qualifiers: Pneumonia type: due to unspecified organism Laterality: right Lung location: upper lobe of lung Qualified Code(s): J18.9 - Pneumonia, unspecified organism Assessment/Plan: Today is the last day of Flagyl and Levaquin. (2) Pulmonary edema Assessment/Plan: Improved from the previous day. This is confirmed on repeat x-ray done today We will continue to encourage repositioning and patient sitting up in chair/recliner for longer durations She has a weak cough. Patient will also benefit from cough assist device (3) Acute and chronic respiratory failure Assessment/Plan: Improved/improving. Patient is back to 2 L of oxygen via nasal cannula which is her baseline with an oxygen saturation of 93%. Patient will complete antibiotics of Levaquin and Flagyl today. Patient will benefit from a cough assist device. Respiratory therapy to help facilitate the process We will continue repositioning and having patient up in chair/recliner for longer duration of time. (5) Altered mental status Qualifiers: Altered mental status type: somnolence Qualified Code(s): R40.0 - Somnolence Assessment/Plan: Resolved (6) Urinary retention Assessment/Plan: [place] catheter resumed. Plan to discharge patient to [facility] facility with Machado catheter and patient will follow up with urologist outpatient. (7) COPD (chronic obstructive pulmonary disease) Qualifiers: COPD type: COPD with acute exacerbation Qualified Code(s): J44.1 - Chronic obstructive pulmonary disease with (acute) exacerbation Assessment/Plan: Not in exacerbation. Xopenex every 4 hours as needed (8) History of stroke with residual deficit Assessment/Plan: Patient has right-sided residual deficit. Plan is for discharge to SNF for rehab tomorrow or when available - Current Meds Current Meds: Current Medications Generic Name Dose Route Start Last Admin Trade Name Freq PRN Reason Stop Dose Admin Acetaminophen 650 mg 01/06/21 00:44 01/10/21 00:21 Acetaminophen 325 Mg Tablet PO 650 mg Q4HR PRN Administration Pain 1 to 4 Aspirin 81 mg 01/06/21 09:00 01/10/21 08:19 Aspirin Chew 81 Mg Tablet PO 81 mg DAILY NALDO Administration Atorvastatin Calcium 40 mg 01/06/21 21:00 01/09/21 20:43 Atorvastatin 40 Mg Tablet PO 40 mg QPM NALDO Administration Baclofen 20 mg 01/07/21 00:37 01/10/21 12:46 Baclofen 10 Mg Tablet PO 20 mg QID NALDO Administration Diazepam 5 mg 01/08/21 21:21 01/09/21 20:49 Diazepam 5 Mg Tablet PO 5 mg QPM PRN Administration Insomnia Docusate Sodium 250 - 500 mg 01/09/21 10:20 01/10/21 08:19 Docusate Sodium 250 Mg Capsule PO 250 mg DAILY NALDO Administration Enoxaparin Sodium 40 mg 01/06/21 09:00 01/10/21 08:20 Enoxaparin 40 Mg/0.4 Ml Syringe SUBQ 40 mg DAILY NALDO Administration Folic Acid 1 mg 01/06/21 09:00 01/10/21 08:19 Folic Acid 1 Mg Tablet PO 1 mg DAILY NALDO Administration Metronidazole 500 mg in 100 mls @ 100 mls/hr 01/06/21 01:00 01/10/21 09:50 Flagyl 500 Mg/100 Ml IV 01/10/21 17:59 Infused Q8H NALDO Infusion Levalbuterol HCl 1.25 mg 01/06/21 07:55 01/09/21 08:00 Levalbuterol 1.25 Mg/3 Ml Neb INH 1.25 mg Q4H PRN Administration Shortness of Air/Wheezing Morphine Sulfate 60 mg 01/07/21 09:00 01/10/21 08:19 Morphine Sulfate Er 30 Mg Tablet PO 60 mg BID NALDO Administration Multivitamins 1 tab 01/06/21 09:00 01/10/21 08:19 Multivitamin Tablet PO 1 tab DAILY NALDO Administration Bacyl-1-[place] Ethyl Esters 1 gm 01/06/21 09:00 01/10/21 08:19 [place]-3 Acid Ethyl Esters 1 Gm Capsule PO 1 gm DAILY NALDO Administration Senna 8.6 - 17.2 mg 01/09/21 10:20 01/10/21 08:20 Senna 8.6 Mg Tablet PO 8.6 mg DAILY NALDO Administration Sodium Chloride 10 ml 01/06/21 00:44 01/07/21 09:18 Sodium Chloride Flush 0.9% 10 Ml Syringe IVP 10 ml PRN PRN Administration NEEDED PER PROVIDER ORDERS Sodium Chloride 10 ml 01/06/21 01:00 01/10/21 02:16 Sodium Chloride Flush 0.9% 10 Ml Syringe IVP 10 ml 0100,0900,1700 [facility] Administration - Lab Result Fish Bone Diagrams: 01/10/21 07:50 01/10/21 07:50 Subjective - Subjective Patient Reports: Other (Awake and alert at time of exam. She was seated up in the bedside recliner. Her respiratory status has significantly improved. She complained of not getting good enough sleep and requested Valium 10 mg tonight for sleep) Objective Vital Signs: Vital Signs - 24 hr 01/09/21 01/09/21 01/09/21 15:50 20:00 21:00 Temperature 36.5 C 36.4 C L Heart Rate 90 Heart Rate [ 100 94 Brachial] Respiratory 20 18 18 Rate Blood Pressure 140/76 H [Left Brachial artery] Blood Pressure 114/72 [Right Brachial artery] O2 Saturation 94 92 01/10/21 01/10/21 01/10/21 01:00 05:00 07:53 Temperature 37.1 C 36.6 C 36.5 C Heart Rate Heart Rate [ 88 86 99 Brachial] Respiratory 18 17 19 Rate Blood Pressure 132/69 H [Left Brachial artery] Blood Pressure 132/83 H 128/70 [Right Brachial artery] O2 Saturation 98 93 93 Oxygen O2 Source Nasal cannula Oxygen Flow Rate 4 I&O (Last 24 Hrs): Intake and Output Totals x24h 01/08/21 01/09/21 01/10/21 23:59 23:59 23:59 Intake Total 1660 1040 830 Output Total 2730 1225 1000 Balance -1070 -185 -170 General: Alert, Oriented x3, No acute distress HEENT: PERRLA, EOMI Neck: Supple, No JVD Neuro: Alert, Focal Deficits (Right-sided residual weakness from previous stroke), Oriented Times 3 Cardiovascular: Regular rate, Normal S1, Normal S2 Respiratory: Chest non-tender, No respiratory distress, Other (Mild crackles on the left but significantly improved from the previous day) Abdomen: Normal bowel sounds, Soft Extremities: No clubbing, No cyanosis, No edema Skin: No rashes - Results Results: Laboratory Results WBC 9.8 x10^3/uL (4.8-10.8) 01/10/21 07:50 RBC 4.24 10^6/uL (4.20-5.40) 01/10/21 07:50 Hgb 12.7 g/dL (12.0-16.0) 01/10/21 07:50 Hct 39.3 % (37.0-47.0) 01/10/21 07:50 MCV 92.7 fL (81.0-99.0) 01/10/21 07:50 MCH 30.0 pg (27.0-31.0) 01/10/21 07:50 MCHC 32.3 g/dL (32.0-36.0) 01/10/21 07:50 RDW 14.0 % (12.0-15.0) 01/10/21 07:50 Plt Count 365 10^3/uL (130-450) 01/10/21 07:50 MPV 9.0 fL (7.9-10.8) 01/10/21 07:50 Neut # (Auto) 5.8 10^3/uL (1.5-6.6) 01/10/21 07:50 Lymph # (Auto) 2.6 10^3/uL (1.5-3.5) 01/10/21 07:50 [place] # (Auto) 0.9 10^3/uL (0.0-1.0) 01/10/21 07:50 Eos # (Auto) 0.3 10^3/uL (0.0-0.7) 01/10/21 07:50 Baso # (Auto) 0.1 10^3/uL (0.0-0.1) 01/10/21 07:50 Absolute Nucleated RBC 0.00 x10^3/uL 01/10/21 07:50 Nucleated RBC % 0.0 /100WBC 01/10/21 07:50 Bld Gas Analysis Time 0258 01/06/21 02:50 Sample Site LEFT RADIAL 01/06/21 02:50 ABG pH 7.36 (7.35-7.45) 01/06/21 02:50 ABG pCO2 45 mmHg (34-45) 01/06/21 02:50 ABG pO2 65 mmHg (80-100) L 01/06/21 02:50 ABG HCO3 24.6 mmol/L (22.0-26.0) 01/06/21 02:50 ABG Total CO2 25.9 MMOL/L (21.0-29.0) 01/06/21 02:50 ABG O2 Saturation 92 % (94-98) L 01/06/21 02:50 ABG Base Excess -1.1 mmol/L (-2.0-3.0) 01/06/21 02:50 Hamzah Test POSITIVE 01/06/21 02:50 O2 Delivery Device NASAL CANNULA 01/06/21 02:50 O2 Liters/Min 2.00 LPM 01/06/21 02:50 FiO2 0.28 01/06/21 02:50 Sodium 139 mmol/L (135-145) 01/10/21 07:50 Potassium 4.4 mmol/L (3.5-5.0) 01/10/21 07:50 Chloride 97 mmol/L (101-111) L 01/10/21 07:50 Carbon Dioxide 26 mmol/L (21-32) 01/10/21 07:50 Anion Gap 16.0 (6-13) H 01/10/21 07:50 BUN 6 mg/dL (6-20) 01/10/21 07:50 Creatinine 0.5 mg/dL (0.4-1.0) 01/10/21 07:50 Estimated GFR (MDRD) 125 (>89) 01/10/21 07:50 Glucose 88 mg/dL (70-100) 01/10/21 07:50 POC Whole Bld Glucose 94 mg/dL (70 - 100) 01/06/21 11:30 Lactic Acid 1.4 mmol/L (0.5-2.2) 01/05/21 21:36 Calcium 8.8 mg/dL (8.5-10.3) 01/10/21 07:50 Phosphorus 2.7 mg/dL (2.5-4.6) 01/08/21 04:05 Magnesium 1.9 mg/dL (1.7-2.8) 01/09/21 04:12 Total Bilirubin 0.5 mg/dL (0.2-1.0) 01/05/21 19:44 AST 29 IU/L (10-42) 01/05/21 19:44 ALT 30 IU/L (10-60) 01/05/21 19:44 Alkaline Phosphatase 75 IU/L (42-121) 01/05/21 19:44 Troponin I High Sens 9.0 ng/L (2.3-14.8) 01/08/21 04:05 B-Natriuretic Peptide 222 pg/mL (5-100) H 01/07/21 04:35 Total Protein 6.8 g/dL (6.7-8.2) 01/05/21 19:44 Albumin 2.9 g/dL (3.2-5.5) L 01/05/21 19:44 Globulin 3.9 g/dL (2.1-4.2) 01/05/21 19:44 Albumin/Globulin Ratio 0.7 (1.0-2.2) L 01/05/21 19:44 Urine Color YELLOW 01/05/21 22:00 Urine Clarity CLEAR (CLEAR) 01/05/21 22:00 Urine pH 6.0 PH (5.0-7.5) 01/05/21 22:00 Ur Specific [place] 1.010 (1.002-1.030) 01/05/21 22:00 Urine Protein NEGATIVE mg/dL (NEGATIVE) 01/05/21 22:00 Urine Glucose (UA) NEGATIVE mg/dL (NEGATIVE) 01/05/21 22:00 Urine Ketones NEGATIVE mg/dL (NEGATIVE) 01/05/21 22:00 Urine Occult Blood NEGATIVE (NEGATIVE) 01/05/21 22:00 Urine Nitrite NEGATIVE (NEGATIVE) 01/05/21 22:00 Urine Bilirubin NEGATIVE (NEGATIVE) 01/05/21 22:00 Urine Urobilinogen 0.2 (NORMAL) E.U./dL (NORMAL) 01/05/21 22:00 Ur Leukocyte Esterase NEGATIVE (NEGATIVE) 01/05/21 22:00 Ur Microscopic Review NOT INDICATED 01/05/21 22:00 Urine Culture Comments NOT INDICATED 01/05/21 22:00 Nasal Adenovirus (PCR) NOT DETECTED 01/05/21 22:10 Nasal B. parapertussis DNA (PCR) NOT DETECTED 01/05/21 22:10 Nasal Coronavir 229E PCR NOT DETECTED 01/05/21 22:10 Nasal Coronavir HKU1 PCR NOT DETECTED 01/05/21 22:10 Nasal Coronavir NL63 PCR NOT DETECTED 01/05/21 22:10 Nasal Coronavir OC43 PCR NOT DETECTED 01/05/21 22:10 Nasal Enterovir/Rhinovir PCR NOT DETECTED 01/05/21 22:10 Nasal Influenza B PCR NOT DETECTED 01/05/21 22:10 Nasal Influenza A PCR NOT DETECTED 01/05/21 22:10 Nasal Parainfluen 1 PCR NOT DETECTED 01/05/21 22:10 Nasal Parainfluen 2 PCR NOT DETECTED 01/05/21 22:10 Nasal Parainfluen 3 PCR NOT DETECTED 01/05/21 22:10 Nasal Parainfluen 4 PCR NOT DETECTED 01/05/21 22:10 Nasal RSV (PCR) NOT DETECTED 01/05/21 22:10 Nasal B.pertussis DNA PCR NOT DETECTED 01/05/21 22:10 Nasal C.pneumoniae (PCR) NOT DETECTED 01/05/21 22:10 Lon Human Metapneumo PCR NOT DETECTED 01/05/21 22:10 Nasal M.pneumoniae (PCR) NOT DETECTED 01/05/21 22:10 Nasal SARS-CoV-2 (PCR) NOT DETECTED 01/05/21 22:10 Urine Opiates Screen POSITIVE (NEGATIVE) H 01/05/21 22:00 Ur Oxycodone Screen POSITIVE (NEGATIVE) H 01/05/21 22:00 Urine Methadone Screen NEGATIVE (NEGATIVE) 01/05/21 22:00 Ur Propoxyphene Screen NEGATIVE (NEGATIVE) 01/05/21 22:00 Ur Barbiturates Screen NEGATIVE (NEGATIVE) 01/05/21 22:00 Ur Tricyclics Screen NEGATIVE (NEGATIVE) 01/05/21 22:00 Ur Phencyclidine Scrn NEGATIVE (NEGATIVE) 01/05/21 22:00 Ur Amphetamine Screen NEGATIVE (NEGATIVE) 01/05/21 22:00 U Methamphetamines Scrn NEGATIVE (NEGATIVE) 01/05/21 22:00 U Benzodiazepines Scrn POSITIVE (NEGATIVE) H 01/05/21 22:00 Urine Cocaine Screen NEGATIVE (NEGATIVE) 01/05/21 22:00 U Cannabinoids Screen NEGATIVE (NEGATIVE) 01/05/21 22:00 ABX Reporting Has patient been on IV antibiotics over the past 48 hours?: Yes
[2021-01-10] MEDS: PHENAZOPYRIDINE 100 MG TABLET PO PRN (17:29)
[2021-01-10] MEDS: diazePAM 5 MG TABLET PO PRN (20:36)
[2021-01-10] MEDS: ATORVASTATIN 40 MG TABLET PO SCH (20:36)
[2021-01-11] MEDS: ACETAMINOPHEN 325 MG TABLET PO PRN (00:06)
[2021-01-11] MEDS: SODIUM CHLORIDE FLUSH 0.9% 10 ML SYRINGE IVP SCH ×3 (00:08→16:37)
--- NOTE | 2021-01-11 07:11 | PROVIDER PROGRESS NOTE ---
Assessment/Plan - Problem List (1) Pneumonia Qualifiers: Pneumonia type: due to unspecified organism Laterality: right Lung location: upper lobe of lung Qualified Code(s): J18.9 - Pneumonia, unspecified organism Assessment/Plan: Pleated IV antibiotics of Flagyl and Levaquin on 01/10/21 Patient's oxygen requirement is at baseline of 2 L via nasal cannula. Her oxygen saturation is 92%. (2) Pulmonary edema Assessment/Plan: Improved. We will continue to encourage repositioning and patient sitting up in chair/recliner for longer durations She has a weak cough. Patient will also benefit from cough assist device (3) Acute and chronic respiratory failure Assessment/Plan: Improved/improving. Patient is back to 2 L of oxygen via nasal cannula which is her baseline with an oxygen saturation of 92%. Patient completea antibiotics of Levaquin and Flagyl on 01/10/21. Patient will benefit from a cough assist device. Respiratory therapy to help facilitate the process We will continue repositioning and having patient up in chair/recliner for longer duration of time. (4) Sinus tachycardia Assessment/Plan: Resolved (5) Altered mental status Qualifiers: Altered mental status type: somnolence Qualified Code(s): R40.0 - Somnolence Assessment/Plan: Resolved (6) Urinary retention Assessment/Plan: [place] catheter resumed. Plan to discharge patient to [facility] facility with Machado catheter and patient will follow up with urologist outpatient. (7) COPD (chronic obstructive pulmonary disease) Qualifiers: COPD type: COPD with acute exacerbation Qualified Code(s): J44.1 - Chronic obstructive pulmonary disease with (acute) exacerbation Assessment/Plan: Not in exacerbation. Xopenex every 4 hours as needed (8) History of stroke with residual deficit Assessment/Plan: Patient has right-sided residual deficit. Plan is for discharge to SNF for rehab tomorrow or when available - Current Meds Current Meds: Current Medications Generic Name Dose Route Start Last Admin Trade Name Freq PRN Reason Stop Dose Admin Acetaminophen 650 mg 01/06/21 00:44 01/11/21 00:06 Acetaminophen 325 Mg Tablet PO 650 mg Q4HR PRN Administration Pain 1 to 4 Aspirin 81 mg 01/06/21 09:00 01/10/21 08:19 Aspirin Chew 81 Mg Tablet PO 81 mg DAILY NALDO Administration Atorvastatin Calcium 40 mg 01/06/21 21:00 01/10/21 20:36 Atorvastatin 40 Mg Tablet PO 40 mg QPM NALDO Administration Baclofen 20 mg 01/07/21 00:37 01/10/21 20:36 Baclofen 10 Mg Tablet PO 20 mg QID NALDO Administration Diazepam 5 mg 01/08/21 21:21 01/10/21 20:36 Diazepam 5 Mg Tablet PO 5 mg QPM PRN Administration Insomnia Docusate Sodium 250 - 500 mg 01/09/21 10:20 01/10/21 08:19 Docusate Sodium 250 Mg Capsule PO 250 mg DAILY NALDO Administration Enoxaparin Sodium 40 mg 01/06/21 09:00 01/10/21 08:20 Enoxaparin 40 Mg/0.4 Ml Syringe SUBQ 40 mg DAILY NALDO Administration Folic Acid 1 mg 01/06/21 09:00 01/10/21 08:19 Folic Acid 1 Mg Tablet PO 1 mg DAILY NALDO Administration Levalbuterol HCl 1.25 mg 01/06/21 07:55 01/09/21 08:00 Levalbuterol 1.25 Mg/3 Ml Neb INH 1.25 mg Q4H PRN Administration Shortness of Air/Wheezing Morphine Sulfate 60 mg 01/07/21 09:00 01/10/21 20:36 Morphine Sulfate Er 30 Mg Tablet PO 60 mg BID NALDO Administration Multivitamins 1 tab 01/06/21 09:00 01/10/21 08:19 Multivitamin Tablet PO 1 tab DAILY NALDO Administration [place]-5-Prlo Ethyl Esters 1 gm 01/06/21 09:00 01/10/21 08:19 [place]-3 Acid Ethyl Esters 1 Gm Capsule PO 1 gm DAILY NALDO Administration Phenazopyridine HCl 100 mg 01/08/21 14:07 01/10/21 17:29 Phenazopyridine 100 Mg Tablet PO 100 mg TID PRN Administration Analgesia Senna 8.6 - 17.2 mg 01/09/21 10:20 01/10/21 08:20 Senna 8.6 Mg Tablet PO 8.6 mg DAILY NALDO Administration Sodium Chloride 10 ml 01/06/21 00:44 01/07/21 09:18 Sodium Chloride Flush 0.9% 10 Ml Syringe IVP 10 ml PRN PRN Administration NEEDED PER PROVIDER ORDERS Sodium Chloride 10 ml 01/06/21 01:00 01/11/21 00:08 Sodium Chloride Flush 0.9% 10 Ml Syringe IVP 10 ml 0100,0900,1700 [facility] Administration - Lab Result Fish Bone Diagrams: 01/10/21 07:50 01/10/21 07:50 - Additional Planning My Orders: My Active Orders 01/11/21 17:00 polyethylene glycoL 3350 [Miralax] 17 gm PO DAILY Subjective - Subjective Patient Reports: Other (No new complaints today. Patient was up in bedside chair eating breakfast. Her oxygen saturation this morning has been 92% on 2 L via nasal cannula which is her baseline.) Objective Vital Signs: Vital Signs - 24 hr 01/10/21 01/10/21 01/10/21 07:53 10:30 13:34 Temperature 36.5 C 36.6 C Heart Rate 90 Heart Rate [ 99 111 H Brachial] Respiratory 19 18 19 Rate Blood Pressure 132/69 H 119/69 [Left Brachial artery] O2 Saturation 93 94 01/10/21 01/10/21 01/10/21 16:14 19:20 21:00 Temperature 36.7 C 36.4 C L Heart Rate 98 Heart Rate [ 97 100 Brachial] Respiratory 18 18 18 Rate Blood Pressure 124/77 144/82 H [Left Brachial artery] O2 Saturation 93 90 L 01/10/21 01/11/21 23:52 04:42 Temperature 36.7 C 36.3 C L Heart Rate Heart Rate [ 95 79 Brachial] Respiratory 22 28 H Rate Blood Pressure 141/77 H 129/80 [Left Brachial artery] O2 Saturation 91 L 92 Oxygen O2 Source Nasal cannula Oxygen Flow Rate 4 I&O (Last 24 Hrs): Intake and Output Totals x24h 01/09/21 01/10/21 01/11/21 23:59 23:59 23:59 Intake Total 1040 1230 250 Output Total 1225 1525 175 Balance -185 -295 75 General: Alert, Oriented x3, No acute distress HEENT: PERRLA, EOMI Neck: Supple, No JVD Neuro: Alert, Focal Deficits (Right residual weakness from old CVA.), Oriented Times 3 Cardiovascular: Regular rate, Normal S1, Normal S2 Respiratory: Chest non-tender, Other (Coarse breath sounds but no overt wheezing.) Abdomen: Normal bowel sounds, Soft Extremities: No clubbing, No cyanosis, No edema Skin: No rashes - Results Results: Laboratory Results WBC 9.8 x10^3/uL (4.8-10.8) 01/10/21 07:50 RBC 4.24 10^6/uL (4.20-5.40) 01/10/21 07:50 Hgb 12.7 g/dL (12.0-16.0) 01/10/21 07:50 Hct 39.3 % (37.0-47.0) 01/10/21 07:50 MCV 92.7 fL (81.0-99.0) 01/10/21 07:50 MCH 30.0 pg (27.0-31.0) 01/10/21 07:50 MCHC 32.3 g/dL (32.0-36.0) 01/10/21 07:50 RDW 14.0 % (12.0-15.0) 01/10/21 07:50 Plt Count 365 10^3/uL (130-450) 01/10/21 07:50 MPV 9.0 fL (7.9-10.8) 01/10/21 07:50 Neut # (Auto) 5.8 10^3/uL (1.5-6.6) 01/10/21 07:50 Lymph # (Auto) 2.6 10^3/uL (1.5-3.5) 01/10/21 07:50 Butts # (Auto) 0.9 10^3/uL (0.0-1.0) 01/10/21 07:50 Eos # (Auto) 0.3 10^3/uL (0.0-0.7) 01/10/21 07:50 Baso # (Auto) 0.1 10^3/uL (0.0-0.1) 01/10/21 07:50 Absolute Nucleated RBC 0.00 x10^3/uL 01/10/21 07:50 Nucleated RBC % 0.0 /100WBC 01/10/21 07:50 Bld Gas Analysis Time 0258 01/06/21 02:50 Sample Site LEFT RADIAL 01/06/21 02:50 ABG pH 7.36 (7.35-7.45) 01/06/21 02:50 ABG pCO2 45 mmHg (34-45) 01/06/21 02:50 ABG pO2 65 mmHg (80-100) L 01/06/21 02:50 ABG HCO3 24.6 mmol/L (22.0-26.0) 01/06/21 02:50 ABG Total CO2 25.9 MMOL/L (21.0-29.0) 01/06/21 02:50 ABG O2 Saturation 92 % (94-98) L 01/06/21 02:50 ABG Base Excess -1.1 mmol/L (-2.0-3.0) 01/06/21 02:50 Hamzah Test POSITIVE 01/06/21 02:50 O2 Delivery Device NASAL CANNULA 01/06/21 02:50 O2 Liters/Min 2.00 LPM 01/06/21 02:50 FiO2 0.28 01/06/21 02:50 Sodium 139 mmol/L (135-145) 01/10/21 07:50 Potassium 4.4 mmol/L (3.5-5.0) 01/10/21 07:50 Chloride 97 mmol/L (101-111) L 01/10/21 07:50 Carbon Dioxide 26 mmol/L (21-32) 01/10/21 07:50 Anion Gap 16.0 (6-13) H 01/10/21 07:50 BUN 6 mg/dL (6-20) 01/10/21 07:50 Creatinine 0.5 mg/dL (0.4-1.0) 01/10/21 07:50 Estimated GFR (MDRD) 125 (>89) 01/10/21 07:50 Glucose 88 mg/dL (70-100) 01/10/21 07:50 POC Whole Bld Glucose 94 mg/dL (70 - 100) 01/06/21 11:30 Lactic Acid 1.4 mmol/L (0.5-2.2) 01/05/21 21:36 Calcium 8.8 mg/dL (8.5-10.3) 01/10/21 07:50 Phosphorus 2.7 mg/dL (2.5-4.6) 01/08/21 04:05 Magnesium 1.9 mg/dL (1.7-2.8) 01/09/21 04:12 Total Bilirubin 0.5 mg/dL (0.2-1.0) 01/05/21 19:44 AST 29 IU/L (10-42) 01/05/21 19:44 ALT 30 IU/L (10-60) 01/05/21 19:44 Alkaline Phosphatase 75 IU/L (42-121) 01/05/21 19:44 Troponin I High Sens 9.0 ng/L (2.3-14.8) 01/08/21 04:05 B-Natriuretic Peptide 222 pg/mL (5-100) H 01/07/21 04:35 Total Protein 6.8 g/dL (6.7-8.2) 01/05/21 19:44 Albumin 2.9 g/dL (3.2-5.5) L 01/05/21 19:44 Globulin 3.9 g/dL (2.1-4.2) 01/05/21 19:44 Albumin/Globulin Ratio 0.7 (1.0-2.2) L 01/05/21 19:44 Urine Color YELLOW 01/05/21 22:00 Urine Clarity CLEAR (CLEAR) 01/05/21 22:00 Urine pH 6.0 PH (5.0-7.5) 01/05/21 22:00 Ur Specific [place] 1.010 (1.002-1.030) 01/05/21 22:00 Urine Protein NEGATIVE mg/dL (NEGATIVE) 01/05/21 22:00 Urine Glucose (UA) NEGATIVE mg/dL (NEGATIVE) 01/05/21 22:00 Urine Ketones NEGATIVE mg/dL (NEGATIVE) 01/05/21 22:00 Urine Occult Blood NEGATIVE (NEGATIVE) 01/05/21 22:00 Urine Nitrite NEGATIVE (NEGATIVE) 01/05/21 22:00 Urine Bilirubin NEGATIVE (NEGATIVE) 01/05/21 22:00 Urine Urobilinogen 0.2 (NORMAL) E.U./dL (NORMAL) 01/05/21 22:00 Ur Leukocyte Esterase NEGATIVE (NEGATIVE) 01/05/21 22:00 Ur Microscopic Review NOT INDICATED 01/05/21 22:00 Urine Culture Comments NOT INDICATED 01/05/21 22:00 Nasal Adenovirus (PCR) NOT DETECTED 01/05/21 22:10 Nasal B. parapertussis DNA (PCR) NOT DETECTED 01/05/21 22:10 Nasal Coronavir 229E PCR NOT DETECTED 01/05/21 22:10 Nasal Coronavir HKU1 PCR NOT DETECTED 01/05/21 22:10 Nasal Coronavir NL63 PCR NOT DETECTED 01/05/21 22:10 Nasal Coronavir OC43 PCR NOT DETECTED 01/05/21 22:10 Nasal Enterovir/Rhinovir PCR NOT DETECTED 01/05/21 22:10 Nasal Influenza B PCR NOT DETECTED 01/05/21 22:10 Nasal Influenza A PCR NOT DETECTED 01/05/21 22:10 Nasal Parainfluen 1 PCR NOT DETECTED 01/05/21 22:10 Nasal Parainfluen 2 PCR NOT DETECTED 01/05/21 22:10 Nasal Parainfluen 3 PCR NOT DETECTED 01/05/21 22:10 Nasal Parainfluen 4 PCR NOT DETECTED 01/05/21 22:10 Nasal RSV (PCR) NOT DETECTED 01/05/21 22:10 Nasal B.pertussis DNA PCR NOT DETECTED 01/05/21 22:10 Nasal C.pneumoniae (PCR) NOT DETECTED 01/05/21 22:10 Lon Human Metapneumo PCR NOT DETECTED 01/05/21 22:10 Nasal M.pneumoniae (PCR) NOT DETECTED 01/05/21 22:10 Nasal SARS-CoV-2 (PCR) NOT DETECTED 01/05/21 22:10 Urine Opiates Screen POSITIVE (NEGATIVE) H 01/05/21 22:00 Ur Oxycodone Screen POSITIVE (NEGATIVE) H 01/05/21 22:00 Urine Methadone Screen NEGATIVE (NEGATIVE) 01/05/21 22:00 Ur Propoxyphene Screen NEGATIVE (NEGATIVE) 01/05/21 22:00 Ur Barbiturates Screen NEGATIVE (NEGATIVE) 01/05/21 22:00 Ur Tricyclics Screen NEGATIVE (NEGATIVE) 01/05/21 22:00 Ur Phencyclidine Scrn NEGATIVE (NEGATIVE) 01/05/21 22:00 Ur Amphetamine Screen NEGATIVE (NEGATIVE) 01/05/21 22:00 U Methamphetamines Scrn NEGATIVE (NEGATIVE) 01/05/21 22:00 U Benzodiazepines Scrn POSITIVE (NEGATIVE) H 01/05/21 22:00 Urine Cocaine Screen NEGATIVE (NEGATIVE) 01/05/21 22:00 U Cannabinoids Screen NEGATIVE (NEGATIVE) 01/05/21 22:00 ABX Reporting Has patient been on IV antibiotics over the past 48 hours?: No
[2021-01-11] MEDS: MULTIVITAMIN TABLET PO SCH (08:50)
[2021-01-11] MEDS: ASPIRIN CHEW 81 MG TABLET PO SCH (08:51)
[2021-01-11] MEDS: DOCUSATE SODIUM 250 MG CAPSULE PO SCH (08:51)
[2021-01-11] MEDS: BACLOFEN 10 MG TABLET PO SCH ×4 (08:51→20:45)
[2021-01-11] MEDS: OMEGA-3 ACID ETHYL ESTERS 1 GM CAPSULE PO SCH (08:51)
[2021-01-11] MEDS: SENNA 8.6 MG TABLET PO SCH (08:51)
[2021-01-11] MEDS: MORPHINE SULFATE ER 30 MG TABLET PO SCH ×2 (08:51→20:44)
[2021-01-11] MEDS: polyethylene glycoL 3350 17 GM PACKET PO SCH (08:52)
[2021-01-11] MEDS: FOLIC ACID 1 MG TABLET PO SCH (08:52)
[2021-01-11] MEDS: ENOXAPARIN 40 MG/0.4 ML SYRINGE SUBQ SCH (08:52)
--- NOTE | 2021-01-11 09:48 | XRAY Report ---
PROCEDURE: Chest 1 View X-Ray INDICATIONS: dyspnea TECHNIQUE: One view of the chest was acquired. COMPARISON: Several priors, including 01/10/2021, 01/09/2021, 01/07/2021, 01/05/2021, and 12/21/2020. Chelita elation is also made with prior CT examinations 01/31/2018 and 05/27/2016. FINDINGS: Surgical changes and devices: Right breast clips are seen. Lungs and pleura: There is a left-sided pleural effusion. Patchy interstitial type opacities can be s een involving both lungs, including the right upper lobe and the left lower lung. There is elevation of the left hemidiaphragm. Mediastinum: Mediastinal contours appear normal. Heart size is moderately enlarged. Bones and chest wall: No suspicious bony lesions. There is a remote, poorly healed left clavicle fr acture. Age-appropriate degenerative changes are seen. Mild dextroconvex scoliotic curvature is seen . Overlying soft tissues appear unremarkable. IMPRESSION: Patchy opacities are seen. Please consider atypical infiltrate (including COVID pneumonia) and atelec tasis. Mild cardiomegaly. Incidental note is made of: Right breast clips Remote left clavicle fracture Dextroconvex scoliosis Reviewed by: Rolando Bliss MD on 01/11/2021 8:46 AM AKST Approved by: Rolando Bliss MD on 01/11/2021 8:46 AM AKST Station ID: [id number]
[2021-01-11] MEDS ORDERED: CARBOXYMETHYLCELLULOSE OPHTH DROPS EACHEYE PRN (13:36)
[2021-01-11] MEDS: PHENAZOPYRIDINE 100 MG TABLET PO PRN (16:41)
[2021-01-11] MEDS ORDERED: polyethylene glycoL 3350 17 GM PACKET PO SCH (17:00)
[2021-01-11] MEDS: ATORVASTATIN 40 MG TABLET PO SCH (20:45)
[2021-01-11] MEDS: diazePAM 5 MG TABLET PO PRN (20:45)
[2021-01-12] MEDS: SODIUM CHLORIDE FLUSH 0.9% 10 ML SYRINGE IVP SCH ×2 (01:26→08:42)
[2021-01-12] MEDS: DOCUSATE SODIUM 250 MG CAPSULE PO SCH (08:41)
[2021-01-12] MEDS: ASPIRIN CHEW 81 MG TABLET PO SCH (08:41)
[2021-01-12] MEDS: FOLIC ACID 1 MG TABLET PO SCH (08:41)
[2021-01-12] MEDS: MULTIVITAMIN TABLET PO SCH (08:41)
[2021-01-12] MEDS: MORPHINE SULFATE ER 30 MG TABLET PO SCH (08:41)
[2021-01-12] MEDS: SENNA 8.6 MG TABLET PO SCH (08:41)
[2021-01-12] MEDS: BACLOFEN 10 MG TABLET PO SCH ×2 (08:41→13:18)
[2021-01-12] MEDS: OMEGA-3 ACID ETHYL ESTERS 1 GM CAPSULE PO SCH (08:41)
[2021-01-12] MEDS: ENOXAPARIN 40 MG/0.4 ML SYRINGE SUBQ SCH (08:42)
[2021-01-12] MEDS: polyethylene glycoL 3350 17 GM PACKET PO SCH (08:42)
[2021-01-12 11:29] VITALS: BP 136/86
--- NOTE | 2021-01-12 11:45 | DISCHARGE SUMMARY ---
Discharge Summary Admit Date: 01/06/21 Discharge Date: 01/12/21 Discharging Provider: Gibran Hill Primary Care Provider: Richard Grullon Code Status: Attempt Resuscitation Condition at Discharge: Stable Discharge Disposition: 01 Home, Self Care - DIAGNOSES Admission Diagnoses: Altered mental status Community-acquired pneumonia Chronic respiratory failure with hypoxia Chronic pain COPD History of stroke with residual deficit Discharge Diagnoses with Status of Each Condition: Altered mental status: Resolved Community-acquired pneumonia: Resolved/improved. Patient completed a regiment of Levaquin and Flagyl Chronic respiratory failure with hypoxia: Improved patient back to baseline of 2 L nasal cannula with oxygen saturation around 92%. Chronic pain COPD: Chronic History of stroke with residual deficit: Chronic patient will go to outpatient physical therapy. Patient declined SNF for rehab - HPI History of Present Illness: Per HPI This is a 65-year-old female with a past medical history significant for stroke with residual right-sided weakness, TBI, COPD on 2 L of oxygen, chronic pain who presented to the emergency department today reportedly complaining of difficulty urinating and weakness. History is obtained from the ER physician and the EMR as the patient is somnolent and unable to provide a history. Patient was hospitalized here just couple weeks ago for metabolic alkalosis and new seizure which was attributed to hyponatremia. Is also been treated for pneumonia during that hospitalization and was also treated for pneumonia prior to admission when she was at [facility] at the end of October. She had told the emergency department provider that she had general weakness and difficulty urinating. She was initially sleepy but easily arousable. Throughout her stay in the emergency department, she became more lethargic. Her labs were unremarkable including a normal white count, renal function, and lactic acid. Her sodium was slightly decreased at 132 but stable compared to her prior hospitalization. Urinalysis was unremarkable. Chest x-ray did reveal consolidation in the right lung. Her CT the head showed no acute abnormalities. She was given ceftriaxone and azithromycin in the emergency department. Given her progressive lethargy and somnolence, medicine was consulted for admission. I could not discuss goals of care with the patient due to her mental status. Review of prior hospitalization revealed that she was a full code during that admission and so we will make her a full code for the time being. - HOSPITAL COURSE Hospital Course: Mental status was thought to be due to patient's opiate medications. Her MS Contin and baclofen were held for 24 to 36 hours.. Patient's mentation improved over the course of this time. Patient was also treated for community-acquired pneumonia with Levaquin and Flagyl. She was on antibiotics for 6 days. Her respiratory failure was thought to be secondary to several factors. Chronically she has COPD and is normally on 2 L of oxygen at home. Contributing factor was the pneumonia which was treated over her stay here. She also had a left pleural effusion for which she received Lasix. It was thought that this left pleural effusion could also be due to the patient's position. Due to her stroke she tends to deviate all limbs to what is the left side. With repositioning and keeping her up in the chair for longer periods of the day her respiratory status improved significantly. With the patient's history of COPD and also having a CVA with residual right- sided weakness, the patient also has a very weak, loose ineffective cough result ing in bouts of bronchitis and pneumonia. The patient was seen by respiratory therapy. It was determined that the patient could benefit from a CoughAssist device to help mobilize secretions and expec torate. This was ordered. Patient was also seen by physical therapy who recommended SNF for rehab. The patient eventually declined rehab placement and stated that she would rather go for outpatient rehab.. She asked to be discharged home on 01/12/21. The day before discharge she was reported that she was able to walk 10 feet with some assistance. The patient received the first dose of the COVID-19 vaccine in the hospital here. She is due for the next dose on January 29, 2021. This information was relayed to the patient and her who expressed understanding. And agreeable to follow-up for your next dose. - ALLERGIES Allergies/Adverse Reactions: Allergies Allergy/AdvReac Type Severity Reaction Status Date / Time No Known Drug Allergies Allergy Verified 01/05/21 19:48 - MEDICATIONS Home Medications: Ambulatory Orders Medication Instructions Recorded Confirmed Albuterol [Proventil Hfa] 1 puffs INH .P2P-B5H PRN 07/24/13 01/07/21 Baclofen 20 mg PO QID 07/24/13 01/07/21 Folic Acid 1 mg PO DAILY 07/24/13 01/07/21 Multivitamin [Multivitamins] 1 each PO DAILY 07/24/13 01/07/21 Aspirin [Tracey Chewable Aspirin] 81 mg PO DAILY 05/27/16 01/07/21 Morphine ER 60 mg PO BID 05/27/16 01/07/21 Atorvastatin Calcium 40 mg PO QPM 12/21/20 01/07/21 [place]-3 Fatty Acids/Fish Oil 1,000 mg PO DAILY 12/21/20 01/07/21 [[place]-3 Fish Oil 1,000 mg Sfgl] hydrOXYzine HCL [Hydroxyzine HCl] 25 mg PO BID 12/21/20 01/07/21 Acetaminophen [Aphen] 3 tab PO Q8H 01/07/21 01/07/21 Budesonide/Formoterol Fumarate 2 puffs INH BID 01/07/21 01/07/21 [Symbicort 160-4.5 Mcg Inhaler] Calcium Carb (Oyster Shell) 500 mg PO DAILY 01/07/21 01/07/21 [[place]-500] Cyanocobalamin [Vitamin B-12] 500 mcg PO DAILY 01/07/21 01/07/21 Diazepam [Valium] 10 mg PO DAILY 01/07/21 01/07/21 Furosemide [Lasix] 2 tab PO DAILY PRN 01/07/21 01/07/21 Ibuprofen [Advil] 200 mg PO DAILY 01/07/21 01/07/21 Ipratropium/Albuterol [Combivent 1 puffs IH Q6H 01/07/21 01/07/21 Respimat] - PHYSICAL EXAM AT DISCHARGE General Appearance: positive: No acute distress, Alert Eyes Bilateral: positive: PERRL, EOMI ENT: positive: No signs of dehydration Neck: positive: No JVD, Trachea midline Respiratory: positive: Chest non-tender, No respiratory distress, Other (Coarse breath sounds.). negative: Wheezes Cardiovascular: positive: Regular rate & rhythm, No murmur Abdomen: positive: Non-tender, No organomegaly, Nml bowel sounds, No distention. negative: Guarding, Rebound Back: positive: Nml inspection Skin: positive: Color nml, No rash, Warm, Dry Extremities: positive: Non-tender, Full ROM, Nml appearance Neurologic/Psychiatric: positive: Oriented x3, Other (Residual right-sided weakness from previous CVA) - LABS Result Diagrams: 01/10/21 07:50 01/10/21 07:50 - TIME SPENT Time Spent in Discharge (Minutes): 25
--- NOTE | 2021-01-12 11:52 | Discharge Plan ---
Discharge Plan Problem Reviewed?: Yes Disposition: Home, Self Care Condition: Stable Diet: Soft Activity Restrictions: Per Physical Therapy Assistance Devices: Walker (with assistance and per PT/OT recs) Health Concerns: You were admitted on 01/06/21 with altered mental status, chronic respiratory failure with hypoxia. The altered mental status was thought to be due to your home pain medications. These were held for a time and your mentation improved. At time of discharge she is awake alert oriented x3 and back to baseline. Respiratory failure was thought to be due to a community-acquired pneumonia, your baseline COPD and also pleural effusions which you had on the left side. This was treated with antibiotics. He completed a course of Levaquin and Flagyl. You received some Lasix over the course of your stay for the pleural effusion and with repositioning and having use it in bedside chair for longer times of the day ER respiratory function and the pleural effusion improved. He was seen by physical therapy and it was recommended that you go to group home facility for rehab however you declined and expressed a wish to go home. Consequently you are being discharged home where you plan to go for outpatient rehab. You have had an ongoing problem of urinary retention for which you have a Machado catheter in place. You follow-up with urology for further treatment of the urinary retention. You were evaluated by respiratory therapy and it was recommended that you get a cough assist device due to your history of COPD and also having a stroke with right-sided weakness. You have had week, loose and ineffective cough for which this device might help you minimize the chances of pneumonias and bronchitis. While in the hospital here you were given the first shot of the COVID-19 vaccine. You are due for the second shot on January 29, 2021. All of the above was explained to you and you expressed understanding and are agreeable to the plan. You will follow-up with your primary care physician Richard Grullon within 7 to 10 days. Plan of Treatment: You were admitted on 01/06/21 with altered mental status, chronic respiratory failure with hypoxia. The altered mental status was thought to be due to your home pain medications. These were held for a time and your mentation improved. At time of discharge she is awake alert oriented x3 and back to baseline. Respiratory failure was thought to be due to a community-acquired pneumonia, your baseline COPD and also pleural effusions which you had on the left side. This was treated with antibiotics. He completed a course of Levaquin and Flagyl. You received some Lasix over the course of your stay for the pleural effusion and with repositioning and having use it in bedside chair for longer times of the day ER respiratory function and the pleural effusion improved. He was seen by physical therapy and it was recommended that you go to group home facility for rehab however you declined and expressed a wish to go home. Consequently you are being discharged home where you plan to go for outpatient rehab. You have had an ongoing problem of urinary retention for which you have a Machado catheter in place. You follow-up with urology for further treatment of the urinary retention. You were evaluated by respiratory therapy and it was recommended that you get a cough assist device due to your history of COPD and also having a stroke with right-sided weakness. You have had week, loose and ineffective cough for which this device might help you minimize the chances of pneumonias and bronchitis. While in the hospital here you were given the first shot of the COVID-19 vaccine. You are due for the second shot on January 29, 2021. All of the above was explained to you and you expressed understanding and are agreeable to the plan. You will follow-up with your primary care physician Richard Grullon within 7 to 10 days. Care Goals: You were admitted on 01/06/21 with altered mental status, chronic respiratory failure with hypoxia. The altered mental status was thought to be due to your home pain medications. These were held for a time and your mentation improved. At time of discharge she is awake alert oriented x3 and back to baseline. Respiratory failure was thought to be due to a community-acquired pneumonia, your baseline COPD and also pleural effusions which you had on the left side. This was treated with antibiotics. He completed a course of Levaquin and Flagyl. You received some Lasix over the course of your stay for the pleural effusion and with repositioning and having use it in bedside chair for longer times of the day ER respiratory function and the pleural effusion improved. He was seen by physical therapy and it was recommended that you go to group home facility for rehab however you declined and expressed a wish to go home. Consequently you are being discharged home where you plan to go for outpatient rehab. You have had an ongoing problem of urinary retention for which you have a Machado catheter in place. You follow-up with urology for further treatment of the urinary retention. You were evaluated by respiratory therapy and it was recommended that you get a cough assist device due to your history of COPD and also having a stroke with right-sided weakness. You have had week, loose and ineffective cough for which this device might help you minimize the chances of pneumonias and bronchitis. While in the hospital here you were given the first shot of the COVID-19 vaccine. You are due for the second shot on January 29, 2021. All of the above was explained to you and you expressed understanding and are agreeable to the plan. You will follow-up with your primary care physician Richard Grullon within 7 to 10 days. Assessment: You were admitted on 01/06/21 with altered mental status, chronic respiratory failure with hypoxia. The altered mental status was thought to be due to your home pain medications. These were held for a time and your mentation improved. At time of discharge she is awake alert oriented x3 and back to baseline. Respiratory failure was thought to be due to a community-acquired pneumonia, your baseline COPD and also pleural effusions which you had on the left side. This was treated with antibiotics. He completed a course of Levaquin and Flagyl. You received some Lasix over the course of your stay for the pleural effusion and with repositioning and having use it in bedside chair for longer times of the day ER respiratory function and the pleural effusion improved. He was seen by physical therapy and it was recommended that you go to group home facility for rehab however you declined and expressed a wish to go home. Consequently you are being discharged home where you plan to go for outpatient rehab. You have had an ongoing problem of urinary retention for which you have a Machado catheter in place. You follow-up with urology for further treatment of the urinary retention. You were evaluated by respiratory therapy and it was recommended that you get a cough assist device due to your history of COPD and also having a stroke with right-sided weakness. You have had week, loose and ineffective cough for which this device might help you minimize the chances of pneumonias and bronchitis. While in the hospital here you were given the first shot of the COVID-19 vaccine. You are due for the second shot on January 29, 2021. All of the above was explained to you and you expressed understanding and are agreeable to the plan. You will follow-up with your primary care physician Richard Grullon within 7 to 10 days. No Smoking: If you smoke, Please STOP! Call for help. Follow-up with: Richard Grullon MD [Primary Care Provider] -
== END 2021-01-12 14:04 | disposition home or self-care (01) | DRG 190 ==
LOC: EDUNIT# → ED 19:30 → MS2 01-06 00:44 → OBSVTOIN 01-06 17:17
PROVIDERS: ADMIT Internal Medicine; ATTEND Internal Medicine
DX: J44.0 Chronic obstructive pulmonary disease with (acute) lower respiratory infection (principal); J18.9 Pneumonia, unspecified organism; J96.21 Acute and chronic respiratory failure with hypoxia; I69.951 Hemiplegia and hemiparesis following unspecified cerebrovascular disease affecting right dominant side; E87.1 Hypo-osmolality and hyponatremia; J90 Pleural effusion, not elsewhere classified; R40.0 Somnolence; T40.2X5A Adverse effect of other opioids, initial encounter; Y92.009 Unspecified place in unspecified non-institutional (private) residence as the place of occurrence of the external cause; J44.1 Chronic obstructive pulmonary disease with (acute) exacerbation; G89.29 Other chronic pain; M54.9 Dorsalgia, unspecified; E78.00 Pure hypercholesterolemia, unspecified; R35.0 Frequency of micturition; F41.9 Anxiety disorder, unspecified; R33.9 Retention of urine, unspecified; Z20.822 Contact with and (suspected) exposure to COVID-19; F10.11 Alcohol abuse, in remission; Z99.81 Dependence on supplemental oxygen; Z79.891 Long term (current) use of opiate analgesic; Z79.82 Long term (current) use of aspirin; Z79.51 Long term (current) use of inhaled steroids; Z79.1 Long term (current) use of non-steroidal anti-inflammatories (NSAID); Z79.899 Other long term (current) drug therapy; Z86.718 Personal history of other venous thrombosis and embolism; Z87.891 Personal history of nicotine dependence
CPT/HCPCS: 0202U; 36415; 36600; 51701; 70450; 71045; 80048; 80053; 80306; 81003; 82803; 83605; 83735; 83880; 84100; 84484; 85025; 87040; 92526; 92610; 93005; 93306; 94640; 96361; 96365; 96366; 96368; 96372; 96375; 96376; 97116; 97162; 97530; 99285; A9270; J1650; J7120; 81001; 87086

== ENCOUNTER 2021-01-18 18:40 | Outpatient (CLI) | payer BC | END 2021-01-18 18:41 | disposition short-term general hospital (02) | LOC: EMS 18:40 | DX: R40.4 Transient alteration of awareness (principal) | CPT/HCPCS: A0425; A0427 ==

== ENCOUNTER 2021-01-24 05:05 | Outpatient (CLI) | payer BC | END 2021-01-24 05:06 | disposition left against medical advice (07) | LOC: EMS 05:05 | DX: R06.82 Tachypnea, not elsewhere classified (principal) ==